=== PATIENT | female | born 1970 | race Caucasian/White ===

== ENCOUNTER 2019-01-23 13:02 | Emergency (ER) | payer SELFPAY ==
[2019-01-23] MEDS ORDERED: ONDANSETRON 4 MG/2 ML VIAL ONE (13:34)
[2019-01-23] MEDS ORDERED: MORPHINE 4 MG/ML SYR ONE (13:34)
[2019-01-23] MEDS ORDERED: NA CHLORIDE 0.9% 500 ML ONE (13:35)
--- NOTE | 2019-01-23 13:59 | RAD REPORT ---
EXAM DESCRIPTION: CT - Stone Protocol - 01/23/2019 1:35 pm CLINICAL HISTORY: Abdominal pain. Lower abdominal pain. Urinary frequency COMPARISON: None. TECHNIQUE: Computed axial tomography of the abdomen pelvis was obtained without oral or IV contrast. Lack of IV and oral contrast limits evaluation of solid organs, bowel, and vessels. Coronal reformat morena images were obtained and reviewed. All CT scans are performed using dose optimization technique as appropriate and may include automated exposure control or mA/KV adjustment according to patient size. FINDINGS: 1 millimeter right renal calculus. No hydronephrosis. An ureteral calculus is not noted. A bladder calculus is not present. The left lobe of the liver is prominent. Spleen, pancreas and adrenals appear grossly normal There is no evidence of diverticulitis. Small umbilical hernia contains fat IMPRESSION: 1 millimeter nonobstructing right renal calculus
[2019-01-23 14:03] LABS: Absolute Lymphocytes (CBC) 3.7 K/uL (0.7-4.9); Lymphocytes % 30.8 % (15.3-44.8); MPV 8.8 fL (7.6-11.3); RBC Red Blood Cell Count 4.48 M/uL (3.86-4.86)
[2019-01-23 14:23] LABS: Albumin 3.6 g/dL (3.4-5.0); Bilirubin Direct 0.1 mg/dL (0-0.2); Bilirubin Total 0.4 mg/dL (0.2-1.0); Potassium 3.9 mmol/L (3.5-5.1); Protein, Total 8.6 g/dL (6.4-8.2)
[2019-01-23 15:25] LABS: Urine Bacteria 20-50 /HPF (<20); Urine Culture Reflex Order REFLEXED; Urine RBC <5 /HPF (NONE SEEN)
[2019-01-23] MEDS ORDERED: CIPROFLOXACIN HCL 500 MG TAB ONE (15:37)
--- NOTE | 2019-01-23 15:41 | ER ---
Nurse's Notes [facility] Name: Pao Gonzales Age: 48 yrs Sex: Female : 1970 Arrival Date: 01/23/2019 Time: 13:05 Bed 24 Private MD: Diagnosis: Urinary tract infection, site not specified Presentation: 01/23 13:08 Presenting complaint: Right flank pain, fever, headache, and nausea x 2 days. TMAX 101. hb Transition of care: patient was not received from another setting of care. Onset of symptoms was January 22, 2019. Risk Assessment: Do you want to hurt yourself or someone else? Patient reports no desire to harm self or others. Initial Sepsis Screen: Does the patient meet any 2 criteria? No. Patient's initial sepsis screen is negative. Does the patient have a suspected source of infection? No. Patient's initial sepsis screen is negative. Care prior to arrival: None. 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 - Social history:: Smoking status: Patient uses tobacco products, smokes one-half pack cigarettes per day. - Ebola Screening: : No symptoms or risks identified at this time. Screenin:49 Abuse screen: Denies threats or abuse. Nutritional screening: No deficits noted. tw2 Tuberculosis screening: No symptoms or risk factors identified. Fall Risk None identified. Assessment: 13:49 General: Appears in no apparent distress. Behavior is calm, cooperative, appropriate tw2 for age. Pain: Complains of pain in abdomen. Neuro: Level of Consciousness is awake, alert, obeys commands, Oriented to person, place. Cardiovascular: Heart tones S1 S2 Patient's skin is warm and dry. Respiratory: Airway is patent Respiratory effort is even, unlabored, Respiratory pattern is regular, symmetrical, Breath sounds are clear bilaterally. GI: Abdomen is flat, non-distended, Bowel sounds present X 4 quads. Reports lower abdominal pain, upper abdominal pain, nausea. : No signs and/or symptoms were reported regarding the genitourinary system. EENT: No signs and/or symptoms were reported regarding the EENT system. Derm: No signs and/or symptoms reported regarding the dermatologic system. Musculoskeletal: Range of motion: intact in all extremities. 15:04 Reassessment: Patient appears in no apparent distress at this time. No changes from tw2 previously documented assessment. Patient and/or family updated on plan of care and expected duration. Pain level reassessed. Patient is alert, oriented x 3, equal unlabored respirations, skin warm/dry/pink. 15:51 Reassessment: Patient appears in no apparent distress at this time. No changes from tw2 previously documented assessment. Patient and/or family updated on plan of care and expected duration. Pain level reassessed. Patient is alert, oriented x 3, equal unlabored respirations, skin warm/dry/pink. Vital Signs: 13:09 BP 105 / 74; Pulse 100; Resp 16; Temp 98.7; Pulse Ox 100% on R/A; Weight 81.65 kg; hb Height 5 ft. 7 in. (170.18 cm); Pain 10/10; 15:04 BP 99 / 67; Pulse 74; Resp 17; Temp 97.9(TE); Pulse Ox 99% on R/A; tw2 13:09 Body Mass Index 28.19 (81.65 kg, 170.18 cm) hb ED Course: 13:05 Patient arrived in ED. mr 13:09 Triage completed. hb 13:09 Arm band placed on. hb 13:12 Bed in low position. Call light in reach. Pulse ox on. NIBP on. tw2 13:19 Tacos Barnes NP is PHCP. pm1 13:19 Cesar Harris MD is Attending Physician. pm1 13:31 Marizol Yi RN is Primary Nurse. tw2 13:40 Inserted saline lock: 22 gauge in right antecubital area, using aseptic technique. tw2 Blood collected. 15:05 Urine Microscopic Only Sent. tw2 15:52 No provider procedures requiring assistance completed. IV discontinued, intact, tw2 bleeding controlled, No redness/swelling at site. Pressure dressing applied. Administered Medications: 13:42 Drug: Zofran 4 mg Route: IVP; Site: right antecubital; tw2 14:33 Follow up: Response: No adverse reaction; Nausea is decreased tw2 13:44 Drug: morphine 4 mg {Note: RASS 0.} Route: IVP; Site: right antecubital; tw2 14:33 Follow up: Response: No adverse reaction; Pain is decreased; RASS: Alert and Calm (0) tw2 13:47 Drug: NS 0.9% 500 ml Route: IV; Rate: bolus; Site: right antecubital; tw2 15:20 Follow up: Response: No adverse reaction; IV Status: Completed infusion; IV Intake: tw2 500ml 15:38 Drug: Cipro 500 mg Route: PO; tw2 15:50 Follow up: Response: No adverse reaction tw2 Intake: 15:20 IV: 500ml; Total: 500ml. tw2 Outcome: 15:39 Discharge ordered by MD. pm1 15:52 Patient left the ED. tw2 15:52 Discharged to home ambulatory, with significant other. tw2 15:52 Condition: stable 15:52 Discharge instructions given to patient, significant other, Instructed on discharge instructions, follow up and referral plans. no drinking with medication, no driving heavy equipment, medication usage, Demonstrated understanding of instructions, follow-up care, medications, Prescriptions given X 4. Signatures: Maria L Hidalgo Patrick, JOSHUA SOFTWARE APPLICATION TESTER pm1 Elly Jaramillo, GREG GARZA Marizol Yi RN RN tw2
--- NOTE | 2019-01-23 15:42 | EDPHYS ---
Physician Documentation [facility] Name: Pao Gonzales Age: 48 yrs Sex: Female : 1970 Arrival Date: 01/23/2019 Time: 13:05 Bed 24 Private MD: ED Physician Cesar Harris HPI: 01/23 15:33 This 48 yrs old Female presents to ER via Ambulatory with complaints of Back pm1 Pain. 15:36 The patient presents with pain that is acute, with no known mechanism of injury. The pm1 symptoms are located in the right low back. Onset: The symptoms/episode began/occurred 3 day(s) ago. The pain does not radiate. Associated signs and symptoms: Pertinent positives: dysuria, fever, nausea, Pertinent negatives: abdominal pain, chest pain, numbness, tingling, vomiting. Modifying factors: The patient symptoms are alleviated by nothing, the patient symptoms are aggravated by nothing. Severity of symptoms: in the emergency department the symptoms are actually worse. The patient has not recently seen a physician, and does not have an established primary care provider. 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 - Social history:: Smoking status: Patient uses tobacco products, smokes one-half pack cigarettes per day. - Ebola Screening: : No symptoms or risks identified at this time. ROS: 15:33 Eyes: Negative for injury, pain, redness, and discharge, ENT: Negative for injury, pm1 pain, and discharge, Neck: Negative for injury, pain, and swelling, Cardiovascular: Negative for chest pain, palpitations, and edema, Respiratory: Negative for shortness of breath, cough, wheezing, and pleuritic chest pain. 15:33 : Negative for injury, bleeding, discharge, and swelling, MS/Extremity: Negative for injury and deformity, Skin: Negative for injury, rash, and discoloration. 15:33 Neuro: Negative for headache, weakness, numbness, tingling, and seizure. 15:33 Constitutional: Positive for subjective fever. 15:33 Abdomen/GI: Positive for nausea, Negative for abdominal pain, vomiting, diarrhea, constipation. 15:33 Back: Positive for flank pain, on the right. 15:43 : Positive for burning with urination. pm1 Exam: 15:33 Constitutional: This is a well developed, well nourished patient who is awake, alert, pm1 and in no acute distress. Head/Face: Normocephalic, atraumatic. Eyes: Pupils equal round and reactive to light, extra-ocular motions intact. Lids and lashes normal. Conjunctiva and sclera are non-icteric and not injected. Cornea within normal limits. Periorbital areas with no swelling, redness, or edema. ENT: Nares patent. No nasal discharge, no septal abnormalities noted. Tympanic membranes are normal and external auditory canals are clear. Oropharynx with no redness, swelling, or masses, exudates, or evidence of obstruction, uvula midline. Mucous membranes moist. Neck: Trachea midline, no thyromegaly or masses palpated, and no cervical lymphadenopathy. Supple, full range of motion without nuchal rigidity, or vertebral point tenderness. No Meningismus. Chest/axilla: Normal chest wall appearance and motion. Nontender with no deformity. No lesions are appreciated. Cardiovascular: Regular rate and rhythm with a normal S1 and S2. No gallops, murmurs, or rubs. Normal PMI, no JVD. No pulse deficits. Respiratory: Lungs have equal breath sounds bilaterally, clear to auscultation and percussion. No rales, rhonchi or wheezes noted. No increased work of breathing, no retractions or nasal flaring. Abdomen/GI: Soft, non-tender, with normal bowel sounds. No distension or tympany. No guarding or rebound. No evidence of tenderness throughout. 15:33 Skin: Warm, dry with normal turgor. Normal color with no rashes, no lesions, and no evidence of cellulitis. MS/ Extremity: Pulses equal, no cyanosis. Neurovascular intact. Full, normal range of motion. 15:33 Back: normal spinal alignment noted, vertebral tenderness, is not appreciated. 15:33 Neuro: Orientation: is normal, Motor: is normal, moves all fours, Sensation: is normal, no obvious gross deficits. Vital Signs: 13:09 BP 105 / 74; Pulse 100; Resp 16; Temp 98.7; Pulse Ox 100% on R/A; Weight 81.65 kg; hb Height 5 ft. 7 in. (170.18 cm); Pain 10/10; 15:04 BP 99 / 67; Pulse 74; Resp 17; Temp 97.9(TE); Pulse Ox 99% on R/A; tw2 13:09 Body Mass Index 28.19 (81.65 kg, 170.18 cm) hb MDM: 13:19 Patient medically screened. pm1 15:38 Data reviewed: vital signs. Data interpreted: Pulse oximetry: on room air is 99 %. pm1 Interpretation: normal. Counseling: I had a detailed discussion with the patient and/or guardian regarding: the historical points, exam findings, and any diagnostic results supporting the discharge/admit diagnosis, lab results, radiology results, the need for outpatient follow up, to return to the emergency department if symptoms worsen or persist or if there are any questions or concerns that arise at home. 01/23 13:23 Order name: Basic Metabolic Panel pm1 01/23 13:23 Order name: CBC with Diff pm01/23 13:23 Order name: Creatinine for Radiology pm01/23 13:23 Order name: Hepatic Function pm1 01/23 13:23 Order name: Lipase pm1 01/23 14:10 Order name: CBC with Automated Diff; Complete Time: 14:14 EDNV 01/23 13:23 Order name: CT Stone Protocol pm1 01/23 14:14 Order name: Urine Microscopic Only; Complete Time: 15:28 pm1 01/23 14:23 Order name: Creatinine (Radiology Only); Complete Time: 14:27 EDNV 01/23 14:26 Order name: Basic Metabolic Panel; Complete Time: 14:27 EDNV 01/23 14:26 Order name: Liver (Hepatic) Function; Complete Time: 14:27 EDNV 01/23 14:26 Order name: Lipase; Complete Time: 14:27 EDNV 01/23 15:08 Order name: Urine Dipstick--Ancillary (enter results) em01/23 15:09 Order name: Urine --Ancillary (enter results) em01/23 13:23 Order name: IV Saline Lock; Complete Time: 13:48 pm1 09/03 13:23 Order name: Labs collected and sent; Complete Time: 13:48 pm1 01/23 14:14 Order name: Urine Dipstick-Ancillary (obtain specimen); Complete Time: 15:05 pm1 01/23 14:14 Order name: Urine Test (obtain specimen); Complete Time: 15:05 pm1 Administered Medications: 13:42 Drug: Zofran 4 mg Route: IVP; Site: right antecubital; tw2 14:33 Follow up: Response: No adverse reaction; Nausea is decreased tw2 13:44 Drug: morphine 4 mg {Note: RASS 0.} Route: IVP; Site: right antecubital; tw2 14:33 Follow up: Response: No adverse reaction; Pain is decreased; RASS: Alert and Calm (0) tw2 13:47 Drug: NS 0.9% 500 ml Route: IV; Rate: bolus; Site: right antecubital; tw2 15:20 Follow up: Response: No adverse reaction; IV Status: Completed infusion; IV Intake: tw2 500ml 15:38 Drug: Cipro 500 mg Route: PO; tw2 15:50 Follow up: Response: No adverse reaction tw2 Disposition: 21:49 Co-signature as Attending Physician, Cesar Harris MD Available for consultation at ps1 all times . Disposition: 01/23/19 15:39 Discharged to Home. Impression: Urinary tract infection, site not specified. - Condition is Stable. - Discharge Instructions: Urinary Tract Infection, Adult. - Prescriptions for Tylenol- Codeine #3 300-30 mg Oral Tablet - take 2 tablets by ORAL route every 6 hours As needed; 20 tablet. Zofran 4 mg Oral Tablet - take 1 tablet by ORAL route every 8 hours As needed; 20 tablet. Cipro 500 mg Oral Tablet - take 1 tablet by ORAL route every 12 hours for 10 days; 20 tablet. Pyridium 200 mg Oral Tablet - take 1 tablet by ORAL route every 8 hours for 3 days; 9 tablet. - Medication Reconciliation Form, Thank You Letter, Antibiotic Education, Prescription Opioid Use form. - Follow up: Emergency Department; When: As needed; Reason: Worsening of condition. Follow up: Private Physician; When: 2 - 3 days; Reason: Recheck today's complaints, Continuance of care, Re-evaluation by your physician. - Problem is new. - Symptoms have improved. Signatures: Dispatcher [employer] EDMS Tacos Barnes, COIL WINDER HAND COIL WINDER HAND pm1 Elly Jaramillo, RN RN hb Marizol Yi RN RN tw2 eCsar Harris MD MD ps1 Corrections: (The following items were deleted from the chart) 15:37 15:33 Abdomen/GI: Positive for nausea and vomiting, Negative for abdominal pain, pm1 diarrhea, constipation, pm1 15:37 15:33 Back: Positive for flank pain, on the left, pm1 pm1 15:43 15:36 Associated signs and symptoms: Pertinent positives: fever, nausea, Pertinent pm1 negatives: abdominal pain, chest pain, dysuria, numbness, tingling, vomiting, pm1 15:52 15:39 01/23/2019 15:39 Discharged to Home. Impression: Urinary tract infection, site tw2 not specified. Condition is Stable. Forms are Medication Reconciliation Form, Thank You Letter, Antibiotic Education, Prescription Opioid Use. Follow up: Emergency Department; When: As needed; Reason: Worsening of condition. Follow up: Private Physician; When: 2 - 3 days; Reason: Recheck today's complaints, Continuance of care, Re-evaluation by your physician. Problem is new. Symptoms have improved. pm1
[2019-01-23 16:29] LABS: Urine Blood 1+ (NEG); Urine Glucose NEGATIVE (NEG); Urine Protein NEGATIVE (NEG); Urine pH 6.5 (5.0-7.0)
== END 2019-01-23 15:52 | disposition home or self-care (01) ==
LOC: ER 13:02
DX: N39.0 Urinary tract infection, site not specified (principal); F17.210 Nicotine dependence, cigarettes, uncomplicated; Z88.0 Allergy status to penicillin; Z88.6 Allergy status to analgesic agent
CPT/HCPCS: 36415; 74176; 76377; 80048; 80076; 81003; 81015; 81025; 83690; 85025; 87077; 87086; 87088; 87186; 96361; 96374; 96375; 99284; J2405

== ENCOUNTER 2019-05-18 11:05 | Inpatient (IN) | payer SELFPAY ==
--- OUTSIDE RECORDS SUMMARY | 2019-05-18 11:12 | XMS REPORT ---
:1970 [facility] [address] [place] [address] Care Team Providers Name Role Phone ALEAH ELPIDIO DAMICO Unavailable Unavailable Problems This patient has no known problems. Allergies, Adverse Reactions, Alerts This patient has no known allergies or adverse reactions. Medications This patient has no known medications. Results Test Description Test Time Test Comments Text Results Atomic Results Result Comments SCREEN, URINE 2018-12-21 07:40:00 Test Item Value Reference Range Comments TEST URINE (BEAKER) (test kgrk=487) Negative BASIC METABOLIC [id number] 07:30:00 Test Item Value Reference Range Comments SODIUM (BEAKER) (test 138 meq/L 136-145 heul=540) POTASSIUM (BEAKER) (test 3.8 meq/L 3.5-5.1 qbcv=145) CHLORIDE (BEAKER) (test 109 meq/L 98-107 xkvk=379) CO2 (BEAKER) (test 22 meq/L 22-29 hrzc=056) BLOOD UREA NITROGEN 12 mg/dL 7-21 (BEAKER) (test qzgx=772) CREATININE (BEAKER) (test 0.75 mg/dL 0.57-1.25 azyv=078) GLUCOSE RANDOM (BEAKER) 95 mg/dL 70-105 (test acqw=527) CALCIUM (BEAKER) (test 9.8 mg/dL 8.4-10.2 hecm=410) EGFR (BEAKER) (test mL/min/1.73 sq m INSUFFICIENT CLINICAL DATA lins=8521) TO CALCULATE ESTIMATED GFR. CBC W/PLT COUNT & AUTO [id number] 07:20:00 Test Item Value Reference Range Comments WHITE BLOOD CELL COUNT (BEAKER) (test jnch=690) 16.6 K/ L 3.5-10.5 RED BLOOD CELL COUNT (BEAKER) (test hgiv=420) 4.86 M/ L 3.93-5.22 HEMOGLOBIN (BEAKER) (test zsaj=540) 15.7 GM/DL 11.2-15.7 HEMATOCRIT (BEAKER) (test ekhb=216) 47.1 % 34.1-44.9 MEAN CORPUSCULAR VOLUME (BEAKER) (test wknt=575) 96.9 fL 79.4-94.8 MEAN CORPUSCULAR HEMOGLOBIN (BEAKER) (test 32.3 pg 25.6-32.2 cjye=920) MEAN CORPUSCULAR HEMOGLOBIN CONC (BEAKER) (test 33.3 GM/DL 32.2-35.5 mhhb=715) RED CELL DISTRIBUTION WIDTH (BEAKER) (test 12.7 % 11.7-14.4 xlkd=717) PLATELET COUNT (BEAKER) (test nswl=921) 285 K/CU MM 150-450 MEAN PLATELET VOLUME (BEAKER) (test jpay=827) 10.2 fL 9.4-12.3 NUCLEATED RED BLOOD CELLS (BEAKER) (test 0 /100 WBC 0-0 qycs=900) NEUTROPHILS RELATIVE PERCENT (BEAKER) (test 82 % qfbr=985) LYMPHOCYTES RELATIVE PERCENT (BEAKER) (test 10 % ssyp=780) MONOCYTES RELATIVE PERCENT (BEAKER) (test 7 % wkms=901) EOSINOPHILS RELATIVE PERCENT (BEAKER) (test 0 % pgap=075) BASOPHILS RELATIVE PERCENT (BEAKER) (test 0 % gxbs=483) NEUTROPHILS ABSOLUTE COUNT (BEAKER) (test 13.56 K/ L 1.56-6.13 ooae=694) LYMPHOCYTES ABSOLUTE COUNT (BEAKER) (test 1.67 K/ L 1.18-3.74 gibt=007) MONOCYTES ABSOLUTE COUNT (BEAKER) (test 1.16 K/ L 0.24-0.36 mexw=065) EOSINOPHILS ABSOLUTE COUNT (BEAKER) (test 0.06 K/ L 0.04-0.36 pzad=119) BASOPHILS ABSOLUTE COUNT (BEAKER) (test 0.05 K/ L 0.01-0.08 spta=308) IMMATURE GRANULOCYTES-RELATIVE PERCENT (BEAKER) 0 % 0-1 (test ynpl=2960) URINALYSIS W/ REFLEX URINE [id number] 07:17:00 Test Item Value Reference Range Comments COLOR (BEAKER) (test wlsr=342) Yellow CLARITY (BEAKER) (test ivqw=334) Cloudy SPECIFIC GRAVITY UA (BEAKER) (test atpl=996) 1.013 1.001-1.035 PH UA (BEAKER) (test mxwj=637) 7.0 5.0-8.0 PROTEIN UA (BEAKER) (test qwqf=533) 200 mg/dL Negative GLUCOSE UA (BEAKER) (test jaih=236) Negative Negative KETONES UA (BEAKER) (test jsam=157) Negative Negative BILIRUBIN UA (BEAKER) (test unbo=744) Negative Negative BLOOD UA (BEAKER) (test dvro=693) Moderate Negative NITRITE UA (BEAKER) (test wmfx=891) Positive Negative LEUKOCYTE ESTERASE UA (BEAKER) (test htvi=737) Large Negative UROBILINOGEN UA (BEAKER) (test eqsi=670) 0.2 mg/dL 0.2-1.0 RBC UA (BEAKER) (test dxun=788) 149 /HPF WBC UA (BEAKER) (test oyvk=260) 1380 /HPF BACTERIA (BEAKER) (test bsin=349) Many MUCUS (BEAKER) (test vlqh=4025) Few SQUAMOUS EPITHELIAL (BEAKER) (test jrvk=313) 3 /HPF SOURCE(BEAKER) (test hudj=4758)
--- OUTSIDE RECORDS SUMMARY | 2019-05-18 11:12 | XMS REPORT | Continuity of Care Document ---
:1970 Author Organization [facility] Address [address] [place] [address] Phone Unavailable Care Team Providers Name Role Phone PHYSICIAN, NO Primary Care Physician Unavailable Insurance Providers Guarantor Pao Mi Address [address] [place] [address] Email NONE Payer Self Pay Insurance Subscriber's Name Pao Russo Relationship Self / Same As Patient Group Number NA Group Name NA Advance Directives Directive Response Recorded Date/Time Advance Directives No 12/25/15 6:09pm Advance Directive on File No 07/29/18 5:36am Directive to Physicians/Living Will No 12/25/15 6:09pm Health Care Proxy No 12/25/15 6:09pm Name of Surrogate/Decision Maker NA 07/29/18 6:17am Organ Donor No 12/25/15 6:09pm Medical Power of Hoe Runner No 12/25/15 6:09pm Patient/Family Given Education Material R/T Y - KR...07/29/18 07/29/18 6: 17am Directives? Chief Complaint and Reason for Visit Chief Complaint Chest Pain Reason for Visit Chest pain Problems Medical Problem Onset Date Status Lice infested hair Unknown Acute Past Problems Medical Problem Onset Date Status Chest pain Unknown Acute Right ankle injury Unknown Acute Sprain of right knee/leg Unknown Acute Medications No medication information available. Social History Social History Problem Response Recorded Date/Time Onset Date Status Hx Physical Abuse No 07/29/2018 5:36am Not Applicable Not Applicable Smoking Status Start Date Stop Date Current every day smoker Hospital Discharge Instructions No hospital discharge instruction information available. Plan of Care Discharge Date 07/29/18 10:40am Instructions/Education Provided Chest Wall Pain, [id number] Forms Provided Portal Welcome Letter Prescriptions See Medication Section Referrals NO PHYSICIAN Functional Status No functional status information available. Allergies, Adverse Reactions, Alerts Allergen Type Severity Reaction Status Last Updated Aspirin ([id number]) Allergy Unknown Active 12/25/15 Penicillins ([id number]) Allergy Unknown Active 12/25/15 Immunizations No immunization information available. Vital Signs Acute Vital Signs Vital Response Date/Time Blood Pressure 120/78 mm Hg 07/29/2018 10:39am Pulse Pulse Rate (adult) 70 beats per minute (60 - 100) 07/29/2018 10:39am Respiratory Rate 13 breaths per minute (10 - 24) 07/29/2018 10:39am Temperature Source Oral 07/29/2018 10:39am Height 5 ft 7 in 07/29/2018 5:36am Weight 180.44 lb 07/29/2018 5:36am Body Mass Index 28.3 kg/m^2 07/29/2018 5:36am Results Laboratory Results Test Name Result Units Flags Reference Collection Result Comments Date/Time Date/Time White Blood 8.7 K/ul 4.0-11.5 07/29/2018 07/29/2018 Count 5:43am 5:59am Red Blood Count 4.41 M/ul 3.80-5.20 07/29/2018 07/29/2018 5:43am 5:59am Hemoglobin 14.6 g/dl 10.5-15.7 07/29/2018 07/29/2018 5:43am 5:59am Hematocrit 43.5 % 34.0-50.0 07/29/2018 07/29/2018 5:43am 5:59am Mean 98.5 fl H 78-98 07/29/2018 07/29/2018 Corpuscular 5:43am 5:59am Volume Mean 33.0 pg 26.2-33.4 07/29/2018 07/29/2018 Corpuscular 5:43am 5:59am Hemoglobin Mean 33.5 g/dl 31.5-36.2 07/29/2018 07/29/2018 Corpuscular 5:43am 5:59am Hemoglobin Concent Red Cell 12.2 % 11.5-15.5 07/29/2018 07/29/2018 Distribution 5:43am 5:59am Width Platelet Count 265 K/ul 137-338 07/29/2018 07/29/2018 5:43am 5:59am Mean Platelet 7.2 fl L 8.4-11.8 07/29/2018 07/29/2018 Volume 5:43am 5:59am Neutrophils (%) 46.2 % 44.4-80.1 07/29/2018 07/29/2018 (Auto) 5:43am 5:59am Lymphocytes (%) 40.3 % 10.0-50.0 07/29/2018 07/29/2018 (Auto) 5:43am 5:59am Monocytes (%) 9.5 % 3.6-12.04 07/29/2018 07/29/2018 (Auto) 5:43am 5:59am Eosinophils (%) 1.7 % 0.0-5.41 07/29/2018 07/29/2018 (Auto) 5:43am 5:59am Basophils (%) 2.4 % H 0.0-0.79 07/29/2018 07/29/2018 (Auto) 5:43am 5:59am Prothrombin 10.7 SECONDS 10.3-12.3 07/29/2018 07/29/2018 Time 5:43am 6:15am THERAPEUTIC LEVEL: 1.5 to 1.9 times normal range of PT Prothromb Time 0.97 07/29/2018 07/29/2018 International 5:43am 6:15am Recommended therapeutic range for patients receiving Ratio warfarin (coumadin) therapy: INR is 2.0 to 3.0 Recommended range for patients with mechanical prosthetic heart valves: INR is 2.5 to 3.5 Activated 25.4 SECONDS 22.5-37.0 07/29/2018 07/29/2018 Partial 5:43am 6:15am Thromboplast Time Random Glucose 76 mg/dL 74-106 07/29/2018 07/29/2018 5:43am 6:08am Blood Urea 11 mg/dL 6-20 07/29/2018 07/29/2018 Nitrogen 5:43am 6:08am Serum 270 L 280-300 07/29/2018 07/29/2018 Osmolality 5:43am 6:08am Creatinine 0.7 mg/dL 0.50-0.90 07/29/2018 07/29/2018 5:43am 6:08am Glomerular > 60.00 07/29/2018 07/29/2018 GFR RESULTS ARE REPORTED IN mL/min/1.73m2. Filtration Rate 5:43am 6:08am Calc Normal GFR: >60mL/min Moderately decreased GFR: 30-59 mL/min Severely decreased GFR: 15-29 mL/min Kidney Failure (or Dialysis): <15 mL/min The calculated eGFR is not valid for patients younger than 18 years or older than 75 years. BUN/Creatinine 15.7 12-20 07/29/2018 07/29/2018 Ratio 5:43am 6:08am Sodium Level 136 mmol/L 135-145 07/29/2018 07/29/2018 5:43am 6:08am Potassium Level 3.8 mmol/L 3.5-5.2 07/29/2018 07/29/2018 5:43am 6:08am Chloride Level 100 mmol/L 98-108 07/29/2018 07/29/2018 5:43am 6:08am Carbon Dioxide 21 mmol/L 21-32 07/29/2018 07/29/2018 Level 5:43am 6:08am Anion Gap 18.8 mEq/L 12-20 07/29/2018 07/29/2018 5:43am 6:08am Calcium Level 9.3 mg/dL 8.6-10.0 07/29/2018 07/29/2018 5:43am 6:08am Magnesium Level 1.9 mg/dL 1.6-2.6 07/29/2018 07/29/2018 5:43am 6:08am Total Protein 8.2 g/dL 6.6-8.7 07/29/2018 07/29/2018 5:43am 6:08am Albumin 4.0 g/dL 3.5-5.2 07/29/2018 07/29/2018 5:43am 6:08am Globulin 4.2 gm/dL 07/29/2018 07/29/2018 5:43am 6:08am Albumin/Globuli 1.0 >1.0 07/29/2018 07/29/2018 n Ratio 5:43am 6:08am Total Bilirubin 0.3 mg/dL 0.0-1.2 07/29/2018 07/29/2018 5:43am 6:08am Aspartate Amino 239 U/L H 15-32 07/29/2018 07/29/2018 Transf 5:43am 6:08am (AST/SGOT) Alanine 166 U/L H 0-33 07/29/2018 07/29/2018 Aminotransferas 5:43am 6:08am e (ALT/SGPT) KW-Obz-F-Type 30 pg/mL 0-125 07/29/2018 07/29/2018 Natriuretic 5:43am 6:11am Peptide Total Alkaline 97 U/L 35-105 07/29/2018 07/29/2018 Phosphatase 5:43am 6:08am Urine NEGATIVE NG/ML NEGATIVE 07/29/2018 07/29/2018 Amphetamines 7:25am 7:42am Screen Urine NEGATIVE NG/ML NEGATIVE 07/29/2018 07/29/2018 Barbiturates, 7:25am 7:42am Quantitative Urine NEGATIVE NG/ML NEGATIVE 07/29/2018 07/29/2018 Benzodiazepines 7:25am 7:42am Screen Urine NEGATIVE NG/ML NEGATIVE 07/29/2018 07/29/2018 Cannabinoids 7:25am 7:42am Urine Cocaine NEGATIVE NG/ML NEGATIVE 07/29/2018 07/29/2018 Metabolite 7:25am 7:42am Urine Opiates NEGATIVE NG/ML NEGATIVE 07/29/2018 07/29/2018 Screen 7:25am 7:42am Urine NEGATIVE NG/ML NEGATIVE 07/29/2018 07/29/2018 Phencyclidine 7:25am 7:42am (PCP) Level Methadone Level NEGATIVE NG/ML NEGATIVE 07/29/2018 07/29/2018 7:25am 7:42am Propoxyphene NEGATIVE NG/ML NEGATIVE 07/29/2018 07/29/2018 Level 7:25am 7:42am Oxycodone Level NEGATIVE NG/ML NEGATIVE 07/29/2018 07/29/2018 7:25am 7:42am Urine Drug . 07/29/2018 07/29/2018 DRUGS OF ABUSE CUT-OFF VALUES Screen Note 7:25am 7:30am AMPHETAMINES (AMPH) NEGATIVE (CUT OFF CONC: 1000 NG/ML) BARBITUATES (LAWRENCE) NEGATIVE (CUT OFF CONC: 200 NG/ML) BENZODIAZEPINES (NIGHAT) NEGATIVE (CUT OFF CONC: 300 NG/ML) CANNABINOIDS (THC) NEGATIVE (CUT OFF CONC: 50 NG/ML) COCAINE (CROW) NEGATIVE (CUT OFF CONC: 300 NG/ML) OPIATES (OPI) NEGATIVE (CUT OFF CONC: 300 NG/ML) PHENCYCLIDINE (PCP) NEGATIVE (CUT OFF CONC: 25 NG/ML)METHADONE (MTD) NEGATIVE (CUT OFF CONC: 300 NG/ML) PROPOXYPHENE (PPX) NEGATIVE (CUT OFF CONC: 300 NG/ML) OXYCODONE (OXY) NEGATIVE (CUT OFF CONC: 100 NG/ML) ANY POSITIVE RESULT IS UNCONFIRMED. CONFIRMATION AND QUANTITATION AVAILABLE UPON MD REQUEST. Ethyl Alcohol 30.9 mg/dL H 0.00-10.1 07/29/2018 07/29/2018 Level 5:43am 7:10am Creatine Kinase 60 U/L 20-180 07/29/2018 07/29/2018 5:43am 6:08am Troponin I < 0.30 ng/mL 0.0-0.5 07/29/2018 07/29/2018 Published clinical studies have shown elevations of cTnI in 9:04am 9:38am patients with myocardial injury, as seen in unstable angina pectoris, cardiac contusions, and heart transplants. Elevations have also been seen in patients with rhabdomyolysis and polymyositis. Elevated troponin levels point to myocardial injury, but are not necessarily indicative of an ischemic mechanism. The term AZ should be used when there is evidence of cardiac damage, as detected by marker proteins in a clinical setting consistent with myocardial ischemia. If the clinical circumstance suggests that an ischemic mechanism is unlikely, other causes of cardiac injury should be considered. For diagnostic purposes, the results should always be assessed in conjunction with the patient's medical history, clinical examination and other findings. Creatine Kinase < 1.0 ng/ml 0.0-3.6 07/29/2018 07/29/2018 MB 5:43am 6:11am DIAGNOSTIC CITERIA: CKMB CKMB RELATIVE INDEX SUGGESTIVE OF NON-AMI < or=5 N/A MILLAN ZONE (INCONCLUSIVE) > 5 < or=4 SUGGESTIVE OF AMI >5 > 4 Myoglobin < 25 ng/mL L 25-58 07/29/2018 07/29/2018 5:43am 6:10am Procedures Procedure Status Date Provider(s) X-ray of chest, single view Completed 07/29/18 NI VENEGAS MD Encounters Encounter Location Arrival/Admit Date Discharge/Depart Date Attending Provider Departed [place] 07/29/18 5:35am 07/29/18 10:40am KIRSTEN THOMSON [facility] Recent Diagnosis
[2019-05-18] MEDS ORDERED: ONDANSETRON 4 MG/2 ML VIAL ONE (11:33)
[2019-05-18] MEDS ORDERED: MORPHINE 4 MG/ML SYR ONE (11:33)
[2019-05-18] MEDS ORDERED: NA CHLORIDE 0.9% 1,000 ML ONE (11:33)
[2019-05-18 11:47] LABS: Absolute Lymphocytes (CBC) 2.3 K/uL (0.7-4.9); Basophils % 0.4 % (0-1.3); Lymphocytes % 10.2 % (15.3-44.8); MPV 8.2 fL (7.6-11.3); RBC Red Blood Cell Count 4.65 M/uL (3.86-4.86)
[2019-05-18] MEDS ORDERED: FENTANYL CITR 100 MCG/2 ML ONE (12:10)
[2019-05-18 12:28] LABS: Albumin 3.1 g/dL (3.4-5.0); Bilirubin Direct 0.2 mg/dL (0-0.2); Bilirubin Total 0.4 mg/dL (0.2-1.0); Protein, Total 8.4 g/dL (6.4-8.2)
[2019-05-18 12:30] LABS: Urine Blood 2+ (NEG); Urine Glucose NEGATIVE (NEG); Urine Protein 2+ (NEG); Urine pH 5.5 (5.0-7.0)
[2019-05-18 12:38] LABS: Potassium 2.9 mmol/L (3.5-5.1)
--- NOTE | 2019-05-18 13:01 | RAD REPORT ---
EXAM DESCRIPTION: CT - Abdomen Pelvis W Contrast - 05/18/2019 12:39 pm CLINICAL HISTORY: right lower abdominal pain COMPARISON: None. TECHNIQUE: Biphasic, helical CT imaging of the abdomen and pelvis was performed following 100 ml non -ionic IV contrast. No oral contrast administered. All CT scans are performed using dose optimization technique as appropriate and may include automated exposure control or mA/KV adjustment according to patient size. FINDINGS: No suspicious findings in the lung bases. The liver, spleen, and pancreas show no suspicious findings. Gallbladder is distended but not dilated . No wall thickening or edema. Gallstones can be occult. No biliary tree dilatation. No hydronephrosis or obstructing calculus. There is moderate severity heterogeneity of the right basil l parenchymal enhancement pattern. Left kidney shows normal cortical enhancement pattern. No abscess. Mild stranding seen in the right-side perinephric fatty tissues. No solid mass lesions seen. Urinary bladder is only partially filled. Uterus and ovaries show no suspicious findings. No adrenal abnorma lities. No dilated bowel loops. Fluid filled large and small bowel loops are present. This could be a nonspec ific enteritis or may be reactive change secondary to the finding. No free air, abnormal free flu id or pneumatosis. No hernia, mass or bulky lymphadenopathy. No suspicious bony findings. IMPRESSION: Moderate severity right-sided pyelonephritis. No abscess or other emergent complication. Fluid filled large and small bowel loops may indicate a concurrent enteritis or this may be a seconda ry response to the pyelonephritis.
[2019-05-18] MEDS ORDERED: NS KCL 20MEQ 1,000 ML IV ONE (13:07)
[2019-05-18 13:12] LABS: Blood Morphology Comment NOT SEEN (NOT SEEN); Platelet Estimate ADEQ
[2019-05-18] MEDS ORDERED: Levofloxacin 750mg IV 750 MG/150 ML BAG IV ONE (13:27)
--- NOTE | 2019-05-18 13:28 | ER ---
Nurse's Notes [facility] Name: Pao Gonzales Age: 48 yrs Sex: Female : 1970 Arrival Date: 05/18/2019 Time: 11:07 Bed 15 Private MD: Diagnosis: Dehydration;Hypokalemia;Pyelonephritis Presentation: 05/18 11:17 Presenting complaint: Presenting complaint: Right flank pain, N/V/D, and burning with hb urination x 4-5 days. 11:17 Transition of care: patient was not received from another setting of care. Onset of hb symptoms was May 15, 2019. Risk Assessment: Do you want to hurt yourself or someone else? Patient reports no desire to harm self or others. Initial Sepsis Screen: Does the patient meet any 2 criteria? No. Patient's initial sepsis screen is negative. Does the patient have a suspected source of infection? No. Patient's initial sepsis screen is negative. Care prior to arrival: None. 11:17 Method Of Arrival: Ambulatory hb 11:17 Acuity: YOSHI 3 hb Historical: - Allergies: 11:18 Aspirin; ch 11:18 PENICILLINS; ch 11:18 Aspirin; hb 11:18 PENICILLINS; hb - PMHx: 11:18 breast cancer; kidney problems; kidney problems; ch 11:18 kidney problems; breast cancer; hb - PSHx: 11:18 Breast biopsy; ch 11:18 ; hb - Immunization history:: Adult Immunizations up to date, Adult Immunizations up to date. - Social history:: Smoking status: Smoking status: Patient uses tobacco products, smokes one pack cigarettes per day. - Ebola Screening: : Patient negative for fever greater than or equal to 101.5 degrees Fahrenheit, and additional compatible Ebola Virus Disease symptoms Patient denies exposure to infectious person Patient denies travel to an Ebola-affected area in the 21 days before illness onset No symptoms or risks identified at this time No symptoms or risks identified at this time. Screenin:30 Abuse screen: Denies threats or abuse. Denies injuries from another. Nutritional ch screening: No deficits noted. Tuberculosis screening: No symptoms or risk factors identified. Fall Risk None identified. Assessment: 11:35 General: Appears in no apparent distress. comfortable, Behavior is calm, cooperative, ch appropriate for age. Pain: Complains of pain in right lower quadrant, left lower quadrant and abdomen diffusely Pain currently is 8 out of 10 on a pain scale. Pain began gradually, 5 days ago. Neuro: No deficits noted. Respiratory: No deficits noted. GI: Abdomen is round non-distended, Bowel sounds present X 4 quads. Abd is soft X 4 quads Abdomen is tender to palpation in right lower quadrant and left lower quadrant Reports bloating, diarrhea, nausea, vomiting. : No signs and/or symptoms were reported regarding the genitourinary system. Derm: Skin is pink, warm \T\ dry. Musculoskeletal: No signs and/or symptoms reported regarding the musculoskeletal system. 12:30 Reassessment: Patient appears in no apparent distress at this time. ch 13:12 Reassessment: Patient appears in no apparent distress at this time. Patient and/or family updated on plan of care and expected duration. Pain level reassessed. Patient is alert, oriented x 3, equal unlabored respirations, skin warm/dry/pink. Patient states feeling better. 14:30 Reassessment: Patient appears in no apparent distress at this time. Patient and/or tr5 family updated on plan of care and expected duration. Pain level reassessed. Patient is alert, oriented x 3, equal unlabored respirations, skin warm/dry/pink. Pt in bed resting. Vital Signs: 11:18 BP 121 / 87; Pulse 89; Resp 16; Temp 98.4; Pulse Ox 100% ; Weight 81.65 kg; Height 5 hb ft. 7 in. (170.18 cm); Pain 9/10; 11:35 BP 108 / 78; Pulse 80; Resp 12; Temp 98.2; Pulse Ox 99% on R/A; Pain 5/10; ch 12:30 BP 114 / 72; Pulse 84; Resp 12; Temp 98.5; Pulse Ox 99% on R/A; Pain 6/10; ch 13:30 BP 96 / 65; Pulse 82; Resp 16; Pulse Ox 100% on R/A; tr5 15:02 BP 95 / 72; Pulse 74; Resp 17; Pulse Ox 98% on R/A; tr5 11:18 Body Mass Index 28.19 (81.65 kg, 170.18 cm) hb ED Course: 11:07 Patient arrived in ED. as 11:13 Ernesto Carrera PA is PHCP. [facility] 11:13 Andrey Amor MD is Attending Physician. jm 11:16 Mehreen Sood, RN is Primary Nurse. ch 11:18 Triage completed. hb 11:18 Arm band placed on. hb 11:40 No apparent distress. Resting quietly. ch 11:40 Patient has correct armband on for positive identification. Placed in gown. Bed in low ch position. Call light in reach. Side rails up X 1. Adult w/ patient. Pulse ox on. NIBP on. Warm blanket given. 11:40 No provider procedures requiring assistance completed. Inserted saline lock: 20 gauge ch in right antecubital area, using aseptic technique. Blood collected. 11:56 Radiology exam delayed due to lab results not completed at this time. (BUN/Creatinine). nj 12:37 Notified Nurse Practitioner and/or Physician Conditioning Machine Operator of a critical lab result(s), K sg 2.9. 12:41 CT Abd/Pelvis - IV Contrast Only In Process Unspecified. EDRI 13:27 Bebe Stovall MD is Hospitalizing Provider. [facility] 15:00 Mitchell Xie, GREG is Primary Nurse. tr5 15:03 Awaiting bed assignment. tr5 16:22 Patient admitted, IV remains in place. tr5 Administered Medications: 11:26 Drug: Zofran 4 mg Route: IVP; Site: right antecubital; ch 12:00 Follow up: Response: No adverse reaction ch 12:04 Follow up: Response: No adverse reaction ch 11:26 Drug: morphine 4 mg Route: IVP; Site: right antecubital; ch 12:03 Follow up: Response: No adverse reaction ch 12:15 Follow up: Response: No adverse reaction; No change in condition ch 11:27 Drug: NS 0.9% 1000 ml Route: IV; Rate: 1 bolus; Site: right antecubital; ch 12:04 Follow up: IV Status: Completed infusion; IV Intake: 1000ml ch 12:57 Follow up: IV Status: Completed infusion; IV Intake: 1000ml ch 12:15 Drug: fentaNYL (PF) 50 mcg Route: IVP; Site: right antecubital; ch 13:11 Drug: Potassium Chloride 20 mEq Route: IV; Rate: 500 ml/hr; Site: right antecubital; ch 13:25 Drug: LevaQUIN 750 mg Volume: 150 ml; Route: IVPB; Infused Over: 90 mins; Site: right ch antecubital; Intake: 12:04 IV: 1000ml; Total: 1000ml. ch 12:57 IV: 1000ml; Total: 2000ml. ch Outcome: 13:27 Decision to Hospitalize by Provider. thelma 16:20 Admitted to Med/surg accompanied by tech, Report called to Polina Sanchez RN tr5 16:20 Condition: stable 16:20 Instructed on the need for admit. 16:48 Patient left the ED. tr5 Signatures: Dispatcher [employer] Mehreen Burgos RN RN ch Gay, Steven, RN RN sg Mickail, Joel, PA PA jmm Martinez, Amelia as Baxter, Heather, RN RN hb Jordan, Nathan nj Rodriguez, Tommie, RN RN tr5 Corrections: (The following items were deleted from the chart) 11:18 11:17 Presenting complaint: ch hb
--- NOTE | 2019-05-18 13:29 | EDPHYS ---
Physician Documentation [facility] Name: Pao Gonzales Age: 48 yrs Sex: Female : 1970 Arrival Date: 05/18/2019 Time: 11:07 Bed 15 Private MD: ED Physician Andrey Amor HPI: 05/18 11:21 This 48 yrs old Female presents to ER via Ambulatory with complaints of jmm Urinary Problem, Vomiting/Diarrhea. 11:21 The patient presents with abdominal pain. Onset: The symptoms/episode began/occurred jmm gradually, 5 day(s) ago. The symptoms do not radiate. Associated signs and symptoms: Pertinent positives: nausea and vomiting, diarrhea. The symptoms are described as achy. Modifying factors: The symptoms are alleviated by nothing, the symptoms are aggravated by nothing. This is a 48 year old female with a history of renal disease, breast cancer that presents to the ED with complaint of vomiting, diarrhea, lower abdominal pain beginning 5 days ago. Denies infectious exposure, denies recent abx use. . Historical: - Allergies: 11:18 Aspirin; ch 11:18 PENICILLINS; ch 11:18 Aspirin; hb 11:18 PENICILLINS; hb - PMHx: 11:18 breast cancer; kidney problems; kidney problems; ch 11:18 kidney problems; breast cancer; hb - PSHx: 11:18 Breast biopsy; ch 11:18 ; hb - Immunization history:: Adult Immunizations up to date, Adult Immunizations up to date. - Social history:: Smoking status: Smoking status: Patient uses tobacco products, smokes one pack cigarettes per day. - Ebola Screening: : Patient negative for fever greater than or equal to 101.5 degrees Fahrenheit, and additional compatible Ebola Virus Disease symptoms Patient denies exposure to infectious person Patient denies travel to an Ebola-affected area in the 21 days before illness onset No symptoms or risks identified at this time No symptoms or risks identified at this time. ROS: 11:21 Constitutional: Negative for fever, chills, and weight loss, Cardiovascular: Negative jmm for chest pain, palpitations, and edema, Respiratory: Negative for shortness of breath, cough, wheezing, and pleuritic chest pain. 11:21 Abdomen/GI: Positive for abdominal pain. 11:21 Neuro: Positive for headache. 11:21 All other systems are negative. Exam: 11:21 Head/Face: atraumatic. Eyes: EOMI, no conjunctival erythema appreciated ENT: Moist jmm Mucus Membranes Neck: Trachea midline, Supple Chest/axilla: Normal chest wall appearance and motion. Cardiovascular: Regular rate and rhythm. No edema appreciated Respiratory: Normal respirations, no respiratory distress appreciated 11:21 Back: Normal ROM Skin: General appearance color normal MS/ Extremity: Moves all extremities, no obvious deformities appreciated, no edema noted to the lower extremities Neuro: Awake and alert, normal gait Psych: Behavior is normal, Mood is normal, Patient is cooperative and pleasant 11:21 Constitutional: The patient appears alert, awake, uncomfortable. 11:21 Abdomen/GI: Inspection: abdomen appears normal, Bowel sounds: normal, Palpation: soft, moderate abdominal tenderness, in the right lower quadrant. Vital Signs: 11:18 BP 121 / 87; Pulse 89; Resp 16; Temp 98.4; Pulse Ox 100% ; Weight 81.65 kg; Height 5 hb ft. 7 in. (170.18 cm); Pain 9/10; 11:35 BP 108 / 78; Pulse 80; Resp 12; Temp 98.2; Pulse Ox 99% on R/A; Pain 5/10; ch 12:30 BP 114 / 72; Pulse 84; Resp 12; Temp 98.5; Pulse Ox 99% on R/A; Pain 6/10; ch 13:30 BP 96 / 65; Pulse 82; Resp 16; Pulse Ox 100% on R/A; tr5 15:02 BP 95 / 72; Pulse 74; Resp 17; Pulse Ox 98% on R/A; tr5 11:18 Body Mass Index 28.19 (81.65 kg, 170.18 cm) hb MDM: 11:[address] [facility] 13:21 Data reviewed: vital signs, nurses notes. Counseling: I had a detailed discussion with [facility] the patient and/or guardian regarding: the historical points, exam findings, and any diagnostic results supporting the discharge/admit diagnosis. 13:25 Data reviewed: lab test result(s), radiologic studies, CT scan. Counseling: I had a [facility] detailed discussion with the patient and/or guardian regarding: lab results, radiology results, the need for further work-up and treatment in the hospital. ED course: I discussed the patient with Dr. Stovall whom accepted admission. . 05/18 11:23 Order name: Basic Metabolic Panel; Complete Time: 13:00 [facility] 05/18 11:23 Order name: CBC with Diff; Complete Time: 13:19 [facility] 05/18 11:23 Order name: Creatinine for Radiology; Complete Time: 12:07 [facility] 05/18 11:23 Order name: Hepatic Function; Complete Time: 13:00 [facility] 05/18 11:23 Order name: Lipase; Complete Time: 13:00 [facility] 05/18 11:53 Order name: Manual Differential; Complete Time: 13:19 [facility] 05/18 12:26 Order name: Urine Dipstick--Ancillary (enter results); Complete Time: 13:00 05/18 12:26 Order name: Urine --Ancillary (enter results); Complete Time: 13:00 05/18 12:43 Order name: Urine Microscopic Only; Complete Time: 13:37 05/18 12:43 Order name: Urine Culture 05/18 13:46 Order name: CBC with Automated Diff [facility] 05/18 13:46 Order name: CBC with Automated Diff [facility] 05/18 13:46 Order name: CBC with Automated Diff [facility] 05/18 13:46 Order name: CBC with Automated Diff [facility] 05/18 11:23 Order name: IV Saline Lock; Complete Time: 11:31 [facility] 05/18 11:23 Order name: Labs collected and sent; Complete Time: 11:31 [facility] 05/18 11:24 Order name: CT Abd/Pelvis - IV Contrast Only; Complete Time: 13:05 [facility] 05/18 13:45 Order name: CONS Pharmacy Consult [facility] 05/18 13:45 Order name: Clear Liquid [facility] 05/18 13:46 Order name: Comprehensive Metabolic Panel [facility] 05/18 13:46 Order name: Comprehensive Metabolic Panel [facility] 05/18 13:46 Order name: Blood Culture [facility] 05/18 13:49 Order name: Magnesium; Complete Time: 14:14 [facility] 05/18 13:49 Order name: Phosphorus; Complete Time: 14:14 [facility] Administered Medications: 11:26 Drug: Zofran 4 mg Route: IVP; Site: right antecubital; ch 12:00 Follow up: Response: No adverse reaction ch 12:04 Follow up: Response: No adverse reaction ch 11:26 Drug: morphine 4 mg Route: IVP; Site: right antecubital; ch 12:03 Follow up: Response: No adverse reaction ch 12:15 Follow up: Response: No adverse reaction; No change in condition ch 11:27 Drug: NS 0.9% 1000 ml Route: IV; Rate: 1 bolus; Site: right antecubital; ch 12:04 Follow up: IV Status: Completed infusion; IV Intake: 1000ml ch 12:57 Follow up: IV Status: Completed infusion; IV Intake: 1000ml ch 12:15 Drug: fentaNYL (PF) 50 mcg Route: IVP; Site: right antecubital; ch 13:11 Drug: Potassium Chloride 20 mEq Route: IV; Rate: 500 ml/hr; Site: right antecubital; ch 13:25 Drug: LevaQUIN 750 mg Volume: 150 ml; Route: IVPB; Infused Over: 90 mins; Site: right ch antecubital; Disposition: 17:50 Co-signature as Attending Physician, Andrey Amor MD I agree with the assessment and kdr plan of care. Disposition: 05/18/19 13:27 Hospitalization ordered by Bebe Stovall for Observation. Preliminary diagnosis are Dehydration, Hypokalemia, Pyelonephritis. - Bed requested for Telemetry/MedSurg (observation). - Status is Observation. tr5 - Condition is Stable. - Problem is new. - Symptoms have improved. UTI on Admission? Yes Signatures: Dispatcher [employer] EDMS Xochitl Mcdowell Christina, RN RN Andrey Amor MD MD [facility] Ernesto Carrera PA PA [facility] Elly Jaramillo RN RN hb Rodriguez, Tommie, RN RN tr5 Corrections: (The following items were deleted from the chart) 15:41 13:27 Hospitalization Ordered by Bebe Stovall MD for Observation. Preliminary bd diagnosis is Dehydration; Hypokalemia; Pyelonephritis. Bed requested for Telemetry/MedSurg (observation). Status is Observation. Condition is Stable. Problem is new. Symptoms have improved. UTI on Admission? Yes. [facility] 16:48 15:41 05/18/2019 13:27 Hospitalization Ordered by Bebe Stovall MD for Observation. tr5 Preliminary diagnosis is Dehydration; Hypokalemia; Pyelonephritis. Bed requested for Telemetry/MedSurg (observation). Status is Observation. Condition is Stable. Problem is new. Symptoms have improved. UTI on Admission? Yes. bd
[2019-05-18 13:35] LABS: Urine Bacteria LOADED /HPF (<20); Urine Culture Reflex Order NOT NEEDED; Urine Mucus 2+ /HPF (NONE SEEN)
[2019-05-18] MEDS ORDERED: ONDANSETRON 4 MG/2 ML VIAL IV PRN (13:37)
[2019-05-18] MEDS ORDERED: ACETAMINOPHEN 500 MG TAB PO PRN (13:37)
[2019-05-18] MEDS ORDERED: HYDRALAZINE HCL 20 MG/ML VIAL IV PRN (13:40)
[2019-05-18] MEDS ORDERED: MORPHINE 2 MG/ML SYR IV PRN (13:40)
[2019-05-18] MEDS ORDERED: MAGNESIUM SULFATE 1 gm IVPB 1 GM/100 ML BAG IV ONE (13:40)
[2019-05-18] MEDS ORDERED: POTASSIUM PHOS 30 MM in NA CHLORIDE 0.9% 500 ML IV ONE ×2 (13:40→17:00)
[2019-05-18] MEDS ORDERED: POTASSIUM 25 MEQ EFFERV TAB PO ONE (13:40)
[2019-05-18 13:59] LABS: Magnesium 2.2 mg/dL (1.8-2.4); Phosphorus 2.6 mg/dL (2.5-4.9)
[2019-05-18] MEDS ORDERED: Levofloxacin500mg IV 500 MG/100 ML BAG IV SCH ×2 (14:00→18:00)
[2019-05-18] MEDS ORDERED: LOPERAMIDE HCL 2 MG CAPSULE PO PRN (14:33)
[2019-05-18 17:31] VITALS: BMI 28.1
[2019-05-18] MEDS: HEPARIN 5000 UNIT/ML 1 ML VIAL SQ SCH (18:00)
[2019-05-18] MEDS: D5.45NS W/KCL 20MEQ 1,000 ML IV SCH (18:00)
[2019-05-18] MEDS: MORPHINE 2 MG/ML SYR IV PRN (18:30)
[2019-05-18] MEDS ORDERED: INFLUENZA VACCINE (for 3y+) 0.5 ML DOSE IMVAC ONE (19:00)
[2019-05-18] MEDS: FAMOTIDINE 20 MG TAB PO SCH (21:57)
--- NOTE | 2019-05-19 00:05 | HP ---
Date of Admission: 05/18/2019 Presenting Complaint: Fever and flank pain. History Of Present Illness: Christian Cedeno is a 48-year-old female with history of chroni c tobacco use, previous history of breast cancer treated with chemo in 1988, with no recurrence, not on any medications, history of recurrent UTIs, last episode was 6 months ago, presented because of dy suria since the last 5 days associated with new onset right flank pain, nausea with vomiting, loss of appetite as well as intermittent fever and chills. The patient also admits to generalized body ache s with myalgia. On presentation, she denies any sick contacts. On presentation, she was noted with urinalysis showing evidence of UTI as well as a CT showing evidence of right pyelonephritis. She has been admitted for further management. She states she has had multiple episodes, some of which has b een treated with Keflex successfully in the past. Past Medical History: Significant for breast cancer status post lumpectomy as well as chemo. Social History: Patient lives in the community. History of tobacco use. Smokes about a pack per da y. No history of alcohol or illicit drug use. Family History: Significant for parents dying from multiple cancers. Patient not sure of all the ca ncers. Past Surgical History: Significant for breast lumpectomy as well as section x2. Allergies: ASPIRIN WELL PENICILLIN, BUT ABLE TO TOLERATE KEFLEX. Review of Systems: All systems reviewed x10 were negative except as mentioned above. Patient complaining of headaches a lso. Physical Examination: Current Vital Signs: Blood pressure of 97/80, pulse of 81, respiratory rate of 18, O2 saturation is 99% on room air. General: Overweight middle-aged female, toxic looking, calm, not in any distress. Head: Atraumatic, normocephalic. Pupils equal and reactive to light. Anicteric. Dry oral mucosa. Neck: No JVD. No carotid bruit. Respiratory: Good air entry. No crepitation. Cardiovascular: S1, S2. Rate and rhythm regular. GI: Abdomen distended, but soft. Bowel sounds positive. No organomegaly. Rectal: Deferred. Mild tenderness over the suprapubic area. Significant right CVA tenderness elici morena. Extremities: No pedal edema. No calf tenderness. Neuro: Patient is alert and oriented. Cranial nerves 2 through 12 grossly intact. Laboratory Data: WBC of 22,000 with left shift. Potassium of 2.9, creatinine of 1.1. Urinalysis sh ows 20-50 wbc's as well as 10-[address] of the abdomen shows evidence of colon, enteritis as well as right pyelonephritis Impression: 1.Right pyelonephritis as well as enteritis. 2.Chronic tobacco use. Plan: 1.We will admit patient to inpatient status. We will manage patient for the following, right pyelo. We will obtain urine culture. Start empirical antibiotics with Levaquin and Rocephin given the sev erity of the right pyelo. We will start pain medication as needed. Monitor fever. 2.Enteritis, we will do clear liquids for now. We will do p.r.n. loperamide if persistent diarrhea. 3.Chronic tobacco use, tobacco cessation advised, we will do nicotine patch. 4.DVT prophylaxis, subcutaneous heparin. 5.Disposition. Possible hospital stay for more than 2 nights. 6.Advance directives. Patient is a full code. Total time spent in review of record, discussion with patient, greater than 60 minutes. EO/MODL Voice ID: [id number]
[2019-05-19] MEDS: HEPARIN 5000 UNIT/ML 1 ML VIAL SQ SCH ×2 (00:56→09:27)
[2019-05-19] MEDS: D5.45NS W/KCL 20MEQ 1,000 ML IV SCH ×2 (03:52)
[2019-05-19] MEDS: MORPHINE 2 MG/ML SYR IV PRN ×2 (03:53→09:27)
[2019-05-19 05:00] LABS: Magnesium 2.3 mg/dL (1.8-2.4); Potassium 4.3 mmol/L (3.5-5.1)
[2019-05-19 05:05] LABS: Albumin 2.2 g/dL (3.4-5.0); Bilirubin Total 0.2 mg/dL (0.2-1.0); Potassium 4.2 mmol/L (3.5-5.1); Protein, Total 6.4 g/dL (6.4-8.2)
[2019-05-19 05:07] LABS: Absolute Lymphocytes (CBC) 2.9 K/uL (0.7-4.9); Basophils % 0.3 % (0-1.3); Hematocrit 36.3 % (36.0-45.0); Lymphocytes % 17.2 % (15.3-44.8); MPV 7.8 fL (7.6-11.3); RBC Red Blood Cell Count 3.94 M/uL (3.86-4.86)
[2019-05-19] MEDS ORDERED: NICOTINE 21 MG/PAT TD SCH (09:00)
[2019-05-19] MEDS ORDERED: CEFTRIAXONE/SWI 1gm 1 GM/10 ML SYR IVP SCH (09:00)
[2019-05-19] MEDS: FAMOTIDINE 20 MG TAB PO SCH (09:26)
[2019-05-19 11:17] VITALS: O2SAT 97
--- NOTE | 2019-05-19 11:29 | P.DS ---
Admission Date: 05/18/19 Discharge Date: 05/19/19 Disposition: [place] HOME/HOME HEALTH CARE Discharge Condition: GOOD Brief History of Present Illness: Patient with previous history of breast cancer status post chemo 20 years ago admitted well right flank pain with dysuria. Hospital Course: Patient on admission was noted on right pyelonephritis on CT imaging. urine culture shows <10,000 cfu with mixed Ellyn. She was started on levaquin antibiotics. Her fever and loin pain symptoms has been improving. She will be discharged on oral antibitocis . SHE REPEATEDLY REQUESTED ORAL PAIN MEDS and given Tylenol #3 tabs Vital Signs/Physical Exam: Temp Pulse Resp BP Pulse Ox 99.1 F 89 17 111/58 L 97 05/19/19 08:00 05/19/19 08:00 05/19/19 09:27 05/19/19 08:00 05/19/19 09:27 General: Alert, In no apparent distress, Oriented x3 HEENT: Atraumatic, Normocephalic Neck: Supple, 2+ carotid pulse no bruit Respiratory: Clear to auscultation bilaterally, Normal air movement Cardiovascular: Normal pulses, Regular rate/rhythm, Normal S1 S2 Gastrointestinal: Normal bowel sounds, Soft and benign Musculoskeletal: Tenderness (mild right CVA ) Neurological: Normal gait, Normal speech, Normal strength at 5/5 x4 extr External genitalia: No edema, No lesions Laboratory Data at Discharge: WBC 16.9 K/uL (4.3-10.9) H D 05/19/19 04:31 Hgb 12.4 g/dL (12.0-15.0) 05/19/19 04:31 Hct 36.3 % (36.0-45.0) 05/19/19 04:31 Plt Count 322 K/uL (152-406) 05/19/19 04:31 Sodium 138 mmol/L (136-145) 05/19/19 04:31 Potassium 4.2 mmol/L (3.5-5.1) 05/19/19 04:31 BUN 8 mg/dL (7-18) 05/19/19 04:31 Creatinine 0.73 mg/dL (0.55-1.3) 05/19/19 04:31 Glucose 107 mg/dL (74-106) H 05/19/19 04:31 Phosphorus 2.6 mg/dL (2.5-4.9) 05/18/19 11:20 Magnesium 2.3 mg/dL (1.8-2.4) 05/19/19 04:31 Total Bilirubin 0.2 mg/dL (0.2-1.0) 05/19/19 04:31 AST 38 U/L (15-37) H 05/19/19 04:31 ALT 45 U/L (12-78) 05/19/19 04:31 Alkaline Phosphatase 64 U/L (45-117) 05/19/19 04:31 Lipase 73 U/L (73-393) 05/18/19 11:20 Home Medications: Famotidine [Pepcid*] 20 mg PO BID #10 tab 05/19/19 Levofloxacin [Levaquin] 500 mg PO DAILY #13 tablet 05/19/19 Nicotine [Nicoderm*] 21 mg TD DAILY #14 patch.[id number] 05/19/19 New Medications: Famotidine [Pepcid*] 20 mg PO BID #10 tab Levofloxacin [Levaquin] 500 mg PO DAILY #13 tablet Nicotine [Nicoderm*] 21 mg TD DAILY #14 patch.td24 Patient Discharge Instructions: follow up with your PCP in 3-5 days Diet: Regular Activity: Ad kiersten Time spent managing pt's care (in minutes): 35
[2019-05-19 12:03] VITALS: BP 92/56; TEMP 97.9
[2019-05-19] MEDS ORDERED: Levofloxacin500mg IV 500 MG/100 ML BAG IV SCH (12:30)
== END 2019-05-19 13:20 | disposition home health service (06) | DRG 690 ==
LOC: ER 11:05 → ERHOLD 13:38 → 2ND 16:22
PROVIDERS: ADMIT Internal Medicine; ATTEND Internal Medicine
DX: N12 Tubulo-interstitial nephritis, not specified as acute or chronic (principal); E86.0 Dehydration; E87.6 Hypokalemia; F17.210 Nicotine dependence, cigarettes, uncomplicated; Z85.3 Personal history of malignant neoplasm of breast
CPT/HCPCS: 36415; 74177; 80048; 80053; 80076; 81003; 81015; 81025; 83605; 83690; 83735; 84100; 84132; 85025; 87040; 87077; 87086; 87088; 87186; 96361; 96374; 96375; 99285; J0696; J1644; J2270; J2405; J3010; J3475; J7030; J7040; Q9967

== ENCOUNTER 2020-03-12 20:16 | Emergency (ER) | payer SELFPAY ==
--- OUTSIDE RECORDS SUMMARY | 2020-03-12 20:19 | XMS REPORT | Clinical Summary ---
:1970 Author Organization [facility] Address [address] [place] [address] Care Team Providers Name Role Phone Asked, No Pcp Primary Care Provider Unavailable Allergies Active Allergy Reactions Severity Noted Date Comments Aspirin Itching 02/17/2019 Penicillins Itching 02/17/2019 Medications Medication Sig Dispensed Refills Start Date End Date Status ondansetron (ZOFRAN) Take 1 tablet (4 30 tablet 0 02/18/2019 1 4 MG tablet mg total) by mouth every 6 (six) hours as needed for nausea or vomiting for up to 30 days. Active Problems Not on file Surgical History Surgery Date Site/Laterality Comments SECTION Medical History Medical History Date Comments Hypertension UTI (urinary tract infection) Social History Tobacco Use Types Packs/Day Years Used Date Current Every Day Smoker Cigarettes 1 Smokeless Tobacco: Never Used Alcohol Use Drinks/Week oz/Week Comments Not Currently Sex Assigned at Date Recorded Not on file Last Filed Vital Signs Not on file Plan of Treatment Health Maintenance Due Date Last Done Comments CERVICAL CANCER SCREENING 1990 BREAST CANCER SCREENING 11/06/2019 COLONOSCOPY SCREENING 11/06/2019 SHINGLES VACCINES (#1) 11/06/2019 INFLUENZA VACCINE 12/22/2019 Results Not on fileafter 03/12/2019 Additional Health Concerns Infection Onset Date Last Indicated Resolved Time ESBL (C ) 02/20/2019 02/20/2019 Advance Directives For more information, please contact: [phone] Type Date Recorded Patient Utility Teller Explanati on Advance Directives, Living Will and Medical Power of Route Delivery Clerk Advance Directives, Living Will 02/18/2019 1:41 AM and Medical Power of Route Delivery Clerk
--- OUTSIDE RECORDS SUMMARY | 2020-03-12 20:20 | XMS REPORT | Clinical Summary ---
:1970 Author Organization [facility] Address [address] [place] [address] Care Team Providers Name Role Phone Unavailable Primary Care Provider Unavailable Allergies Active Allergy Reactions Severity Noted Date Comments Aspirin 12/21/2018 Stomach upset Medications No known medications Active Problems Not on file Social History Tobacco Use Types Packs/Day Years Used Date Never Assessed Sex Assigned at Date Recorded Not on file Last Filed Vital Signs Not on file Plan of Treatment Not on file Results Not on fileafter 03/12/2019
--- OUTSIDE RECORDS SUMMARY | 2020-03-12 20:20 | XMS REPORT | Continuity of Care Document ---
:[address] [facility] t Address [address] [place] [address] Care Team Providers Name Role Phone Asked, Pcp Primary Care Physician Unavailable MOOKIE BULLARD Attending Clinician Unavailable Problems This patient has no known problems. Allergies, Adverse Reactions, Alerts Allergy Allergy Status Severity Reaction(s) Onset Inactive Treating Comm ents Source Name Type Date Date Clinician Aspirin [facility] Active Itching [place] [facility] ty to 02-17 [facility] adverse 00:00: st reaction 00 s to drug Penicill [facility] Active Itching 2018-0 [place] ty to 02-17 [facility] adverse 00:00: st reaction 00 s to drug Aspirin [facility] Active 2018-[address] [facility] [address] [facility] to 12-21 [facility] Social History Social Habit Start Date Stop Date Quantity Comments Source History of tobacco Cigarette Smoker [facility] Cigarettes smoked 2019-02-18 2019-02-18 [facility] current (pack per 00:00:00 00:00:[address] day) - Reported Tobacco use and 2019-02-18 2019-02-18 Never used [facility] exposure 00:00:00 00:00:00 [facility] Alcohol intake 2019-02-18 2019-02-18 Ex-drinker [facility] 00:00:00 00:00:00 (finding) [facility] Smoking Status Start Date Stop Date Source Current every day smoker 2019-02-18 00:00:00 Emmanuelle [facility] Medications Ordered Filled Start Stop Current Ordering Indication Dosage Frequency Signature Comments Components Source Medication Medication Date Date Medication? Clinician (SIG) Name Name ondansetron 4mg Q6H Take 1 Emmanuelle ston (ZOFRAN) 4 02-18 tablet (4 [facility] MG tablet 00:00: 23:59 mg total) st 00 :00 by mouth every 6 (six) hours as needed for nausea or vomiting for up to 30 days. Procedures This patient has no known procedures. Plan of Care Planned Activity Planned Date Details Comments Source Future Scheduled 2019-12-22 INFLUENZA VACCINE [facility] 00:00:00 [code = INFLUENZA VACCINE] Future Scheduled 2019-11-06 BREAST CANCER [facility] Test 00:00:00 SCREENING [code = BREAST CANCER SCREENING] Future Scheduled 2019-11-06 COLONOSCOPY SCREENING [facility] Test 00:00:00 [code = COLONOSCOPY SCREENING] Future Scheduled 2019-11-06 SHINGLES VACCINES [facility] Test 00:00:00 (#1) [code = SHINGLES VACCINES (#1)] Future Scheduled 1990 Screening for [facility] Test 00:00:00 malignant neoplasm of cervix (procedure) [code = 869961479] Results Test Description Test Time Test Comments Results Result Comments Source SCREEN, URINE 2018-12-21 07:40:00 Test Item Value Reference Range Interpretation Comme nts TEST URINE (BEAKER) (test code = 583) Negative BASIC METABOLIC [id number] 07:30:00 Test Item Value Reference Range Interpretation Comments SODIUM (BEAKER) 138 meq/L 136-145 (test code = 381) POTASSIUM (BEAKER) 3.8 meq/L 3.5-5.1 (test code = 379) CHLORIDE (BEAKER) 109 meq/L 98-107 H (test code = 382) CO2 (BEAKER) (test 22 meq/L 22-29 code = 355) BLOOD UREA NITROGEN 12 mg/dL 7-21 (BEAKER) (test code = 354) CREATININE (BEAKER) 0.75 mg/dL 0.57-1.25 (test code = 358) GLUCOSE RANDOM 95 mg/dL 70-105 (BEAKER) (test code = 652) CALCIUM (BEAKER) 9.8 mg/dL 8.4-10.2 (test code = 697) EGFR (BEAKER) (test mL/min/1.73 INSUFFIC IENT CLINICAL code = 1092) sq m DATA TO CALCULA TE ESTIMATED GFR. CBC W/PLT COUNT & AUTO [id number] 07:20:00 Test Item Value Reference Range Interpretation Comments WHITE BLOOD CELL COUNT (BEAKER) 16.6 K/ L 3.5-10.5 H (test code = 775) RED BLOOD CELL COUNT (BEAKER) 4.86 M/ L 3.93-5.22 (test code = 761) HEMOGLOBIN (BEAKER) (test code = 15.7 GM/DL 11.2-15.7 410) HEMATOCRIT (BEAKER) (test code = 47.1 % 34.1-44.9 H 411) MEAN CORPUSCULAR VOLUME (BEAKER) 96.9 fL 79.4-94.8 H (test code = 753) MEAN CORPUSCULAR HEMOGLOBIN 32.3 pg 25.6-32.2 H (BEAKER) (test code = 751) MEAN CORPUSCULAR HEMOGLOBIN CONC 33.3 GM/DL 32.2-35.5 (BEAKER) (test code = 752) RED CELL DISTRIBUTION WIDTH 12.7 % 11.7-14.4 (BEAKER) (test code = 412) PLATELET COUNT (BEAKER) (test 285 K/CU MM 150-450 code = 756) MEAN PLATELET VOLUME (BEAKER) 10.2 fL 9.4-12.3 (test code = 754) NUCLEATED RED BLOOD CELLS 0 /100 WBC 0-0 (BEAKER) (test code = 413) NEUTROPHILS RELATIVE PERCENT 82 % (BEAKER) (test code = 429) LYMPHOCYTES RELATIVE PERCENT 10 % (BEAKER) (test code = 430) MONOCYTES RELATIVE PERCENT 7 % (BEAKER) (test code = 431) EOSINOPHILS RELATIVE PERCENT 0 % (BEAKER) (test code = 432) BASOPHILS RELATIVE PERCENT 0 % (BEAKER) (test code = 437) NEUTROPHILS ABSOLUTE COUNT 13.56 K/ L 1.56-6.13 H (BEAKER) (test code = 670) LYMPHOCYTES ABSOLUTE COUNT 1.67 K/ L 1.18-3.74 (BEAKER) (test code = 414) MONOCYTES ABSOLUTE COUNT (BEAKER) 1.16 K/ L 0.24-0.36 H (test code = 415) EOSINOPHILS ABSOLUTE COUNT 0.06 K/ L 0.04-0.36 (BEAKER) (test code = 416) BASOPHILS ABSOLUTE COUNT (BEAKER) 0.05 K/ L 0.01-0.08 (test code = 417) IMMATURE GRANULOCYTES-RELATIVE 0 % 0-1 PERCENT (BEAKER) (test code = 2801) URINALYSIS W/ REFLEX URINE [id number] 07:17:00 Test Item Value Reference Range Interpretation Comments COLOR (BEAKER) (test code = 470) Yellow CLARITY (BEAKER) (test code = 469) Cloudy SPECIFIC GRAVITY UA (BEAKER) (test 1.013 1.001-1.035 code = 468) PH UA (BEAKER) (test code = 467) 7.0 5.0-8.0 PROTEIN UA (BEAKER) (test code = 200 mg/dL Negative A 464) GLUCOSE UA (BEAKER) (test code = Negative Negative 365) KETONES UA (BEAKER) (test code = Negative Negative 371) BILIRUBIN UA (BEAKER) (test code = Negative Negative 462) BLOOD UA (BEAKER) (test code = 461) Moderate Negative A NITRITE UA (BEAKER) (test code = Positive Negative A 465) LEUKOCYTE ESTERASE UA (BEAKER) Large Negative A (test code = 466) UROBILINOGEN UA (BEAKER) (test code 0.2 mg/dL 0.2-1.0 = 463) RBC UA (BEAKER) (test code = 519) 149 /HPF WBC UA (BEAKER) (test code = 520) 1380 /HPF BACTERIA (BEAKER) (test code = 517) Many MUCUS (BEAKER) (test code = 1574) Few SQUAMOUS EPITHELIAL (BEAKER) (test 3 /HPF code = 516) SOURCE(BEAKER) (test code = 5246)
--- OUTSIDE RECORDS SUMMARY | 2020-03-12 20:20 | XMS REPORT | Continuity of Care Document ---
:1970 Author Organization [facility] Address [address] [place] [address] Care Team Providers Name Role Phone PHYSICIAN, NO Primary Care Physician Unavailable Allergies, Adverse Reactions, Alerts Allergen Type Severity Reaction Last Verified Status Updated Aspirin Allergy Unknown December 24, No Active ([id number]) 2015 Penicillins Allergy Unknown December 24, No Active ([id number]) 2015 Medications Medication Status Dose Units Route Sig Qty Days Start End Instruct ions Date Date Nitrofurantoin * Active 1 ORAL Twice A May Day for , 2019 3:22pm Omeprazole Active 1 ORAL Daily for February 11:45am Phenazopyridine Active 1 ORAL Three May Hcl Times A , for 2019 Urinary 3:22pm Discomfort Problems Active Problems Medical Problem Onset Date Status Lice infested hair Active Inactive/Resolved Problems Medical Problem Onset Date Status Right ankle injury Resolved Sprain of right knee/leg Resolved Chest pain Resolved Dysuria Resolved UTI (urinary tract infection) Resolved Abdominal pain Resolved Procedures Procedure Date Performed Status Computed tomography of abdomen March 01, 2020 completed and pelvis with contrast Relevant Diagnostic Tests and/or Laboratory Data Laboratory Results Test Date/Time Result Interpretation Reference Result Perfo rming Range Comment Site White Blood Count February 8.4 4.0-11.5 [facility] , 104 [address] [facility] [address] 9:38am Red Blood Count February 4.97 3.80-5.20 [facility] , 104 [address] [facility] [address] 9:38am Hemoglobin February 16.1 10.5-15.7 [facility], 104 [address] [facility] [address] 9:38am Hematocrit February 47.7 34.0-50.0 [facility], [address] [facility] [address] [facility] [address] 9:38am Mean Corpuscular October 96.0 86-100 [facility], [address] [facility] [address] Volume 2019 [facility] 9:38am Mean Corpuscular February 32.4 26.2-33.4 [facility], [address] [facility] [address] Hemoglobin 2019 [facility] 9:38am Mean Corpuscular February 33.8 30-34 [facility], [address] [facility] [address] Hemoglobin Concent 2019 [facility] 9:38am Red Cell February 13.2 12.0-15.5 [facility], 104 [facility] Distribution Width 2019 [facility] 9:38am Platelet Count February 338 165-450 [facility], [address] [facility] [address] 2019 [facility] 9:38am Mean Platelet February 10.0 9.4-12.6 [facility], [address] [facility] [address] Volume 2019 [facility] 9:38am Neutrophils (%) February 45.9 44.4-80.1 [facility] , [address] [facility] [address] (Auto) 2019 [facility] 9:38am Immature February 0.2 0.0-0.4 [facility], 104 Granulocyte % [address] [facility] (Auto) 9:38am Lymphocytes (%) February 40.3 10.0-50.0 [facility] , [address] [facility] [address] (Auto) 2019 [facility] 9:38am Monocytes (%) February 9.9 3.6-12.0 [facility], [facility] [address] (Auto) 2019 [facility] 9:38am Eosinophils (%) February 2.9 0.0-5.4 [facility] , [address] [facility] [address] (Auto) 2019 [facility] 9:38am Basophils (%) February 0.8 0.1-1.2 [facility], [facility] [address] (Auto) 2019 [facility] 9:38am Neutrophils # October 3.85 1.56-6.13 [facility], [address] [facility] [address] (Auto) 2019 [facility] 9:38am Absolute Immature February 0.0 0.0-0.03 [facility], [address] [facility] [address] Granulocyte (auto 2019 [place] [id number] 9:38am Lymphocytes # February 3.4 1.18-3.74 [facility], [facility] (Auto) 2019 [place] [id number] 9:38am Monocytes # (Auto) February 0.83 0.24-0.86 M [facility], 104 [address] [place] [id number] 9:38am Eosinophils # February 0.24 0.04-0.36 [facility], 104 [facility] (Auto) 2019 [place] [address] 9:38am Basophils # (Auto) February 0.07 0.01-0.08 M [facility], 104 [address] [place] [id number] 9:38am Nucleated Red February 0 0-0.2 [facility], [facility] Blood Cells % 2019 [place] [id number] 9:38am Nucleated Red February 0 0 [facility], [facility] Blood Cells # 2019 [place] [id number] 9:38am Urine Color February YELLOW [facility], 10 4 2019 [place] [address] 9:38am Urine Appearance February CLEAR CLEAR [facility], 2019 [place] [address] 9:38am Urine Glucose (UA) October NEGATIVE NEGATIVE M [facility], [address] [place] [address] 9:38am Urine Bilirubin October NEGATIVE NEGATIVE [facility] , 2019 [place] [address] 9:38am Urine Ketones February NEGATIVE NEGATIVE [facility], 2019 [place] [address] 9:38am Urine Specific October 1.016 1.003-1.03 [facility] , [address] [place] [address] [place] [address] 9:38am Urine Blood February NEGATIVE NEGATIVE [facility], 10 4 2019 [place] [id number] 9:38am Urine pH February 6.000 5-9 [facility], 2019 [place] [address] 9:38am Urine Protein February NEGATIVE NEGATIVE [facility], [facility] 2019 [place] [address] 9:38am Urine Urobilinogen February NORMAL 0.2-1.0 M [facility], [address] [place] [address] 9:38am Urine Nitrate October NEGATIVE NEGATIVE [facility], 104 2019 [facility] [address] 9:38am Urine Leukocyte February NEGATIVE NEGATIVE [facility] , ST Esterase 2019 [facility] [address] 9:38am Urine RBC February 1-5 0-5 [facility], 2019 [facility] [address] 9:38am Urine WBC February <1 0-5 [facility], 2019 [facility] [address] 9:38am Urine Epithelial October 1-5 0-5 [facility], Cells 2019 [facility] [address] 9:38am Urine Bacteria February None None [facility], 104 2019 Detected Detect [facility] [address] 9:38am Urine Casts February 2-5 None [facility], 10 4 2019 Detect [facility] 10149 9:38am Urine Culture February NO [facility], Reflexed 2019 [facility] [address] 9:38am Random Glucose February 60 74-106 [facility], 2019 [place] [id number] 9:38am Blood Urea February 9 6-20 [facility], 104 Nitrogen 2019 [facility] [address] 9:38am Serum Osmolality February 274 280-300 [facility], 2019 [facility] [address]79[address] 9:38am Creatinine February 0.7 0.50-0.90 [facility], 2019 [facility] [address] 9:38am Glomerular February > 60.00 GFR RESULTS [facility], Filtration Rate 2019 [place] [id number] Calc 9:38am REPORTED IN mL/min/1.73 m2.Normal GFR: >60mL/minMo derately decreased GFR: 30-59 mL/minSever zak decreased GFR: 15-29 mL/minKidne y Failure (or Dialysis): <15 mL/minThe calculated eGFR is not valid for patients younger than 18 years or older than 75 years. BUN/Creatinine February 12.9 12-20 [facility], 104 Ratio 2019 [place] [id number] 9:38am Sodium Level February 139 135-145 [facility], 1 04 2019 [facility] [address] 9:38am Potassium Level February 3.3 3.5-5.2 [facility] , 2019 [place] [id number] 9:38am Chloride Level February 102 98-108 [facility], [address] [facility] [address] 2019 [place] [id number] 9:38am Carbon Dioxide February 25 21-32 [facility], [address] [facility] [address] Level 2019 [place] [id number] 9:38am Anion Gap February 15.3 12-20 [facility], [address] [facility] [address] [place] [id number] 9:38am Calcium Level February 9.3 8.6-10.0 [facility], [address] [facility] [address] 2019 [place] [id number] 9:38am Total Protein February 8.3 6.6-8.7 [facility], [address] [place] [id number] 9:38am Albumin February 4.4 3.5-5.2 [facility], [address] [place] [address] 2019 [place] [id number] 9:38am Globulin February 3.9 [facility], 104 [facility] 2019 [place] [id number] 9:38am Albumin/Globulin February 1.1 >1.0 [facility], 104 [facility] Ratio 2019 [place] [address] 9:38am Total Bilirubin February 0.4 0.0-1.2 [facility] , [address] [place] [address] 2019 [place] [address] 9:38am Aspartate Amino February 68 15-32 [facility] , 104 [facility] Transf (AST/SGOT) 2019 [place] [id number] 9:38am Alanine February 71 0-33 [facility], [address] [facility] [address] Aminotransferase 2019 [place] [id number] (ALT/SGPT) 9:38am Lipase February 31 13-60 [facility], [address] [place] [address] 2019 [place] [id number] 9:38am Total Alkaline February 85 35-105 [facility], 104 [facility] Phosphatase 2019 [place] [id number] 9:38am Health Concerns Health Concerns may be documented in an alternate section. Advance Directives Advance Directive Response Recorded Date/Time Advance Directives No December 25, 2015 6:0 9pm Advance Directive on File No March 01, 2020 9:21am Directive to Physicians/Living No December 6:09pm Will Health Care Proxy No December 25, 2015 6:0 9pm Organ Donor No December 25, 2015 6:0 9pm Medical Power of Calciner Feeder No [place] [address]th, 20 16 6:09pm Chief Complaint and Reason for Visit Chief Complaint General Complaint Reason for Visit [id number] Encounters Encounter Location(s) Arrival/Admit Date Discharge/Depart Date Provider(s) Departed Carol March 01, 2020 March 01, 2020 [facility] 9:13am 11:51am Ctr Assessments No Assessments Information Available Functional Status No Functional Status information available Goals Goals may be documented in an alternate section. Immunizations No Immunization Information Available Mental Status No Mental Status Information Available Medical Equipment No Medical Equipment Information available Insurance Providers Guarantor Pao Russo Address [address] [address] Contact Info. Home Phone: Payer Policy Id Coverage Id Subscriber's Subscriber Id Effective E xpiration Name Date Date Self Pay Barb Russo Plan of Treatment FOLLOW UP PCP FOR GI REFERRAL FOR COLONOSCOPY ENDOSCOPY. Please return for any worsening pain or other symptoms.1. Thank you for coming to the emergency department today. It is a privilege to serve you and your family. 2. Please call your primary care doctor today to make a follow-up appointment. 3. Emergency room care is not a substitute for primary care. It is impossible to diagnose and treat all medical conditions in the emergency department or in a single visit. It is very important that you follow up as directed. 4. Please return to the Emergency room for any worsening or severe or worrisome symptoms. 5. If you were given a prescription, please fill it immediately and take all medications as directed. Future Tests Future scheduled test information is unavailable Pending Tests Pending diagnostic test information is unavailable Future Visits Future appointment information is unavailable Referrals to Other Providers Reason for Referral Start Provider Provider Contact Provider Address Referral Date Information PHYSICIAN, NO Future Procedures Future procedure information is unavailable Future Medications Future medication information is unavailable Patient Instructions Abdominal Pain, Adult, [id number] Social History Smoking Status Status Date of Observation Smokes tobacco daily (finding) March 01, 2020 9:21 am Observation Status Observation Response Date of Response Hx Physical Abuse No March 01, 2020 9 :21am Assigned Sex Female Vital Signs Vital Reading Result Collection Date/Time Weight 180 [lb_av] March 01, 2020 9 :21am BMI (Body Mass Index) 28.2 kg/m2 March 01, 2020 9:21am
[2020-03-12] MEDS ORDERED: dexAMETHasone 4 MG/ML VIAL ONE (20:47)
[2020-03-12] MEDS ORDERED: MORPHINE 4 MG/ML SYR ONE (20:47)
[2020-03-12] MEDS ORDERED: ONDANSETRON 4 MG/2 ML VIAL ONE (20:47)
--- NOTE | 2020-03-12 20:58 | RAD REPORT ---
EXAM DESCRIPTION: CT - Head C Spine Mpr Wo Con - 03/12/2020 8:41 pm CLINICAL HISTORY: Head and neck injury status post fall. Head and neck pain COMPARISON: None. TECHNIQUE: Computed axial tomography of the head and cervical spine was obtained. Sagittal and coronal reconstruction was performed. All CT scans are performed using dose optimization technique as appropriate and may include automated exposure control or mA/KV adjustment according to patient size. FINDINGS: An intracranial bleed is not seen. The fourth ventricle is normal caliber. The third and l ateral ventricles are moderately dilated. An extra-axial fluid collection is not noted.Fluid within t he visualized sinuses and mastoids is not seen A cervical fracture is not visualized. No dislocation is noted. Loss of the normal lordosis of the ce rvical spine may be secondary to muscle spasm or positioning. Spondylosis involves mid and distal cervical spine IMPRESSION: Moderate dilatation of the ventricles may indicate obstructive hydrocephalus in the bib on of aqueduct of [place]. Normal pressure hydrocephalus is a another consideration. If the patient h as prior imaging this would be helpful for comparison. MRI with contrast may be helpful. A cervical fracture is not visualized.
--- NOTE | 2020-03-12 21:01 | RAD REPORT ---
EXAM DESCRIPTION: RAD - Pelvis - 03/12/2020 8:54 pm CLINICAL HISTORY: Pelvic pain status post injury FINDINGS: No fracture or dislocation is seen.
--- NOTE | 2020-03-12 21:05 | RAD REPORT ---
EXAM DESCRIPTION: RAD - Lumbar Spine 3 Views - 03/12/2020 8:55 pm CLINICAL HISTORY: Back pain FINDINGS: The alignment of the lumbar spine is satisfactory. No fracture or dislocation is seen. Mild spondylosis involves the lumbar spine. Bones are osteoporotic
[2020-03-12 21:35] LABS: Absolute Lymphocytes (CBC) 3.6 K/uL (0.7-4.9); Basophils % 0.6 % (0-1.3); Hematocrit 41.3 % (36.0-45.0); Lymphocytes % 43.4 % (15.3-44.8); MPV 8.2 fL (7.6-11.3); RBC Red Blood Cell Count 4.38 M/uL (3.86-4.86)
[2020-03-12 21:39] LABS: Protime INR 0.97
[2020-03-12 22:03] LABS: ALT/SGPT 65 U/L (12-78); AST/SGOT 86 U/L (15-37); Albumin 3.6 g/dL (3.4-5.0); Alkaline Phosphatase 78 U/L (45-117); BUN Blood Urea Nitrogen 13 mg/dL (7-18); Bicarbonate 24 mmol/L (21-32); Bilirubin Direct < 0.1 mg/dL (0-0.2); Bilirubin Total 0.2 mg/dL (0.2-1.0); Glucose Level 78 mg/dL (74-106); Protein, Total 7.9 g/dL (6.4-8.2); Sodium Level 142 mmol/L (136-145)
[2020-03-12 22:09] LABS: Barbiturates NEGATIVE (NEGATIVE); Benzodiazepines NEGATIVE (NEGATIVE); Cocaine NEGATIVE (NEGATIVE); METHAMPHETAM NEGATIVE (NEGATIVE); Methadone NEGATIVE (NEGATIVE); Opiates NEGATIVE (NEGATIVE); Phencyclidine NEGATIVE (NEGATIVE); THC Cannibis NEGATIVE (NEGATIVE)
[2020-03-12 22:23] LABS: Urine Blood TRACE (NEG); Urine Glucose NEGATIVE (NEG); Urine Protein NEGATIVE (NEG); Urine Specific Gravity <1.005 (1.005-1.030); Urine pH 5.5 (5.0-7.0)
--- NOTE | 2020-03-12 23:27 | ER ---
Nurse's Notes [facility] Name: Pao Gonzales Age: 49 yrs Sex: Female : 1970 Arrival Date: 03/12/2020 Time: 20:18 Bed 8 Private MD: Diagnosis: Unspecified injury of head;Hydrocephalus, unspecified Presentation: 03/12 20:18 Chief complaint: EMS states: She reports that she was attacked by yellow jackets, she ca1 tripped over her cat and fell onto a window. She was stung once on her R upper thigh, abrasion on her R wrist. Denies LOC, denies hitting head. Coronavirus screen: Client denies travel out of the [place] in the last 14 days. At this time, the client does not indicate any symptoms associated with coronavirus-19. Ebola Screen: Patient negative for fever greater than or equal to 101.5 degrees Fahrenheit, and additional compatible Ebola Virus Disease symptoms Patient denies exposure to infectious person. Patient denies travel to an Ebola-affected area in the 21 days before illness onset. No symptoms or risks identified at this time. Initial Sepsis Screen: Does the patient meet any 2 criteria? No. Patient's initial sepsis screen is negative. Does the patient have a suspected source of infection? No. Patient's initial sepsis screen is negative. Risk Assessment: Do you want to hurt yourself or someone else? Patient reports no desire to harm self or others. Onset of symptoms was March 12, 2020. 20:18 Method Of Arrival: EMS: [facility] ca1 20:18 Acuity: YOSHI 3 bb FLOW NURSE: 20:22 LMP N/A - Post-menopause ca1 Historical: - Allergies: 20:22 Aspirin; ca1 20:22 PENICILLINS; ca1 - PMHx: 20:22 breast cancer; kidney problems; Myocardial infarction; CVA; ca1 - PSHx: 20:22 Breast biopsy; ; ca1 - Immunization history:: Adult Immunizations up to date. - Social history:: Smoking status: Patient reports the use of cigarette tobacco products, smokes one-half pack cigarettes per day. Screenin:36 Abuse screen: Denies threats or abuse. Denies injuries from another. Nutritional mg2 screening: No deficits noted. Tuberculosis screening: No symptoms or risk factors identified. Fall Risk IV access (20 points). Assessment: 20:36 General: Appears in no apparent distress. comfortable, Behavior is calm, cooperative. mg2 Neuro: Level of Consciousness is awake, alert, obeys commands, Oriented to person, place, time, situation. Cardiovascular: Capillary refill < 3 seconds Patient's skin is warm and dry. Respiratory: Airway is patent Respiratory effort is even, unlabored, Respiratory pattern is regular, symmetrical. GI: No signs and/or symptoms were reported involving the gastrointestinal system. : No signs and/or symptoms were reported regarding the genitourinary system. EENT: No signs and/or symptoms were reported regarding the EENT system. Musculoskeletal: Circulation, motion, and sensation intact. Capillary refill < 3 seconds. 20:36 Pain: Complains of pain in head. mg2 20:37 Reassessment: sent to CT via stretcher. mg2 22:04 Reassessment: Patient appears in no apparent distress at this time. Patient and/or mg2 family updated on plan of care and expected duration. Pain level reassessed. Patient is alert, oriented x 3, equal unlabored respirations, skin warm/dry/pink. 23:14 Reassessment: Patient appears in no apparent distress at this time. Patient and/or mg2 family updated on plan of care and expected duration. Pain level reassessed. Patient is alert, oriented x 3, equal unlabored respirations, skin warm/dry/pink. patient agreed to be transferred to other hospital. 03/13 00:13 Reassessment: report given to Waqar Wagner of [facility]. mg2 00:24 Reassessment: report given to EMS. patient in good condition. IV intact. mg2 Vital Signs: 03/12 20:18 BP 134 / 100; Pulse 86; Resp 15 S; Temp 98(TE); Pulse Ox 98% on R/A; Weight 77.11 kg ca1 (R); Height 5 ft. 7 in. (170.18 cm) (R); Pain 01/30; 22:03 BP 117 / 83; Pulse 81; Resp 18; Pulse Ox 97% on R/A; mg2 23:15 BP 125 / 76; Pulse 80; Resp 18; Pulse Ox 100% on R/A; mg2 03/13 00:24 BP 122 / 70; Pulse 77; Resp 18; Pulse Ox 97% on R/A; mg2 03/12 20:18 Body Mass Index 26.63 (77.11 kg, 170.18 cm) ca1 ED Course: 03/12 20:18 Patient arrived in ED. am2 20:18 Ernesto Carrera PA is PHCP. m 20:18 Wolfgang Jean-Baptiste MD is Attending Physician. m 20:21 Triage completed. ca1 20:22 Arm band placed on right wrist. ca1 20:23 Papo Mathew, RN is Primary Nurse. mg2 20:37 Patient has correct armband on for positive identification. Door closed. Warm blanket mg2 given. 20:37 No provider procedures requiring assistance completed. Inserted saline lock: 20 gauge mg2 in left antecubital area, using aseptic technique. Blood collected. by MEENA Haywood Tech. 20:41 CT Head C Spine In Process Unspecified. EDMS 20:54 Lumbar Spine (3 Views) XRAY In Process Unspecified. EDMS 20:54 Pelvis XRAY In Process Unspecified. EDMS 21:49 Straight cath inserted, using sterile technique, 16 Fr. Returned clear yellow urine. mg2 Patient tolerated well. 300 ml urine output. 22:20 Initiated transfer with Colleen at [facility]. tt3 22:38 Colleen called back with Dr. Barber to speak with RITA Ching regarding the pt case. tt3 23:26 Colleen Rangel called back to give administrative approval. The pt is going to room 2447. tt3 The accepting physician is Dr. Brand. 23:51 Spoke with Katherine at [facility]. They are transferring the pt. tt3 03/13 00:24 Patient transferred, IV remains in place. mg2 00:26 covid swab sent. mg2 Administered Medications: 03/12 21:10 Drug: Decadron - Dexamethasone 10 mg Route: IVP; Site: left antecubital; mg2 22:04 Follow up: Response: No adverse reaction; Marked relief of symptoms mg2 21:10 Drug: morphine 4 mg Route: IVP; Site: left antecubital; mg2 22:04 Follow up: Response: No adverse reaction; Marked relief of symptoms; Pain is decreased; mg2 RASS: Alert and Calm (0) 21:10 Drug: Zofran (Ondansetron) 4 mg Route: IVP; Site: left antecubital; mg2 22:04 Follow up: Response: No adverse reaction; Marked relief of symptoms mg2 Outcome: 23:27 ER care complete, transfer ordered by MD. renee 03/13 00:24 Transferred by ground EMS [place] [facility] completed. mg2 Condition: stable Instructed on the need for transfer, Demonstrated understanding of instructions. 00:26 Patient left the ED. mg2 Addendum: 03/17/2020 19:13 Addendum: COVID-19 Result: Negative result given to RN to notify pt. Notified pt of i w negative COVID 19 swab results. Pt advised that even with a negative test result they should remain in isolation until symptom free for 3 days without medication. Pt also advised to return to the ED for worsening symptoms. Signatures: Dispatcher [employer] EDMS Ernesto Carrera PA PA jmm Ballard, Brenda RN RN bb Claire Fritz RN RN iw Molly Casanova amPapo Morales RN RN mg2 Kala Samuels RN RN ca1 Clau, Ramon tt3 Corrections: (The following items were deleted from the chart) 03/12 21:54 20:18 Acuity: YOSHI 4 ca1 bb
--- NOTE | 2020-03-12 23:27 | EDPHYS ---
Physician Documentation [facility] Name: Pao Gonzales Age: 49 yrs Sex: Female : 1970 Arrival Date: 03/12/2020 Time: 20:18 Bed 8 Private MD: ED Physician Wolfgang Jean-Baptiste HPI: 03/12 20:25 This 49 yrs old Female presents to ER via EMS with complaints of head injury, jmm fall, bee sting. 20:25 Details of fall: The patient fell from an upright position. jmm 20:25 Onset: The symptoms/episode began/occurred acutely. Associated injuries: The patient jmm sustained injury to the head, neck injury. This is a 49 year old female with a history of mi, cva, that presents to the ED with complaints headache, neck pain, low back pain. Patient states she was stung by bees/hornets while in her front yard. Patient states she then fell backwards hitting the back of her bed against a boat. . FUR BLOWER: 20:22 LMP N/A - Post-menopause ca1 Historical: - Allergies: 20:22 Aspirin; ca1 20:22 PENICILLINS; ca1 - PMHx: 20:22 breast cancer; kidney problems; Myocardial infarction; CVA; ca1 - PSHx: 20:22 Breast biopsy; ; ca1 - Immunization history:: Adult Immunizations up to date. - Social history:: Smoking status: Patient reports the use of cigarette tobacco products, smokes one-half pack cigarettes per day. ROS: 20:25 Constitutional: Negative for fever, chills, and weight loss, Cardiovascular: Negative jmm for chest pain, palpitations, and edema, Respiratory: Negative for shortness of breath, cough, wheezing, and pleuritic chest pain. 20:25 MS/extremity: Positive for injury or acute deformity, pain. 20:25 Neuro: Positive for headache. 20:25 All other systems are negative. Exam: 20:25 Constitutional: This is a well developed, well nourished patient who is awake, alert, jmm and in no acute distress. 20:25 Head/Face: atraumatic. Eyes: EOMI, no conjunctival erythema appreciated ENT: Moist Mucus Membranes 20:25 Chest/axilla: Normal chest wall appearance and motion. 20:25 Head/face: Noted is 20:25 Neck: C-spine: appears grossly normal, no vertebral tenderness, no crepitus. 20:25 Cardiovascular: Rate: normal, Rhythm: regular, Pulses: no pulse deficits are appreciated. 20:25 Respiratory: the patient does not display signs of respiratory distress, Respirations: normal, Breath sounds: are clear throughout. 20:25 Abdomen/GI: Inspection: abdomen appears normal, Bowel sounds: normal, Palpation: abdomen is soft and non-tender, in all quadrants. 20:25 Musculoskeletal/extremity: ROM: intact in all extremities. 20:25 Skin: abrasions noted to the right foot. 20:25 Neuro: Orientation: is normal, Mentation: is normal, Memory: is normal, Cranial nerves: Speech is slurred, Cerebellar function: normal finger to nose testing. 20:25 Psych: Behavior/mood is pleasant, cooperative. Vital Signs: 20:18 BP 134 / 100; Pulse 86; Resp 15 S; Temp 98(TE); Pulse Ox 98% on R/A; Weight 77.11 kg ca1 (R); Height 5 ft. 7 in. (170.18 cm) (R); Pain 9/10; 22:03 BP 117 / 83; Pulse 81; Resp 18; Pulse Ox 97% on R/A; mg2 23:15 BP 125 / 76; Pulse 80; Resp 18; Pulse Ox 100% on R/A; mg2 03/13 00:24 BP 122 / 70; Pulse 77; Resp 18; Pulse Ox 97% on R/A; mg2 03/12 20:18 Body Mass Index 26.63 (77.11 kg, 170.18 cm) ca1 MDM: 03/12 20:18 Patient medically screened. [facility] 23:26 Data reviewed: vital signs, nurses notes. Counseling: I had a detailed discussion with [facility] the patient and/or guardian regarding: the historical points, exam findings, and any diagnostic results supporting the discharge/admit diagnosis, radiology results, the need to transfer to another facility. ED course: I discussed the patient with Dr. Barber and Dr. Schroeder whom accepted the patient for transfer. . 03/12 21:15 Order name: Acetaminophen; Complete Time: 22:10 [facility] 03/12 21:15 Order name: Basic Metabolic Panel; Complete Time: 22:10 [facility] 03/12 21:15 Order name: CBC with Diff; Complete Time: 21:53 [facility] 03/12 21:15 Order name: ETOH Level; Complete Time: 22:03 [facility] 03/12 21:15 Order name: Hepatic Function; Complete Time: 22:10 [facility] 03/12 21:15 Order name: PT-INR; Complete Time: 21:53 [facility] 03/12 20:24 Order name: CT Head C Spine; Complete Time: 21:00 [facility] 03/12 20:24 Order name: Lumbar Spine (3 Views) XRAY; Complete Time: 21:12 [facility] 03/12 20:24 Order name: Pelvis XRAY; Complete Time: 21:03 [facility] 03/12 21:15 Order name: Ptt, Activated; Complete Time: 21:53 [facility] 03/12 21:15 Order name: Salicylate; Complete Time: 21:53 [facility] 03/12 21:15 Order name: Urine Drug Screen; Complete Time: 22:10 [facility] 03/12 21:51 Order name: Urine Dipstick--Ancillary (enter results); Complete Time: 22:30 tt3 03/12 22:24 Order name: COVID-19 mg2 03/12 20:24 Order name: Saline Lock; Complete Time: 20:36 [facility] 03/12 21:15 Order name: EKG; Complete Time: 21:16 [facility] 03/12 21:15 Order name: EKG - Nurse/Tech; Complete Time: 21:31 [facility] 03/12 21:15 Order name: Labs collected and sent; Complete Time: 21:27 [facility] 03/12 21:15 Order name: Urine Dipstick-Ancillary (obtain specimen); Complete Time: 21:49 jm Administered Medications: 21:10 Drug: Decadron - Dexamethasone 10 mg Route: IVP; Site: left antecubital; mg2 22:04 Follow up: Response: No adverse reaction; Marked relief of symptoms mg2 21:10 Drug: morphine 4 mg Route: IVP; Site: left antecubital; mg2 22:04 Follow up: Response: No adverse reaction; Marked relief of symptoms; Pain is decreased; mg2 RASS: Alert and Calm (0) 21:10 Drug: Zofran (Ondansetron) 4 mg Route: IVP; Site: left antecubital; mg2 22:04 Follow up: Response: No adverse reaction; Marked relief of symptoms mg2 Disposition: 03/13 03:21 Co-signature as Attending Physician, Wolfgang Jean-Baptiste MD. rn Disposition: 03/12/20 23:27 Transfer ordered to [facility]. Diagnosis are Unspecified injury of head, Hydrocephalus, unspecified. - Reason for transfer: Higher level of care. - Accepting physician is Dr. Schroeder. - Condition is Stable. - Problem is new. - Symptoms are unchanged. Signatures: Dispatcher [employer] EDMS Ernesto Carrera PA PA Wolfgang Swanson MD MD rn Papo Mathew RN RN mg2 Kala Samuels RN RN ca1 Corrections: (The following items were deleted from the chart) 00:26 03/12 23:27 03/12/2020 23:27 Transfer ordered to [facility]. mg2 Diagnosis is Unspecified injury of head; Hydrocephalus, unspecified. Reason for transfer: Higher level of care. Accepting physician is Dr. Schroeder. Condition is Stable. Problem is new. Symptoms are unchanged. [facility]
[2020-03-13 00:51] VITALS: TEMP 98
[2020-03-13 00:56] VITALS: BP 122/70; O2SAT 97
--- NOTE | 2020-03-13 07:25 | EKG ---
Test Date: 2020-03-12 Test Time: 21:36:03 [employer]: MEASUREMENT RESULTS: Intervals: Rate: 80 OK: 148 QRSD: 78 QT: 392 QTc: 452 [place]: P: 53 OK: 148 QRS: 72 T: 73 INTERPRETIVE STATEMENTS: Normal sinus rhythm Normal ECG No previous ECG available for comparison Electronically Signed On 03-13-20 07:24:42 CDT by Sánchez Iverson
== END 2020-03-13 00:26 | disposition short-term general hospital (02) ==
LOC: ER 20:16
DX: G91.9 Hydrocephalus, unspecified (principal); T63.441A Toxic effect of venom of bees, accidental (unintentional), initial encounter; W19.XXXA Unspecified fall, initial encounter; Y93.89 Activity, other specified; Y92.89 Other specified places as the place of occurrence of the external cause; Z20.828 Contact with and (suspected) exposure to other viral communicable diseases; Z88.0 Allergy status to penicillin; Z88.6 Allergy status to analgesic agent; Z85.3 Personal history of malignant neoplasm of breast; Z86.73 Personal history of transient ischemic attack (TIA), and cerebral infarction without residual deficits; F17.210 Nicotine dependence, cigarettes, uncomplicated
CPT/HCPCS: 36415; 51702; 70450; 72100; 72125; 72170; 80048; 80076; 80307; 80320; 80329; 81003; 85025; 85610; 85730; 93005; 96374; 96375; 99285; J1100; J2405; U0002

== ENCOUNTER 2020-04-02 09:09 | Emergency (ER) | payer SELFPAY ==
--- NOTE | 2020-04-02 10:01 | RAD REPORT ---
EXAM DESCRIPTION: CT - Head Brain Wo Cont - 04/02/2020 9:44 am CLINICAL HISTORY: headache, dizziness Headache, drowsiness COMPARISON: Head C Spine Mpr Wo Con dated 03/12/2020 TECHNIQUE: All CT scans are performed using dose optimization technique as appropriate and may inclu de automated exposure control or mA/KV adjustment according to patient size. FINDINGS: Moderate hydrocephalus is again seen, essentially unchanged. There is evidence of a right frontal jacek hole, new since the prior study.No acute hemorrhage or midline shift. The paranasal sinuses and mastoids are clear. The calvarium is intact. IMPRESSION: Stable findings of moderate hydrocephalus since the comparative study.
--- OUTSIDE RECORDS SUMMARY | 2020-04-02 10:17 | XMS REPORT | Clinical Summary ---
:1970 Author Organization [facility] Address [address] [place] [address] Care Team Providers Name Role Phone Asked, No Pcp Primary Care Provider Unavailable Allergies Active Allergy Reactions Severity Noted Date Comments Aspirin Itching 02/17/2019 Penicillins Itching 02/17/2019 Medications No known medications Active Problems Not on file Surgical History [...] INFLUENZA VACCINE 12/22/2019 Results Not on fileafter 04/02/2019 Additional Health Concerns Infection Onset Date Last Indicated Resolved Time ESBL (C ) 02/20/2019 02/20/2019 Advance Directives For more information, please contact: [phone] Type Date Recorded 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
--- OUTSIDE RECORDS SUMMARY | 2020-04-02 10:17 | XMS REPORT | Clinical Summary ---
:1970 Author Organization [facility] Address [address] [place] [address] Care Team Providers Name Role Phone Unavailable Primary Care Provider Unavailable Allergies Active Allergy Reactions Severity Noted Date Comments Aspirin 12/21/2018 Stomach upset Penicillins 03/18/2020 Patient stated, "I am allergic to penicillins". Medications Medication Sig Dispensed Refills Start Date End Date Status HYDROcodone-acetamin Take 1 tablet by 20 tablet 0 03/19/2020 1 05/29/2019 ophen (NORCO 5-325) mouth every 6 5-325 mg per tablet (six) hours as needed for Pain for up to 10 days. Max Daily Amount: 4 tablets Active Problems Problem Noted Date Other hydrocephalus 03/13/2020 Hydrocephalus 03/13/2020 Encounters Date Type Specialty Care Team Description 03/18/2020 Anesthesia Event Socrates Jacobsen MD Osei, Melo Evans MD 03/18/2020 Surgery Tavon Estevez VENTRICULOSTOMY ,BRIGIDA Wilkinson MD VENTRICLE NEUROENDOSCOPIC STEREOTACTIC 03/18/2020 Travel 03/17/2020 Orders Only General Internal Medicine 03/13/2020 - Hospital Encounter General Internal Sunday, Other hydrocephalus (HCC); 03/19/2020 Medicine MD Hua ETOH abuse; Karena Neal Obstructive hydrocephalus (HCC) MD Marcos Shaw Elie G., MD Henderson, Laura Campbell MD after 04/02/2019 Social History Tobacco Use Types Packs/Day Years Used Date Current Every Day Smoker Cigarettes Smokeless Tobacco: Never Used Comments: 1/2 pack a day Alcohol Use Drinks/Week oz/Week Comments Yes Alcohol Habits Answer Date Recorded How often do you have a drink containing 4 or more times a w [place] 03/18/2020 alcohol? How many drinks containing alcohol do you have 3 or 4 03/18/2020 on a typical day when you are drinking? How often do you have six or more drinks on one Not asked occasion? Sex Assigned at Date Recorded Not on file COVID-19 Exposure Response Date Recorded In the last month, have you been in contact with No / Unsure 03/18/2020 10:14 PM CDT someone who was confirmed or suspected to have Coronavirus / COVID-19? Last Filed Vital Signs Vital Sign Reading Time Taken Comments Blood Pressure 123/81 03/19/2020 8:37 AM CDT Pulse 92 03/19/2020 8:37 AM CDT Temperature 36.2 C (97.1 F) 03/19/2020 8:37 AM CDT Respiratory Rate 18 03/19/2020 8:37 AM CDT Oxygen Saturation 99% 03/19/2020 8:37 AM CDT Inhaled Oxygen Concentration - - Weight - - Height - - Body Mass Index - - Plan of Treatment Health Maintenance Due Date Last Done Comments BREAST CANCER SCREENING 1970 COLON CANCER SCREENING COLONOSCOPY 1970 PNEUMOCOCCAL VACCINE 0-64 YRS (1 of 1 - PPSV23) 11/06/1975 CERVICAL CANCER SCREENING PAP ONLY (Age 21-65) 1990 LIPID PANEL 2014 INFLUENZA VACCINE (#1) 2020 Procedures Procedure Name Priority Date/Time Associated Diagnosis Comme nts CT BRAIN WITHOUT IV STAT 03/18/2020 7:57 Resu lts for this CONTRAST PM CDT procedure are i n the results section. VENTRICULOSTOMY,THIRD 03/18/2020 4:15 Hydrocephalus i n VENTRICLE PM CDT adult (HCC) NEUROENDOSCOPIC STEREOTACTIC Case Notes 2HRSCAROLLE APPROVED TO ADD IN RM 14/fr Special Needs (SUPINE POSITION, RIGID ENDO SCOPE, FLORES CLAMP, SHOULDER ROLL) SCREEN, URINE ONESIMO 03/18/2020 2:37 PM CDT Results for this procedure are i n the results section . ABORH, MANUAL Routine 03/17/2020 4:18 PM CDT Res ults for this procedure are i n the results section . TYPE AND SCREEN, AUTOMATED ONESIMO 03/17/2020 2:50 PM CDT Results for this procedure are i n the results section . PT/APTT ONESIMO 03/17/2020 2:50 PM CDT Resu lts for this procedure are i n the results section . ECG 12-LEAD Routine 03/17/2020 3:47 AM CDT Procedure Note - Interface, External Ris In - 03/17/2020 8:40 AM CDT Ventricular Rate 67 BPM Atrial Rate 67 BPM P-R Interval 156 ms QRS Duration 84 ms Q-T Interval 424 ms QTC Calculation(Bazett) 448 ms P [place] 56 degrees R [place] 76 degrees T [place] 82 degrees Normal sinus rhythm Normal ECG No previous ECGs available ECG 12-LEAD Routine 03/17/2020 3:47 AM CDT Resu lts for this procedure are i n the results section . XR CHEST 1 VIEW Routine 03/15/2020 12:58 PM CDT R esults for this PORTABLE/BEDSIDE procedure a re in the results section . MR BRAIN WITH & WITHOUT IV Routine 03/14/2020 9:57 PM CDT Results for this CONTRAST procedure are i n the results section . CBC W/PLT COUNT & AUTO Routine 03/14/2020 5:35 AM CDT Results for this DIFFERENTIAL procedure are i n the results section . HEPATIC FUNCTION PANEL Routine 03/14/2020 5:35 AM CDT Results for this procedure are i n the results section . BASIC METABOLIC PANEL (7) Routine 03/14/2020 5:35 AM CDT Results for this procedure are i n the results section . CBC W/PLT COUNT & AUTO Routine 03/14/2020 5:35 AM CDT Results for this DIFFERENTIAL procedure are i n the results section . MR BRAIN WITHOUT IV CONTRAST Routine 03/13/2020 4:32 PM CDT Results for this procedure are i n the results section . 2D ECHO W/ DOPPLER Routine 03/13/2020 11:57 AM CDT Results for this (CW/PW/COLOR) procedure are in the results section . SCREEN, URINE STAT 03/13/2020 6:26 AM CDT Results for this procedure are i n the results section . URINALYSIS W/ MICROSCOPIC Routine 03/13/2020 6:26 AM CDT Results for this procedure are i n the results section . CBC W/PLT COUNT & AUTO Routine 03/13/2020 5:32 AM CDT Results for this DIFFERENTIAL procedure are i n the results section . TSH/FREE T4 IF INDICATED Routine 03/13/2020 5:32 AM CDT Results for this procedure are i n the results section . MAGNESIUM Routine 03/13/2020 5:32 AM CDT Resu lts for this procedure are i n the results section . CBC W/PLT COUNT & AUTO Routine 03/13/2020 5:32 AM CDT Results for this DIFFERENTIAL procedure are i n the results section . COMPREHENSIVE METABOLIC Routine 03/13/2020 5:32 AM CDT Results for this PANEL procedure are i n the results section . SARS-COV2/RT-PCR (SLHS & REF Routine 03/13/2020 5:27 AM CDT Results for this LABS) procedure are i n the results section . after 04/02/[address] brain without IV contrast (03/18/2020 7:57 PM CDT) Specimen Narrative Performed At FINAL REPORT [facility] RIS CT, BRAIN, WITHOUT CONTRAST INDICATION: Hydrocephalus TECHNIQUE: Noncontrast axial imaging was obtained from the vertex to the skull base. Axial images were recons tructed using a bone algorithm. DOSE REDUCTION: Dose modulation, iterati ve reconstruction, and/or weight-based adjustment of the mA/kV was utilized to reduce the radiation dose to as low as reasonably a chievable. COMPARISON: MRI 03/14/2020 FINDINGS: Intracranial: There is trace pneumocepha rebekah underlying a right frontal jacek hole, with tract of a remov ed right frontal approach ventriculostomy catheter. Allowing for d ifferences in modality, ventricular caliber is unchanged. No intracranial hemorrhage or abnormal e xtra-axial collection. No evidence of acute territorial infarct. N o mass effect. Osseous structures: Right frontal jacek h ole with overlying soft tissue air and swelling. No fracture. No suspicious lesion. Paranasal sinuses and mastoid air cells: No evidence of sinusitis. Mastoids are clear. Orbital contents: Globes are intact. IMPRESSION: Interval placement and subsequent remova l of a right frontal approach ventriculostomy catheter. Ventricular ca liber is unchanged. There is trace pneumocephalus. Signed: Mindy Bowling MD Report Verified Date/Time: 03/18/2020 20:08:27 Procedure Note Interface, External Ris In - 03/18/2020 8:[address] FINAL REPORT CT, BRAIN, WITHOUT CONTRAST INDICATION: Hydrocephalus TECHNIQUE: Noncontrast axial imaging was obtained from the vertex to the skull base. Axial images were recons tructed using a bone algorithm. DOSE REDUCTION: Dose modulation, iterati ve reconstruction, and/or weight-based adjustment of the mA/kV was utilized to reduce the radiation dose to as low as reasonably a chievable. COMPARISON: MRI 03/14/2020 FINDINGS: Intracranial: There is trace pneumocepha rebekah underlying a right frontal jacek hole, with tract of a remov ed right frontal approach ventriculostomy catheter. Allowing for d ifferences in modality, ventricular caliber is unchanged. No intracranial hemorrhage or abnormal e xtra-axial collection. No evidence of acute territorial infarct. N o mass effect. Osseous structures: Right frontal jacek h ole with overlying soft tissue air and swelling. No fracture. No suspicious lesion. Paranasal sinuses and mastoid air cells: No evidence of sinusitis. Mastoids are clear. Orbital contents: Globes are intact. IMPRESSION: Interval placement and subsequent remova l of a right frontal approach ventriculostomy catheter. Ventricular ca liber is unchanged. There is trace pneumocephalus. Signed: Mindy Bowling MD Report Verified Date/Time: 03/18/2020 2 0:08:27 Performing Organization Address [facility] Phone Number RIS Screen, urine (03/18/2020 2:37 PM CDT)Only the most recent of2 resultswithin the time period is included. Pathologist Sig nature Preg Test, Ur Negative [facility] Specimen Urine Performing Organization Address [facility] Phone Number [facility] [address] [place] [phone] CENTER ABORH, manual (03/17/2020 4:18 PM CDT) Pathologist Sig nature ABO Grouping O [facility] Rh Factor NEG [facility] Specimen Blood Performing Organization Address [facility] Phone Number [address] [address] Type and screen, automated (03/17/2020 2:50 PM CDT) Pathologist Sig nature ABO/RH AUTOMATED O NEGATIVE [facility] Ab Scrn NEGATIVE [facility] Specimen Blood Performing Organization Address [facility] Phone Number [facility] [address] [place] [phone] PT/aPTT (03/17/2020 2:50 PM CDT) Pathologist Sig nature Protime 13.4 11.9 - 14.2 seconds [facility] INR 1.05 <=5.90 [facility] PTT 25.9 22.5 - 36.0 seconds [facility] Specimen Blood Narrative Performed At Effective 10/18/2018: PT Reference Range [facility] Change New: 11.9-14.2 Previous: 11.7-14.7 RECOMMENDED COUMADIN/WARFARIN INR THERAPY RANGES STANDARD DOSE: 2.0-3.0 Includes: PROPHYLAXIS for venous thrombosis, systemic embolization; TREATMENT for venous thrombosis and/or pulmonary embolus. HIGH RISK: Target INR is 2.5-3.5 for patients wiht mechanical heart valves. Performing Organization Address City/[facility] Phone Number [address] [address] [place] ECG 12 lead (03/17/2020 3:47 AM CDT) Specimen Narrative Performed At This result has an attachment that is no t available. Ventricular Rate 67 BPM GE MUSE Atrial Rate 67 BPM P-R Interval 156 ms QRS Duration 84 ms Q-T Interval 424 ms QTC Calculation(Bazett) 448 ms P [place] 56 degrees R [place] 76 degrees T [place] 82 degrees Normal sinus rhythm Normal ECG No previous ECGs available Confirmed by MD LISSETH, COBY ([id number]) on 03/17/2020 2:16:45 PM Procedure Note Interface, External Ris In - 03/17/2020 2:16 PM CDT Ventricular Rate 67 BPM Atrial Rate 67 BPM P-R Interval 156 ms QRS Duration 84 ms Q-T Interval 424 ms QTC Calculation(Bazett) 448 ms P [place] 56 degrees R [place] 76 degrees T [place] 82 degrees Normal sinus rhythm Normal ECG No previous ECGs available Confirmed by MD LISSETH, COBY ([id number]) on 03/17/2020 2:16:45 PM Performing Organization Address City/State/Zipcode Phone Number GE MUSE XR chest 1 view portable / bedside (03/15/2020 12:58 PM CDT) Specimen Narrative Performed At FINAL REPORT [facility] RIS TECHNIQUE: Frontal view of the chest. INDICATION: 49-year-old woman for preope rative evaluation. COMPARISON: None. FINDINGS: LINES/TUBES: None. LUNGS: Lungs are well inflated. Mild cur vilinear opacities in both lung bases. PLEURA: No pneumothorax or significant p leural effusion. HEART AND MEDIASTINUM: Cardiomediastinal silhouette is within normal limits. Atherosclerotic calcifications i n the thoracic aorta. BONES AND SOFT TISSUES: Unremarkable. IMPRESSION: No acute cardiopulmonary abnormalities. Mild curvilinear opacities in both lung bases, likely atelectasis. Signed: Antonella Yañez MD Report Verified Date/Time: 03/15/2020 13:48:00 Reading Location: [facility] C013 CT Body R eading Room Procedure Note Interface, External Ris In - 03/15/2020 1:50 PM CDT FINAL REPORT TECHNIQUE: Frontal view of the chest. INDICATION: 49-year-old woman for preope rative evaluation. COMPARISON: None. FINDINGS: LINES/TUBES: None. LUNGS: Lungs are well inflated. Mild cur vilinear opacities in both lung bases. PLEURA: No pneumothorax or significant p leural effusion. HEART AND MEDIASTINUM: Cardiomediastinal silhouette is within normal limits. Atherosclerotic calcifications i n the thoracic aorta. BONES AND SOFT TISSUES: Unremarkable. IMPRESSION: No acute cardiopulmonary abnormalities. Mild curvilinear opacities in both lung bases, likely atelectasis. Signed: Antonella Yañez MD Report Verified Date/Time: 03/15/2020 1 3:48:00 Reading Location: [facility] C013Y CT Body R eading Room Performing Organization Address City/State/Zipcode Phone Number [facility] MR brain without & with IV contrast (03/14/2020 9:57 PM CDT) Specimen Narrative Performed At FINAL REPORT [facility] MR, BRAIN, WITH \\T\\ WITHOUT CONTRAST INDICATION: Hydrocephalus Needs to include cine study to assess CS F flow through the aqueduct Technique: MRI of the brain utilizing ax ial T1, T2, FLAIR, GRE, DWI, sagittal T1; and postgadolinium axial, s agittal, and coronal T1-weighted images. COMPARISON: March 13, 2020 FINDINGS: Ventricular size is unchanged with the t hird ventricle measuring up to 1.7 cm in transverse dimension. Minim al T2/FLAIR hyperintense signal surrounding the lateral ventricle s concerning for mild transependymal flow. There is disproport ionate dilatation of the lateral and third ventricles with thinni ng of the corpus callosum and flattening of the fornices. Fourth ventr icle appears relatively decompressed. Overall, findings are conc erning for aqueduct stenosis. Brain parenchyma is otherwise normal in morphology. Midline structures are normally developed. No re stricted diffusion to suggest recent ischemic insult. No abnormal susc eptibility. No hydrocephalus. Orbits are within normal limits. No obstructive paranasal sinus disease. Additional findings: None. IMPRESSION: Ventricular size is unchanged with the t hird ventricle measuring up to 1.7 cm in transverse dimension. Minim al T2/FLAIR hyperintense signal surrounding the lateral ventricle s concerning for mild transependymal flow. There is disproport ionate dilatation of the lateral and third ventricles with thinni ng of the corpus callosum and flattening of the fornices. Fourth ventr icle appears relatively decompressed. Overall, findings are conc erning for aqueduct stenosis. Unfortunately, due to technical difficul ties (scanner software error), ventricular flow study was not p erformed. This will be attempted again Tuesday03/17/2020 follow ing consultation with vendor group sales representative. If phase contrast images are added to this accession, this report may be addended. Signed: Mee Montemayor MD Report Verified Date/Time: 03/16/2020 09:18:26 Reading Location: [address] Procedure Note Interface, External Ris In - 03/16/2020 9:20 AM CDT FINAL REPORT MR, BRAIN, WITH \\T\\ WITHOUT CONTRAST INDICATION: Hydrocephalus Needs to include cine study to assess CS F flow through the aqueduct Technique: MRI of the brain utilizing ax ial T1, T2, FLAIR, GRE, DWI, sagittal T1; and postgadolinium axial, s agittal, and coronal T1-weighted images. COMPARISON: March 13, 2020 FINDINGS: Ventricular size is unchanged with the t hird ventricle measuring up to 1.7 cm in transverse dimension. Minim al T2/FLAIR hyperintense signal surrounding the lateral ventricle s concerning for mild transependymal flow. There is disproport ionate dilatation of the lateral and third ventricles with thinni ng of the corpus callosum and flattening of the fornices. Fourth ventr icle appears relatively decompressed. Overall, findings are conc erning for aqueduct stenosis. Brain parenchyma is otherwise normal in morphology. Midline structures are normally developed. No re stricted diffusion to suggest recent ischemic insult. No abnormal susc eptibility. No hydrocephalus. Orbits are within normal limits. No obstructive paranasal sinus disease. Additional findings: None. IMPRESSION: Ventricular size is unchanged with the t hird ventricle measuring up to 1.7 cm in transverse dimension. Minim al T2/FLAIR hyperintense signal surrounding the lateral ventricle s concerning for mild transependymal flow. There is disproport ionate dilatation of the lateral and third ventricles with thinni ng of the corpus callosum and flattening of the fornices. Fourth ventr icle appears relatively decompressed. Overall, findings are conc erning for aqueduct stenosis. Unfortunately, due to technical difficul ties (scanner software error), ventricular flow study was not p erformed. This will be attempted again Tuesday03/17/2020 follow ing consultation with vendor group sales representative. If phase contrast images are added to this accession, this report may be addended. Signed: Mee Montemayor MD Report Verified Date/Time: 03/16/2020 0 9:18:26 Reading Location: [facility] C013V [facility] Performing Organization Address City/State/Zipcode Phone Number [facility] CBC with platelet count + automated diff (03/14/2020 5:35 AM CDT)Only the most recent of2 resultswithin the time period is included. Pathologist Sig nature WBC 9.5 3.5 - 10.5 [facility] RBC 4.36 3.93 - 5.22 [facility] M/L [facility] Hemoglobin 14.0 11.2 - 15.7 [facility] GM/DL [facility] Hematocrit 42.0 34.1 - 44.9 % [facility] MCV 96.3 (H) 79.4 - 94.8 fL [facility] MCH 32.1 25.6 - 32.2 pg [facility] MCHC 33.3 32.2 - 35.5 [facility] RDW 13.6 11.7 - 14.4 % [facility] Platelets 311 150 - 450 K/CU [facility] MPV 10.0 9.4 - 12.3 fL [facility] nRBC 0 0 - 0 /100 WBC [facility] % Neutros 45 % [facility] % Lymphs 46 % [facility] % Monos 8 % [facility] % Eos 1 % [facility] % Baso 1 % [facility] # Neutros 4.24 1.56 - 6.13 [facility] # Lymphs 4.39 (H) 1.18 - 3.74 [facility] # Monos 0.73 (H) 0.24 - 0.36 [facility] # Eos 0.08 0.04 - 0.36 [facility] # Baso 0.05 0.01 - 0.08 [facility] Immature 0 0 - 1 % [facility] Granulocytes-Relative [facility] Specimen Blood Performing Organization Address City/State/Zipcode Phone Number [facility] [address] [place] [phone] [place] Hepatic function panel (03/14/2020 5:35 AM CDT) Pathologist Sig nature Protein, Total 7.3 6.0 - 8.3 gm/dL [facility] Albumin 3.8 3.5 - 5.0 g/dL [facility] Total Bilirubin 0.4 0.2 - 1.2 mg/dL [facility] Bilirubin, Direct 0.2 0.1 - 0.5 mg/dL [facility] Alkaline Phosphatase 65 40 - 150 U/L [facility] AST 49 (H) 5 - 34 U/L [facility] ALT 43 6 - 55 U/L [facility] Specimen Blood Narrative Performed At Tie Presser ID - [facility] Performing Organization Address City/State/Zipcode Phone Number [address] [address] [place] Basic Metabolic Panel (03/14/2020 5:35 AM CDT) Sodium 140 136 - 145 meq/L [facility] Potassium 3.6 3.5 - 5.1 meq/L [facility] Chloride 107 98 - 107 meq/L [facility] CO2 24 22 - 29 meq/L [facility] BUN 19 7 - 21 mg/dL [facility] Creatinine 0.83 0.57 - 1.25 [facility] mg/dL [facility] Glucose 89 70 - 105 mg/dL [facility] Calcium 8.9 8.4 - 10.2 [facility] [address] ENGLISH mg/dL [facility] EGFR 73Comment: ESTIMATED mL/min/1.73 sq [facility] RAYOS GFR IS NOT m [facility] CREATININE CLEARANCE IN PREDICTING GLOMERULAR FILTRATION RATE. ESTIMATED GFR IS NOT APPLICABLE FOR DIALYSIS PATIENTS. Specimen Blood Narrative Performed At Tie Presser ID - TEN [facility] Performing Organization Address City/State/Zipcode Phone Number [facility] [address] [place] [address] CENTER MR brain without IV contrast (03/13/2020 4:32 PM CDT) Specimen Narrative Performed At FINAL REPORT R[facility] MR, BRAIN, WITHOUT CONTRAST INDICATION: Hydrocephalus Needs to include cine study to assess CS F flow through the aqueduct TECHNIQUE: Multiplanar, multisequence MR imaging of the brain without intravenous contrast. COMPARISON: None FINDINGS: Intracranial: Exam is degraded by motion . There is marked ventriculomegaly disproportionate to sul ci, with suggestion of sulcal crowding at the apex. The third ventricl e measures 1.7 cm in maximum transverse diameter. There is mild confl uent periventricular T2 hyperintensity suggestive of transependy mal flow. No acute intracranial hemorrhage. No res tricted diffusion to suggest acute infarct. No mass effect. Visualize d intracranial flow voids are of normal course and caliber. Scattered foci of T2 prolongation within the periventricular and subcortical white matter are a nonspecif ic finding commonly attributed to chronic small vessel ische serenity disease. Sinuses: No evidence of sinusitis. Masto ids are clear. Orbits: Globes are intact. Calvarium \\T\\ scalp: Unremarkable. IMPRESSION: 1.CSF flow studies were not possible due to patient motion. 2.Marked ventriculomegaly disproportiona te to sulci, and mild transependymal edema. Signed: Mindy Bowling MD Report Verified Date/Time: 03/13/2020 18:03:00 Procedure Note Interface, External Ris In - 03/13/2020 6:05 PM CDT FINAL REPORT MR, BRAIN, WITHOUT CONTRAST INDICATION: Hydrocephalus Needs to include cine study to assess CS F flow through the aqueduct TECHNIQUE: Multiplanar, multisequence MR imaging of the brain without intravenous contrast. COMPARISON: None FINDINGS: Intracranial: Exam is degraded by motion . There is marked ventriculomegaly disproportionate to sul ci, with suggestion of sulcal crowding at the apex. The third ventricl e measures 1.7 cm in maximum transverse diameter. There is mild confl uent periventricular T2 hyperintensity suggestive of transependy mal flow. No acute intracranial hemorrhage. No res tricted diffusion to suggest acute infarct. No mass effect. Visualize d intracranial flow voids are of normal course and caliber. Scattered foci of T2 prolongation within the periventricular and subcortical white matter are a nonspecif ic finding commonly attributed to chronic small vessel ische serenity disease. Sinuses: No evidence of sinusitis. Masto ids are clear. Orbits: Globes are intact. Calvarium \\T\\ scalp: Unremarkable. IMPRESSION: 1.CSF flow studies were not possible due to patient motion. 2.Marked ventriculomegaly disproportiona te to sulci, and mild transependymal edema. Signed: Mindy Bowling MD Report Verified Date/Time: 03/13/2020 1 8:03:00 Performing Organization Address City/State/Zipcode Phone Number [employer] 2D Echo W/Doppler(CW/PW/Color) (03/13/2020 11:57 AM CDT) Pathologist Sig nature Ejection Fraction [facility] Specimen Narrative Performed At Transthoracic Echocardiography Report (T TE) [facility] Demographics Patient Name PAO RUSSO Date of Study 03/13/2020 FELIPE Gender Female Visit Number [id number] Race Unknown Room Number 2447 Number Date of 1970 Referring Physician LAURA HERRERA Age 49 year(s) [employer] Juany Parker DCS Interpreting Cyrus charlton Physician Fellow Cyrus Barrett MD Procedure Type of Study TTE procedure:2DECHO W DOPPLER(CW/PW/COLOR) (Routine) Indications:Unexplained Pre-syncope/Sync ope. Clinical History HTN;RENAL DISEASE. Height: 67 inches Weight: 72.57 kg (160 lbs) BSA: 1.84 m^2 BMI: 25.06 kg/m^2 HR: 75 bpm BP: 126/75 mmHg Summary Normal left ventricular chamber size. Normal overall left ventricular systolic function (55-60% qualitatively). No apparent segmental wall motion abnormalities. Normal diastolic function. Estimated peak systolic PA pressure is 20-25 mmHg + RAP. Signature Findings Left Ventricle Normal left ventricular chamber size. Normal wall thickness. Normal overall left ventricular systolic function (55-60% qualitatively). No apparent segmental wall motion abnormalities. Normal diastolic function. Left Atrium LA size is normal (16-34 ml/m2) . Right Ventricle The right ventricular chamber size and systolic function are within normal limits. Right Atrium RA size is mildly dilated. Aortic Valve Normal AoV structure and function. Trileaflet valv e. Mitral Valve Normal MV structure and function. Tricuspid Valve A trace of tricuspid regurgitation. Estimated peak systolic PA pressure is 20-25 mmHg + RAP. Pulmonic Valve Normal PV structure appears normal by available view s. Pericardium No pericardial effusion is visualized. IVC/SVC/PA/PV/Pleural The estimated RA pressure by IVC dynamics 5-10mmHg . Chambers/Structures Left Atrium LA Volume: 33.04 ml LA Area: 13.36 cm^2 LA Vol. Index: 18 ml/m^2 Left Ventricle LVIDd: 4.67 cm LVEDV:100.6 m l LV Septum Diastolic: 1.09 cm LV PW Diastolic: 0.9 cm LVOT Diameter: 2.23 cm Right Ventricle RVOT VTI: 13.6 cm Doppler/Quantitative Measurements Mitral Valve MV Peak E-Wave: 0.76 m/s MV Peak A-Wave: 0.65 m/s E/A Ratio: 1.17 Peak Gradient: 2.29 mmHg Deceleration Time: 250.9 msec MV Yvon. Peak: Tissue Doppler E' Septal Velocity: 0.1 m/s E' Lateral Velocity: 0.14 m/s Aortic Valve Peak Velocity: 1.1 m/s Mean Velocity: 0.78 m/s Peak Gradient: 4.86 mmHg Mean Gradient: 2.74 mmHg AV Area (continuity): 2.46 cm^2 AV VTI: 29.32 cm AV DVI: 0.63 LVOT Peak Velocity: 0.76 m/s Peak Gradient: 2.34 mmHg Mean Velocity: 0.52 m/s Mean Gradient: 1.26 mmHg LVOT Diameter: 2.23 cm LVOT VTI: 18.51 cm LVOT Area: 3.91 cm^2 LVOT SV:72.26 ml LVOT CO: 5.42 l/min LVOT CI: 2.95 l/min/m^2 Procedure Note Interface, External Ris In - 03/13/2020 5:29 PM CDT Transthoracic Echocardiography Report (TTE) Demographics Patient Name PAO RUSSO Date of Study 03/13/2020 [place] Female Visit Number [id number] Race Unknown Room Number 2447 Number Date of 1970 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 Clinical History HTN;RENAL DISEASE. Height: 67 inches Weight: 72.57 kg (160 lbs) BSA: 1.84 m^2 BMI: 25.06 kg/m^2 HR: 75 bpm BP: 126/75 mmHg Summary Normal left ventricular chamber size. N ormal overall left ventricular systolic function (55-60% qualitatively ). No apparent segmental wall motion abnormalities. Normal diastolic function. Estimated peak systolic PA pressure is 20-25 mmHg + RAP. Signature Findings Left Ventricle Normal left vent ricular chamber size. Normal wall thickness. Rebeca l overall left ventricular systolic function (55-60% qualitatively). No apparent segmental wall m otion abnormalities. Normal diastolic functi on. Left Atrium LA size is rebeca l (16-34 ml/m2) . Right Ventricle The right ventri cular chamber size and systolic function are wit hin normal limits. Right Atrium RA size is mildl y dilated. Aortic Valve Normal AoV struc ture and function. Trileaflet valve. Mitral Valve Normal MV struct ure and function. Tricuspid Valve A trace of tricu spid regurgitation. Estimated peak s ystolic PA pressure is 20-25 mmHg + RAP. Pulmonic Valve Normal PV struct ure appears normal by available views. Pericardium No pericardial e ffusion is visualized. IVC/SVC/PA/PV/Pleural The estimated RA pressure by IVC dynamics 5-10mmHg . Chambers/Structures Left Atrium LA Volume: 33.04 ml LA Area: 13.36 cm^2 LA Vol. Index: 18 ml/m^2 Left Ventricle LVIDd: 4.67 cm LVEDV:100.6 ml LV Septum Diastolic: 1.09 cm LV PW Diastolic: 0.9 cm LVOT Diameter: 2.23 cm Right Ventricle RVOT VTI: 13.6 cm Doppler/Quantitative Measurements Mitral Valve MV Peak E-Wave: 0.76 m/s M V Peak A-Wave: 0.65 m/s E /A Ratio: 1.17 P eak Gradient: 2.29 mmHg D eceleration Time: 250.9 msec MV Yvon. Peak: Tissue Doppler E' Septal Velocity: 0.1 m/s E' Lateral Velocity: 0.14 m/s Aortic Valve Peak Velocity: 1.1 m/s Mean Velocity: 0.78 m/s Peak Gradient: 4.86 mmHg Mean Gradient: 2.74 mmHg AV Area (continuity): 2.46 cm^2 AV VTI: 29.32 cm AV DVI: 0.63 LVOT Peak Velocity: 0.76 m/s Pea k Gradient: 2.34 mmHg Mean Velocity: 0.52 m/s Kizzy n Gradient: 1.26 mmHg LVOT Diameter: 2.23 cm LVO T VTI: 18.51 cm LVOT Area: 3.91 cm^2 LVO T SV:72.26 ml LVOT CO: 5.42 l/min LVO T CI: 2.95 l/min/m^2 Performing Organization Address City/State/Zipcode Phone Number [facility] Urinalysis w/Microscopic (03/13/2020 6:26 AM CDT) Color, UA Yellow [facility] Clarity, UA Hazy [facility] Specific [place], 1.021 1.001 - 1.035 [facility] pH, UA 7.0 5.0 - 8.0 [facility] Protein, UA 20 mg/dL (A) Negative [facility] Glucose, UA Negative Negative [facility] Ketones, UA 40 mg/dL (A) Negative [facility] Bilirubin, UA Negative Negative [facility] Blood, UA Negative Negative [facility] Nitrite, UA Positive (A) Negative [facility] Leukocytes, UA Moderate (A) Negative [facility] Urobilinogen, UA 0.2 0.2 - 1.0 mg/dL [facility] RBC, UA 2 /HPF [facility] WBC, UA 46 /HPF [facility] Bacteria, UA Few [facility] Squam Epithel, UA 1 /HPF [facility] Specimen Source [facility] Specimen Urine Narrative Performed At Tie Presser ID - [auto] [facility] Tie Presser ID - tech Performing Organization Address [facility] Phone Number [address] [address] CENTER TSH/Free T4 If Indicated (03/13/2020 5:32 AM CDT) Pathologist Sig nature TSH 0.363 0.350 - 4.940 uIU/mL [facility] Specimen Blood Narrative Performed At Tie Presser ID - AAGRETCHENID [facility] Performing Organization Address [facility] Phone Number [address] [address] CENTER Magnesium (03/13/2020 5:32 AM CDT) Pathologist Sig nature Magnesium 2.0 1.6 - 2.6 mg/dL [facility] Specimen Blood Narrative Performed At Tie Presser ID - AAHAMID [facility] Performing Organization Address [facility] Phone Number [address] [address] [place] Comprehensive metabolic panel (03/13/2020 5:32 AM CDT) Protein, Total 7.7 6.0 - 8.3 [facility] gm/dL [facility] Albumin 4.0 3.5 - 5.0 [facility] g/dL [facility] Alkaline 73 40 - 150 U/L [facility] Phosphatase [facility] Total Bilirubin 0.4 0.2 - 1.2 [facility] mg/dL [facility] Sodium 136 136 - 145 [facility] meq/L [facility] Potassium 3.9 3.5 - 5.1 [facility] meq/L [facility] Chloride 107 98 - 107 [facility] meq/L [facility] CO2 21 (L) 22 - 29 meq/L [facility] BUN 14 7 - 21 mg/dL [facility] Creatinine 0.78 0.57 - 1.25 [facility] mg/dL [facility] Glucose 115 (H) 70 - 105 [facility] mg/dL [facility] Calcium 8.8 8.4 - 10.2 [facility] mg/dL [facility] AST 71 (H) 5 - 34 U/L [facility] ALT 49 6 - 55 U/L [facility] EGFR 78Comment: mL/min/1.73 [facility] ESTIMATED GFR IS sq [facility] NOT ACCURATE MEDICAL CENTER CREATININE CLEARANCE IN PREDICTING GLOMERULAR FILTRATION RATE. ESTIMATED GFR IS NOT APPLICABLE FOR DIALYSIS PATIENTS. Specimen Blood Narrative Performed At Tie Presser ID - AAHAMID [facility] Performing Organization Address City/State/Zipcode Phone Number [facility] [address] [place] [address] CENTER SARS-CoV2/RT-PCR (Asymptomatic ONLY) (03/13/2020 5:27 AM CDT) SARS-COV2/RT-PCR Negative Not Detected, [facility] Negative, See [facility] external report CENTER for linked test SARS-COV-2 [facility] PERFORMING LAB [facility] Specimen Other - Nasopharyngeal wall structure (b millie structure) Narrative Performed At Negative result for this test determines that [facility] SARS-CoV-2 RNA was not present in the specimen above the Limit of Detection (LOD). However, Negative results do not preclude SARS-CoV-2 infection and should not be used as the sole basis for treatment or patient management decisions. Negative results must be combined with clinical observations, patient history, and epidemiological information. A false negative result may occur if a specimen is improperly collected, transported or handled. A false negative result should be considered if patient's recent exposures or clinical presentation indicate that COVID-19 (SARS-CoV-2) is likely and diagnostic tests for other causes of illness are negative. Re-testing should be considered in cases of suspected false negatives. The limit of detection for this assay is 800 copies/mL. This SARS CoV-2 test is a real-time RT-PCR test intended for the qualitative detection of nucleic acid from SARS-CoV-2 in a nasopharyngeal swab specimen collected from individuals suspected of COVID-19 by their healthcare provider. This test has not been Food and Drug Administration (FDA) cleared or approved. This is a modified version of an approved Emergency Use Authorization (EUA) and is in the process of review by the FDA. Once authorized by the FDA, the issued EUA will be effective until the declaration that circumstances exist justifying the authorization of the emergency use of in vitro diagnostic tests for detection and/or diagnosis of COVID-19 is terminated under Section 564(b)(2) of the Act or the EUA is revoked under Section 564(g) of the Act. Fact Sheet for Healthcare Providers: https://www.[employer]/sites/default/files/pro duct/documents/Fact_Sheet_HC_Providers_Lyra_SA RS-CoV-2.pdf Fact Sheet for Healthcare Patients: https://www.[employer]/sites/default/files/pro duct/documents/Fact_Sheet_Patients_Lyra_SARS-C oV-2.pdf Performing Laboratory: [place] [address] Performing Organization Address City/State/Zipcode Phone Number [facility] [address] [place], [place] [id number] CENTER after 04/02/2019 Insurance Payer Benefit Plan / Subscriber ID Effective Dates Phone Addre ss Type Group CDC REVIEW CDC REVIEW [id number] 2020-[place] [address] [place] [address] Advance Directives For more information, please contact: [phone] Code Status Date Activated Date Inactivated Comments Full Code 03/13/2020 2:29 AM 03/19/2020 2:25 PM This code status was determined by: Patient
--- OUTSIDE RECORDS SUMMARY | 2020-04-02 10:18 | XMS REPORT | Continuity of Care Document ---
:1970 Author Organization [facility] t Address [address] [place] [address] Care Team Providers Name Role Phone Asked, Pcp Primary Care Physician Unavailable Sunday GAMBOA Attending Clinician Ángel GAMBOA, P. Attending Clinician Essence Rodríguez MD Attending Clinician Nora Nichole MD Attending Clinician Jaja Estevez MD Attending Clinician Abbi Jacobsen MD Attending Clinician Farnaz GAMBOA, Nathan Attending Clinician Unavailable SUNDAY Attending Clinician Unavailable MOOKIE BULLARD Attending Clinician Unavailable NORA NICHOLE Admitting Clinician Unavailable Payers Payer Name Policy Type Policy Number Effective Date Expiration Date S sonu [facility] REVIEWCDC [id number] 2020 [facility] [id number] 00:00:00 [place] [address] Problems Condition Condition Condition Status Onset Resolution Last Treating Co mments Source Name Details Category Date Date Treatment Clinician Date Hydrocepha Hydrocepha Disease Active 2019-[address] [facility] rebekah [facility] Allergies, Adverse Reactions, Alerts Allergy Allergy Status Severity Reaction(s) Onset Inactive Treating Comm ents Source Name Type Date Date Clinician Penicill Drug Active 2019-[address] [facility] Allergy stated, [facility] - [facility]: "I am Medical 00 allergic Center to penicilli ns". Aspirin Propensi Active Itching [place] to 02-17 [facility] adverse 00:00: st reaction 00 s to drug Penicill Propensi Active Itching [place] ins ty to 02-17 Methodi adverse 00:00: st reaction 00 s to drug Aspirin Propensi Active Stomach [facility] to 12-21 upset [facility] - adverse 00:00: Medical reaction 00 Center s Social History Social Habit Start Date Stop Date Quantity Comments Source History of tobacco Cigarette Smoker [facility] - use [facility] Center History [facility] - Alcohol Binge [facility] [place] [facility] Exposure to Not sure [facility] - SARS-CoV-2 (event) [facility] Tobacco use and 2020-03-19 2020-03-[address] [facility] St Kimi kes - exposure 00:00:00 00:00:00 [facility] Alcohol intake 2020-03-19 2020-03-19 [facility]er [facility] - [facility] 00:00:00 of alcohol [facility] Center (finding) History [facility] 2020-03-18 2020-03-[address] [facility] - Alcohol Frequency 00:00:00 00:00:00 Medical Center History [facility] 2020-03-18 2020-03-[address] [facility] - Alcohol Std Drinks 00:00:00 00:00:00 [facility] Tobacco Comment 2020-03-18 2020-03-18 1/2 pack a day [facility] Medical Center Cigarettes smoked 2019-02-18 2019-02-18 [place] current (pack per 00:00:00 00:00:[address] day) - Reported Smoking Status Start Date Stop Date Source Current every day smoker 2020-03-19 00:00:00 [facility] Medications Ordered Filled Start Stop Current Ordering Indication Dosage Frequency Signature Comments Components Source Medication Medication Date Date Medication? Clinician (SIG) Name Name HYDROcodone 2019-05 2020- No 1{tbl} Take [address] -acetaminop 0-28 11-07 tablet by Kimi castro (NORCO 00:00: 23:59 mouth Medic al 5-325) 00 :00 every 6 Center 5-325 mg (six) per tablet hours as needed for Pain for up to 10 days. Max Daily Amount: 4 tablets Vital Signs Vital Name Observation Time Observation Value Comments Source Systolic blood 2020-03-19 08:37:00 123 mm[Hg] [facility] Diastolic blood 2020-03-19 08:37:00 81 mm[Hg] [facility] Heart rate 2020-03-19 08:37:00 92 /min [facility] Body temperature 2020-03-19 08:37:00 36.17 Marika [facility] Respiratory rate 2020-03-19 08:37:00 18 /min [facility] Oxygen saturation in 2020-03-19 08:37:00 99 /min [facility] Arterial blood by Medical Ce nter Pulse oximetry Procedures Procedure Date / Time Performing Clinician Source Performed CT BRAIN WITHOUT IV 2020-03-18 19:57:00 Tacos Nguyen [facility] CONTRAST [facility] VENTRICULOSTOMY,THIRD 2020-03-18 16:15:00 Tavon Estevez [facility] VENTRICLE NEUROENDOSCOPIC [facility] STEREOTACTIC SCREEN, URINE 2020-03-18 14:37:00 Socrates Jacobsen [facility] ABORH, MANUAL 2020-03-17 16:18:00 Dinah Mancia [facility] PT/APTT 2020-03-17 14:50:00 Krzysztof Velasquez [facility] TYPE AND SCREEN, AUTOMATED 2020-03-17 14:50:00 Malorie Velasquez [facility] ECG 12-LEAD 2020-03-17 03:47:24 Unknown, Hl7 Doctor [facility] XR CHEST 1 VIEW 2020-03-15 12:58:00 Karena Neal [facility] MR BRAIN WITH & WITHOUT IV 2020-03-14 21:57:00 Karena Neal [facility] BASIC METABOLIC PANEL (7) 2020-03-14 05:35:00 Karena Neal [facility] HEPATIC FUNCTION PANEL 2020-03-14 05:35:00 Karena Neal [facility] CBC W/PLT COUNT & AUTO 2020-03-14 05:35:00 Karena Neal [facility] MR BRAIN WITHOUT IV 2020-03-13 16:32:00 Hua Brand [facility] 2D ECHO W/ DOPPLER 2020-03-13 11:57:44 Laura Nichole [facility] (CW/PW/COLOR) [facility] URINALYSIS W/ MICROSCOPIC 2020-03-13 06:26:00 Laura Nichole [facility] SCREEN, URINE 2020-03-13 06:26:00 Laura Nichole [facility] COMPREHENSIVE METABOLIC 2020-03-13 05:32:00 Laura Nichole [facility] PANEL [facility] MAGNESIUM 2020-03-13 05:32:00 Laura Nichole [facility] TSH/FREE T4 IF INDICATED 2020-03-13 05:32:[address] [facility] CBC W/PLT COUNT & AUTO 2020-03-13 05:32:00 Laura Nichole [facility] DIFFERENTIAL [facility] SARS-COV2/RT-PCR ([facility] & 2020-03-13 05:27:00 Laura Nichole [facility] - REF LABS) [facility] Plan of Care Planned Activity Planned Date Details Comments Source Future Scheduled 2020-01-22 INFLUENZA VACCINE (#[facility]) [facility] [code = INFLUENZA Medical Ce nter VACCINE (#1)] Future Scheduled 2019-12-22 INFLUENZA VACCINE [place] [facility] Test 00:00:00 [code = INFLUENZA VACCINE] Future Scheduled 2019-11-06 BREAST CANCER [facility] Test 00:00:00 SCREENING [code = BREAST CANCER SCREENING] Future Scheduled 2019-11-06 COLONOSCOPY SCREENING Ho yajaira [facility] Test 00:00:00 [code = COLONOSCOPY SCREENING] Future Scheduled 2019-11-06 SHINGLES VACCINES (#1) H kristine [facility] Test 00:00:00 [code = SHINGLES VACCINES (#1)] Future Scheduled [address] - Test 00:00:00 (procedure) [code = [facility] 28874261] Future Scheduled 1990 Screening for [facility] thodist Test 00:00:00 malignant neoplasm of cervix (procedure) [code = 065575439] Future Scheduled [address] [facility] - Test 00:00:00 [facility] cervix (procedure) [code = 967346965] Future Scheduled 1975-11-[address] [facility] - Test 00:00:00 0-64 YRS (1 of 1 - Medical C enter PPSV23) [code = PNEUMOCOCCAL VACCINE 0-64 YRS (1 of 1 - PPSV23)] Future Scheduled [address] [facility] - Test 00:00:00 malignant neoplasm of [facility] breast (procedure) [code = 236924017] Future Scheduled [address] [facility] - Test 00:00:00 malignant neoplasm of [facility] colon (procedure) [code = 708015013] Results Test Description Test Time Test Comments Results Result [facility] e Comments CT, BRAIN, 2020-03-18 Status post WITHOUT CONTRAST 20:08:[address] [facility] : 1970 Sex: F *FINAL REPORT CT, BRAIN, WITHOUT CONTRAST INDICATION: Hydrocephalus TECHNIQUE: Noncontrast axial imaging was obtained from the vertex to the skull base. Axial images were reconstructed using a bone algorithm. DOSE REDUCTION: Dose modulation, iterative reconstruction, and/or weight-based adjustment of the mA/kV was utilized to reduce the radiation dose to as low as reasonably achievable. COMPARISON: MRI 03/14/2020 FINDINGS: Intracranial: There is trace pneumocephalus underlying a right frontal jacek hole, with tract of a removed right frontal approach ventriculostomy catheter. Allowing for differences in modality, ventricular caliber is unchanged. No intracranial hemorrhage or abnormal extra-axial collection. No evidence of acute territorial infarct. No mass effect. Osseous structures: Right frontal jacek hole with overlying soft tissue air and swelling. No fracture. No suspicious lesion. Paranasal sinuses and mastoid air cells: No evidence of sinusitis. Mastoids are clear. Orbital contents: Globes are intact. IMPRESSION: Interval placement and subsequent removal of a right frontal approach ventriculostomy catheter. Ventricular caliber is unchanged. There is trace pneumocephalus. Signed: Mindy Bowling Verified Date/Time: 03/18/2020 20:08:27 brain without 2020-03-18 Interface, [facility] 20:08:00 Ris In - 03/18/2020 - Or dical 8:10 PM CDINAL Center REPORT CT, BRAIN, WITHOUT CONTRAST INDICATION: Hydrocephalus TECHNIQUE: Noncontrast axial imaging was obtained from the vertex to the skull base. Axial images were reconstructed using a bone algorithm. DOSE REDUCTION: Dose modulation, iterative reconstruction, and/or weight-based adjustment of the mA/kV was utilized to reduce the radiation dose to as low as reasonably achievable. COMPARISON: MRI 03/14/2020 FINDINGS: Intracranial: There is trace pneumocephalus underlying a right frontal jacek hole, with tract of a removed right frontal approach ventriculostomy catheter. Allowing for differences in modality, ventricular caliber is unchanged. No intracranial hemorrhage or abnormal extra-axial collection. No evidence of acute territorial infarct. No mass effect. Osseous structures: Right frontal jacek hole with overlying soft tissue air and swelling. No fracture. No suspicious lesion. Paranasal sinuses and mastoid air cells: No evidence of sinusitis. Mastoids are clear. Orbital contents: Globes are intact. IMPRESSION: Interval placement and subsequent removal of a right frontal approach ventriculostomy catheter. Ventricular caliber is unchanged. There is trace pneumocephalus. Signed: Mindy Bowlingeport Verified Date/Time: 03/18/2020 20:08:27 Screen, urine 2020-03-18 14:52:00 Test Item Value Reference Range Interpretation Comme nts Preg Test, Ur (test code = 2112-1) Negative [facility] SCREEN, [id number] 14:52:00 Test Item Value Reference Range Interpretation Comments TEST URINE (BEAKER) (test Negative code = 583) ABORH, [id number] 17:05:00 Test Item Value Reference Range Interpretation Comments ABO Grouping (test code = 2588) O Rh Factor (test code = 2589) NEG [facility]Type and screen, [id number] 16:01:00 Test Item Value Reference Range Interpretation Comments ABO/RH AUTOMATED (BEAKER) (test O NEGATIVE code = 2260) Ab Scrn (test code = 890-4) NEGATIVE [facility] HospitalPT/[id number] 15:24:00 Test Item Value Reference Range Interpretation Comments Protime (test code = 13.4 11.9- 14.2 5902-2) seconds INR (test code = 1.05 <=5.90 6301-6) PTT (test code = 25.9 22.5- 36.0 52912-5) seconds ALYSSA (test code = ALYSSA) Effective 10/18/2018: PT Reference Range ChangeNew: 11.9-14.2 Previous: 11.7-14.7 RECOMMENDED COUMADIN/WARFARIN INR THERAPY RANGESSTANDARD DOSE: 2.0-3.0 Includes: PROPHYLAXIS for venous thrombosis, systemic embolization; TREATMENT for venous thrombosis and/or pulmonary embolus.HIGH RISK: Target INR is 2.5-3.5 for patients wiht mechanical heart valves. Lab Interpretation Normal (test code = 57613-2) [facility]PT/[id number] 15:24:00 Test Item Value Reference Range Interpretation Comments PROTIME (BEAKER) (test code = 13.4 seconds 11.9-14.2 759) INR (BEAKER) (test code = 370) 1.05 <=5.90 PARTIAL THROMBOPLASTIN TIME 25.9 seconds 22.5-36.0 (BEAKER) (test code = 760) Effective 10/18/2018: PT Reference Range ChangeNew: 11.9-14.2 Previous: 11.7- 14.7RECOMMENDED COUMADIN/WARFARIN INR THERAPY RANGESSTANDARD DOSE: 2.0-3.0 Includes: PROPHYLAXIS for venous thrombosis, systemic embolization; TREATMENT for venous thrombosis and/or pulmonary embolus.HIGH RISK: Target INR is2.5-3.5 for patients wiht mechanical heart valves.ECG 12 [id number] 14:16:48 Interface, External Ris In - 03/17/2020 2:16 PM CDTVentricular Rate 67 BPMAtrial Rate 67 BPMP-R Interval 156 msQRS Duration 84 msQ-T Interval 424 msQTC Calculation(Bazett) 448 msP [place] 56 degreesR [place] 76 degreesT [place] 82 degreesNormal sinus rhythmNormal ECGNo previous ECGs availableConfirmed by JORGE KUHN MD, COBY ([id number]) on 03/17/2020 2:16:45 [facility] [place], [id number] 09:18:00Needs to include cine study to assess CSF flow through the aqueductUnlisted Reason for Exam - Click Yes and Enter Reason Below- >YesUnlisted Reason for Exam->Needs to include cine study to assess CSF flow through the aqueduct [facility] 1970 Sex: FFINAL REPORT MR, BRAIN, WITH \\T\\ WITHOUT CONTRAST INDICATION: [place] cephalusNeeds to include cine study to assess CSF flow through the aqueduct Technique: MRI of the brain utilizing axial T1, T2, FLAIR, GRE, DWI, sagittal T1; and postgadolinium axial, sagittal, and coronal T1-weighted images. COMPARISON: March 13, 2020 FINDINGS: Ventricular size is unchanged with the third ventricle measuring up to 1.7 cm in transverse dimension. Minimal T2/FLAIR hyperintense signal surrounding the lateral ventricles concerning for mild transependymal flow. There is disproportionate dilatation of the lateral and third ventricles with thinning of the corpus callosum and flatteningof the fornices. Fourth ventricle appears relatively decompressed. 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 Brain parenchyma is otherwise normal in morphology. Midline structures are normally developed. No restricted diffusion to suggest recent ischemic insult. No abnormal susceptibility. No hydrocephalus. Orbits are within normal limits. No obstructive paranasal sinus disease. Additional findings: None. IMPRESSION: Ventricular size is unchanged with the third ventricle measuring up to 1.7 cm in transverse dimension. Minimal T2/FLAIR hyperintense signal surrounding the lateral ventricles concerning for mild transependymal flow. There is disproportionate dilatation of the lateral and third ventricles with thinning of the corpus callosum and flattening of the fornices. Fourth ventricle appears relatively decompressed. 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 Unfortunately, due to technical difficulties (scanner software error), ventricular flow study was not performed. This will be attempted again Tuesday03/17/2020 following consultation with vendor retail representative.If phase contrast images are added to this accession, this report may be addended. Signed: Mee Montemayor MDReport Verified Date/Time: 03/16/2020 09:18:26 Reading Location: [facility] C0[facility] Neuro ReadingRoom MR brain without & with IV [id number] 09:18:00Interface, External Ris In - 03/16/2020 9:20 AM CDTFINAL REPORT MR, BRAIN, WITH \\T\\ WITHOUT CONTRAST INDICATION: HydrocephalusNeeds to include cine study to assess CSF flow through the aqueduct Technique: MRI of the brain utilizing axial T1, T2, FLAIR, GRE, DWI, sagittal T1; and postgadolinium axial, sagittal, and coronal T1-weighted images. COMPARISON: March 13, 2020 FINDINGS: Ventricular size is unchanged with the third ventricle measuring up to 1.7 cm in transverse dimension. Minimal T2/FLAIR hyperintense signal surrounding the lateral ventricles concerning for mild transependymal flow. There is disproportionate dilatation of the lateral and third ventricles with thinning of the corpus callosum and flattening of the fornices. Fourth ventricle appears relatively decompressed. 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 Brain parenchyma is otherwise normal in morphology. Midline structures are normally developed. No restricted diffusion to suggest recent ischemic insult. No abnormal susceptibility. No hydrocephalus. Orbits are within normal limits. No obstructive paranasal sinus disease. Additional findings: None. IMPRESSION: Ventricular size is unchanged with the third ventricle measuring up to 1.7 cm in transverse dimension. Minimal T2/FLAIR hyperintense signal surrounding the lateral ventricles concerning for mild transependymal flow. There is dispr oportionate dilatation of the lateral and third ventricles with thinning of the corpus callosum and flattening of the fornices. Fourth ventricle appears relatively decompressed. 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 Unfortunately, due to technical difficulties (scanner software error), ventricular flow study was not performed. This will be attempted again Tuesday03/17/2020 followingconsultation with vendor retail representative. If phase contrast images are added to this accession, this report may be addended. Signed: Mee Montemayor Verified Date/Time: 03/16/2020 09:18:26 Reading Location: [facility] C013V Neuro Reading Room [facility] 1 [facility], NON [id number] 13:48:00Reason for exam:->pre opShould this be performed at the bedside?->Yes [facility] 1970 Sex: FFINAL REPORT TECHNIQUE: Frontal view of the chest. INDICATION: 49-y ear-old woman for preoperative evaluation. COMPARISON: None. FINDINGS: LINES/TUBES: None. LUNGS: Lungs are well inflated. Mild curvilinear opacities in both lung bases. PLEURA: No pneumothorax or significant pleural effusion. HEART AND MEDIASTINUM: Cardiomediastinal silhouette is within normal limits. Atherosclerotic calcifications in the thoracic aorta. BONES AND SOFT TISSUES: Unremarkable. IMPRESSION:No acute cardiopulmonary abnormalities. Mild curvilinear opacities in both lung bases, likely atelectasis. Signed: Antonella Yañez MDReport Verified Date/Time: 03/15/2020 13:48:00 Reading Location: [address] Body Reading Room XR chest 1 view portable / [id number] 13:48:00 Interface, External Ris In - 03/15/2020 1:50 PM CDTFINAL REPORT TECHNIQUE: Frontal view of the chest. INDICATION: 49-year-old woman for preoperative evaluation. COMPARISON: None. FINDINGS: LINES/TUBES: None. LUNGS: Lungs are well inflated. Mild curvilinear opacities in both lung bases. PLEURA: No pneumothorax or significant pleural effusion. HEART AND MEDIASTINUM: Cardiomediastinal silhouette is within normal limits. Atherosclerotic calcifications in the thoracic aorta. BONES AND SOFT TISSUES: Unremarkable. IMPRESSION:No acute cardiopulmonary abnormalities. Mild curvilinear opacities in both lung bases, likely atelectasis. Signed: Antonella Yañezeport Verified Date/Time: 03/15/2020 13:48:00 Reading Location: [facility] B1 C013Y CT Body Reading Room Electronically signedby: ANTONELLA YAÑEZ MD on 03/15/2020 01:48 PM [facility] with platelet count + automated [id number] 06:54:00 Test Item Value Reference Range Interpretation Comments WBC (test code = 6690-2) 9.5 3.5- 10.5 K/L RBC (test code = 789-8) 4.36 3.93- 5.22 M/L MCHC (test code = 786-4) 33.3 32.2- 35.5 GM/DL Hematocrit (test code = 4544-3) 42.0 % 34.1-44.9 MCV (test code = 787-2) 96.3 fL 79.4-94.8 H MCH (test code = 785-6) 32.1 pg 25.6-32.2 RDW (test code = 788-0) 13.6 % 11.7-14.4 Platelets (test code = 777-3) 311 150- 450 K/CU MM MPV (test code = 37783-5) 10.0 fL 9.4-12.3 nRBC (test code = 413) 0 0- 0 /100 WBC % Neutros (test code = 429) 45 % % Lymphs (test code = 430) 46 % % Monos (test code = 431) 8 % % Eos (test code = 432) 1 % % Baso (test code = 437) 1 % # Neutros (test code = 670) 4.24 1.56- 6.13 K/L # Lymphs (test code = 414) 4.39 1.18- 3.74 K/L H # Monos (test code = 415) 0.73 0.24- 0.36 K/L H # Eos (test code = 416) 0.08 0.04- 0.36 K/L # Baso (test code = 417) 0.05 0.01- 0.08 K/L Immature Granulocytes-Relative 0 % 0-1 (test code = 2801) Lab Interpretation (test code = Abnormal 80088-7) [facility] W/PLT COUNT & AUTO [id number] 06:54:00 Test Item Value Reference Range Interpretation Comments WHITE BLOOD CELL COUNT (BEAKER) 9.5 K/ L 3.5-10.5 (test code = 775) RED BLOOD CELL COUNT (BEAKER) 4.36 M/ L 3.93-5.22 (test code = 761) HEMOGLOBIN (BEAKER) (test code = 14.0 GM/DL 11.2-15.7 410) HEMATOCRIT (BEAKER) (test code = 42.0 % 34.1-44.9 411) MEAN CORPUSCULAR VOLUME (BEAKER) 96.3 fL 79.4-94.8 H (test code = 753) MEAN CORPUSCULAR HEMOGLOBIN 32.1 pg 25.6-32.2 (BEAKER) (test code = 751) MEAN CORPUSCULAR HEMOGLOBIN CONC 33.3 GM/DL 32.2-35.5 (BEAKER) (test code = 752) RED CELL DISTRIBUTION WIDTH 13.6 % 11.7-14.4 (BEAKER) (test code = 412) PLATELET COUNT (BEAKER) (test 311 K/CU MM 150-450 code = 756) MEAN PLATELET VOLUME (BEAKER) 10.0 fL 9.4-12.3 (test code = 754) NUCLEATED RED BLOOD CELLS 0 /100 WBC 0-0 (BEAKER) (test code = 413) NEUTROPHILS RELATIVE PERCENT 45 % (BEAKER) (test code = 429) LYMPHOCYTES RELATIVE PERCENT 46 % (BEAKER) (test code = 430) MONOCYTES RELATIVE PERCENT 8 % (BEAKER) (test code = 431) EOSINOPHILS RELATIVE PERCENT 1 % (BEAKER) (test code = 432) BASOPHILS RELATIVE PERCENT 1 % (BEAKER) (test code = 437) NEUTROPHILS ABSOLUTE COUNT 4.24 K/ L 1.56-6.13 (BEAKER) (test code = 670) LYMPHOCYTES ABSOLUTE COUNT 4.39 K/ L 1.18-3.74 H (BEAKER) (test code = 414) MONOCYTES ABSOLUTE COUNT (BEAKER) 0.73 K/ L 0.24-0.36 H (test code = 415) EOSINOPHILS ABSOLUTE COUNT 0.08 K/ L 0.04-0.36 (BEAKER) (test code = 416) BASOPHILS ABSOLUTE COUNT (BEAKER) 0.05 K/ L 0.01-0.08 (test code = 417) IMMATURE GRANULOCYTES-RELATIVE 0 % 0-1 PERCENT (BEAKER) (test code = 2801) Basic Metabolic [id number] 06:46:00 Test Item Value Reference Range Interpretation Comments Sodium (test code = 140 meq/L 891-714 6912-2) Potassium (test 3.6 meq/L 3.5-5.1 code = 2823-3) Chloride (test code 107 meq/L 98-107 = 2075-0) CO2 (test code = 24 meq/L 22-29 8-9) BUN (test code = 19 mg/dL 7-21 3094-0) Creatinine (test 0.83 mg/dL 0.57-1.25 code = 2160-0) Glucose (test code 89 mg/dL 70-105 = 2345-7) Calcium (test code 8.9 mg/dL 8.4-10.2 = 96198-4) EGFR (test code = 73 mL/min/1.73 [place] [address]-3) NOT ACCURATE CREATININE CLEARANCE IN PREDICTING GLOMERULAR FILTRATION RATE . ESTIMATED GFR I S NOT APPLICABLE FOR DIALYSIS PATIEN TSDavid ALYSSA (test code = Tile Molder Hand ID - ALYSSA) [facility]NAAnt[facility] Hospital Medical CenterHepatic function [id number] 06:46:00 Test Item Value Reference Range Interpretation Comments Protein, Total (test code 7.3 6.0- 8.3 gm/dL = 2885-2) Albumin (test code = 3.8 g/dL 3.5-5 42564-4) Total Bilirubin (test code 0.4 mg/dL 0.2-1.2 = 1975-2) Bilirubin, Direct (test 0.2 mg/dL 0.1-0.5 code = 1967-7) Alkaline Phosphatase (test 65 U/L 40-150 code = 6768-6) AST (test code = 1920-8) 49 U/L 5-34 H ALT (test code = 1742-6) 43 U/L 6-55 ALYSSA (test code = ALYSSA) [facility] [employer] Hand ID - [facility] Lab Interpretation (test Abnormal code = 24195-2) [facility]I METABOLIC [id number] 06:46:00 Test Item Value Reference Range Interpretation Comments SODIUM (BEAKER) 140 meq/L 136-145 (test code = 381) POTASSIUM (BEAKER) 3.6 meq/L 3.5-5.1 (test code = 379) CHLORIDE (BEAKER) 107 meq/L 98-107 (test code = 382) CO2 (BEAKER) (test 24 meq/L 22-29 code = 355) BLOOD UREA NITROGEN 19 mg/dL 7-21 (BEAKER) (test code = 354) CREATININE (BEAKER) 0.83 mg/dL 0.57-1.25 (test code = 358) GLUCOSE RANDOM 89 mg/dL 70-105 (BEAKER) (test code = 652) CALCIUM (BEAKER) 8.9 mg/dL 8.4-10.2 (test code = 697) EGFR (BEAKER) (test 73 mL/min/1.73 ESTIMA EKNNY GFR IS code = 1092) sq m NOT ACCURATE CREATININE CLEARANCE IN PREDICTING GLOMERULAR FILTRATION RATE . ESTIMATED GFR I S NOT APPLICABLE FOR DIALYSIS PATIEN TS. Tile Molder Hand ID - EDASIHEPATIC FUNCTION [id number] 06:46:00 Test Item Value Reference Range Interpretation Comments TOTAL PROTEIN (BEAKER) (test code = 7.3 gm/dL 6.0-8.3 770) ALBUMIN (BEAKER) (test code = 1145) 3.8 g/dL 3.5-5.0 BILIRUBIN TOTAL (BEAKER) (test code 0.4 mg/dL 0.2-1.2 = 377) BILIRUBIN DIRECT (BEAKER) (test 0.2 mg/dL 0.1-0.5 code = 706) ALKALINE PHOSPHATASE (BEAKER) (test 65 U/L 40-150 code = 346) AST (SGOT) (BEAKER) (test code = 49 U/L 5-34 H 353) ALT (SGPT) (BEAKER) (test code = 43 U/L 6-55 347) Tile Molder Hand ID - EDASIMR, BRAIN, WITHOUT [id number] 18:03:00Needs to include cine study to assess CSF flow through the aqueduct Unlisted Reason for Exam - ClickYes and Enter Reason Below->Yes Unlisted Reason for Exam- >Needs to include cine study to assess CSF flow through the aqueduct Deos the patient have an implanted electronic device?->No [facility] : 1970 Sex: FFINAL REPORT MR, BRAIN, WITHOUT CONTRAST INDICATION: HydrocephalusN eeds to include cine study to assess CSF flow through the aqueduct TECHNIQUE: Multiplanar, multisequence MR imaging of the brain without intravenous contrast. COMPARISON: None FINDINGS: Intracranial: Exam is degraded by motion. There is marked ventriculomegaly disproportionate to sulci, with suggestion of sulcal crowding at the apex. The third ventricle measures 1.7 cm in maximum transverse diameter. There is mild confluent periventricular T2 hyperintensity suggestive of transependymal flow. No acute intracranial hemorrhage. No restricted diffusion to suggest acute infarct. No mass effect. Visualized intracranial flow voids are of normal course and caliber. Scattered foci of T2 prolongation within the periventricular and subcortical white matter are a nonspecific finding commonly attributed to chronic small vessel ischemic disease. Sinuses: No evidence of sinusitis. Mastoids are clear. Orbits:Globes are intact. Calvarium \\T\\ scalp: Unremarkable. IMPRESSION:1.CSF flow studies were not possible due to patient motion.2.Marked ventriculomegaly disproportionate to sulci, and mild transependymal edema. Signed: Mindy Bowling Verified Date/Time: 03/13/2020 18:03:00 MR brain without IV [id number] 18:03:00Interface, External Ris In - 03/13/2020 6:05 PM CDTFINAL REPORT MR, BRAIN, WITHOUT CONTRAST INDICATION: HydrocephalusNeeds to include cine study to assess CSF flow through the aqueduct TECHNIQUE: Multiplanar, multisequence MR imaging of the brain without intravenous contrast. COMPARISON: None FINDINGS: Intracranial: Exam is degraded by motion. There is marked ventriculomegaly disproportionate to sulci, with suggestion of sulcal crowding at the apex. The third ventricle measures 1.7 cm in maximum transverse diameter. There is mild confluent periventricular T2 hyperintensity suggestive of transependymal flow. No acute intracranial hemorrhage. No restricted diffusion to suggest acute infarct. No mass effect. Visualized intracranial flow voids are of normal course and caliber. Scattered foci of T2 prolongation within the periventricular and subcortical white matter are a nonspecific finding commonly attributed to chronic small vessel ischemic disease. Sinuses: No evidence of sinusitis. Mastoids are clear. Orbits: Globes are intact. Calvarium \\T\\ scalp: Unremarkable. IMPRESSION:1.CSF flow studies were not possible due to patient motion.2.Marked ventriculomegaly disproportionate to sulci, and mild transependymal edema. Signed: Mindy Bowling MDReport Verified Date/Time: 1 18:03:00 [facility] [place] Echo W/Doppler(CW/PW/Color) 2020-03-13 17:29:26Ejection FractionSLEH ECHO HEARTLAB MKCKESSON CPACSInterface, External Ris In - 03/13/2020 5:29 PM CDTTransthoracic Echocardiography Report (TTE) Demographics Patient Name GLADYS RUSSO Date of Study 03/13/2020 FELIPE GenderFemale Visit Number [id number] Race Unknown Room Number 2447 Number Date of 1970 Referring Physician LAURA NICHOLE Age 49 year(s) Housing Director Juany Cortes [facility] Interpreting Cyrus Velasquez Physician Fellow Cyrus Barrett MD Procedure Type of Study TTEprocedure:2DECHO W DOPPLER(CW/PW/COLOR) (Routine) Indications:Unexplained Pre-syncope/Syncope.Clinical HistoryHTN;RENAL DISEASE.Height: 67 inches Weight: 72.57 kg (160 lbs) BSA: 1.84 m^2 BMI: 25.06 kg/m^2HR: 75 bpm BP: 126/75 mmHg Summary Normal left ventricular chamber size. Normal overall left ventricular systolic function (55-60% qualitatively). No apparent segmental wall motion abnormalities. Normal diastolic function. Estimated peak systolic PA pressure is 20-25 mmHg + RAP. Signature ------- Findings Left Ventricle Normal left ventricular chamber size. Normal wall thickness. Normal overall left ventricular systolic function (55-60% qualitatively). No apparent segmental wall motion abnormalities.Normal diastolic function. Left Atrium LA size is normal (16-34 ml/m2) . Right Ventricle The right ventricular chamber size and systolic function are within normal limits. Right Atrium RA size is mildly dilated. Aortic Valve Normal AoV structure and function. Trileaflet valve. Mitral Valve Normal MV structure and function. Tricuspid Valve A trace of tricuspid regurgitation. Estimated peak systolic PA pressure is 20-25 mmHg + RAP. Pulmonic Valve Normal PV structure appears normal by available views. Pericardium No pericardial effusion is visualized. IVC/SVC/PA/PV/Pleural The estimated RA pressure by IVC dynamics 5-10mmHg . Chambers/Structures Left Atrium LA Volume: 33.04 ml LA Area: 13.36 cm^2 LA Vol. Index: 18 ml/m^2 Left VentricleLVIDd: 4.67 cm LVEDV:100.6 ml LV Septum Diastolic: [...] LVOT CO: 5.42 l/min LVOT CI: 2.95 l/min/m^2[facility]-PCR (Asymptomatic ONLY)2020-03-13 11:02:00 Test Item Value Reference Range Interpretation Comments SARS-COV2/RT-PCR Negative Not Detected, (test code = Negative, See 98514-3) external report for linked test SARS-COV-2 [facility] PERFORMING LAB (test code = 93134-7) ALYSSA (test code = Negative result for this ALYSSA) test determines that SARS-CoV-2 RNA was not present in the [...] of the Act. Fact Sheet for Healthcare Providers:https://www.[employer]atyou/sites/default/f melvin/product/documents/F act_Sheet_HC_Providers_L pdq_BQVR-EcF-7.pdf Fact Sheet for Healthcare Patients:https://www.[employer]/sites/default/fi les/product/documents/Fa ct_Sheet_Patients_Lyra_S ARS-CoV-2.pdf Performing Laboratory:[address] [address] [facility]2020-03-13 11:02:00 Test Item Value Reference Range Interpretation Comments SARS-COV2/RT-PCR (test Negative Not Detected, Negative, code = 5093379) See external report for linked test SARS-COV-[address] [facility] (test code = 7645133) Negative result for this test determines that SARS-CoV-2 RNA was not present in the specimen above the Limit of Detection (LOD). However, Negative results do not preclude SARS-CoV-2 infection and should not be used as the sole basis for treatment or patient management decisions. Negative results mustbe combined with clinical observations, patient history, and epidemiological information. A false negative result may occur if a specimen is improperly collected, transported or handled. A false negative result should be considered if patient's recent exposures or clinical presentation indicate that COVID-19 (SARS-CoV-2) is likely and diagnostic tests for other causes of illness are negative. Re-testing should be considered in cases of suspected false negatives.The limit of detection for this assay is 800 copies/mL.This SARS CoV-2 test is a real-time RT-PCR test intended for the qualitative detection of nucleic acid from SARS-CoV-2 in a nasopharyngeal swab specimen collected from individuals susp ected of COVID-19 by their healthcare provider.This test has not been Food and Drug [...] is revoked under Section 564(g) of the Act.Fact Sheet for Healthcare Providers:https://www.[employer]/sites/default/files/product/documents/Fact_Shee n_GV_Pfqyawfij_Puzn_XADB-DgX-7.pdfFact Sheet for Healthcare Patients:https://www.[employer]/sites/default/files/product/ documents/Ircz_Jeqed_Glxuavfo_Ceoy_ACWZ-MwB-2.pdfPerforming Laboratory:[facility] [facility].[place], [place] [address]Ymabqarpsj w/[id number] 07:57:00 Test Item Value Reference Range Interpretation Comments Color, UA (test code = Yellow 5778-6) Clarity, UA (test code = Hazy 5767-9) Specific [place], UA (test 1.021 1.001-1.035 code = 5811-5) pH, UA (test code = 7.0 5.0-8.0 5803-2) Protein, UA (test code = 20 mg/dL Negative A 96515-6) Glucose, UA (test code = Negative Negative 365) Ketones, UA (test code = 40 mg/dL Negative A 2514-8) Bilirubin, UA (test code = Negative Negative 70725-0) Blood, UA (test code = Negative Negative 66587-6) Nitrite, UA (test code = Positive Negative A 5802-4) Leukocytes, UA (test code Moderate Negative A = 5799-2) Urobilinogen, UA (test 0.2 mg/dL 0.2-1 code = 84926-8) RBC, UA (test code = 2 /HPF 82352-5) WBC, UA (test code = 46 /HPF 5821-4) Bacteria, UA (test code = Few 79633-4) Squam Epithel, UA (test 1 /HPF code = 94090-0) Specimen Source (test code = 2795) ALYSSA (test code = ALYSSA) Tile Molder Hand ID - [auto]Tile Molder Hand ID - tech Lab Interpretation (test Abnormal code = 89499-5) [facility]/ [id number] 07:57:00 Test Item Value Reference Range Interpretation Comments COLOR (BEAKER) (test code = 470) Yellow CLARITY (BEAKER) (test code = 469) Hazy SPECIFIC GRAVITY UA (BEAKER) (test 1.021 1.001-1.035 code = 468) PH UA (BEAKER) (test code = 467) 7.0 5.0-8.0 PROTEIN UA (BEAKER) (test code = 20 mg/dL Negative A 464) GLUCOSE UA (BEAKER) (test code = Negative Negative 365) KETONES UA (BEAKER) (test code = 40 mg/dL Negative A 371) BILIRUBIN UA (BEAKER) (test code = Negative Negative 462) BLOOD UA (BEAKER) (test code = 461) Negative Negative NITRITE UA (BEAKER) (test code = Positive Negative A 465) LEUKOCYTE ESTERASE UA (BEAKER) Moderate Negative A (test code = 466) UROBILINOGEN UA (BEAKER) (test code 0.2 mg/dL 0.2-1.0 = 463) RBC UA (BEAKER) (test code = 519) 2 /HPF WBC UA (BEAKER) (test code = 520) 46 /HPF BACTERIA (BEAKER) (test code = 517) Few SQUAMOUS EPITHELIAL (BEAKER) (test 1 /HPF code = 516) SOURCE(BEAKER) (test code = 2795) Tile Molder Hand ID - [auto]Tile Molder Hand ID - techComprehensive metabolic [id number] 07:42:00 Test Item Value Reference Range Interpretation Comments Protein, Total (test 7.7 6.0- 8.3 gm/dL code = 2885-2) Albumin (test code = 4.0 g/dL 3.5-5 85558-0) Alkaline Phosphatase 73 U/L 40-150 (test code = 6768-6) Total Bilirubin (test 0.4 mg/dL 0.2-1.2 code = 1975-2) Sodium (test code = 136 meq/L 161-022 5566-2) Potassium (test code = 3.9 meq/L 3.5-5.1 2823-3) Chloride (test code = 107 meq/L 98-107 2075-0) CO2 (test code = 21 meq/L 22-29 L 8-9) BUN (test code = 14 mg/dL 7-21 3094-0) Creatinine (test code 0.78 mg/dL 0.57-1.25 = 2160-0) Glucose (test code = 115 mg/dL 70-105 H 2345-7) Calcium (test code = 8.8 mg/dL 8.4-10.2 71299-6) AST (test code = 71 U/L 5-34 H 1920-8) ALT (test code = 49 U/L 6-55 1742-6) EGFR (test code = 78 mL/min/1.73 [place] [address]-5) NOT ACCURATE CREATININE CLEARANCE IN PREDICTING GLOMERULAR FILTRATION RATE . ESTIMATED GFR I S NOT APPLICABLE FOR DIALYSIS PATIENTS. ALYSSA (test code = ALYSSA) Tile Molder Hand ID - AAHAMID Lab Interpretation Abnormal (test code = 40458-2) [facility] HospitalMagnesium2020-10-22 07:42:00 Test Item Value Reference Range Interpretation Comments Magnesium (test code = 2.0 mg/dL 1.6-2.6 97966-1) ALYSSA (test code = ALYSSA) Tile Molder Hand ID - AAHAMID Lab Interpretation (test Normal code = 28410-1) [facility] HospitalCOMPREHENSIVE METABOLIC [id number] 07:42:00 Test Item Value Reference Range Interpretation Comments TOTAL PROTEIN 7.7 gm/dL 6.0-8.3 (BEAKER) (test code = 770) ALBUMIN (BEAKER) 4.0 g/dL 3.5-5.0 (test code = 1145) ALKALINE PHOSPHATASE 73 U/L 40-150 (BEAKER) (test code = 346) BILIRUBIN TOTAL 0.4 mg/dL 0.2-1.2 (BEAKER) (test code = 377) SODIUM (BEAKER) (test 136 meq/L 136-145 code = 381) POTASSIUM (BEAKER) 3.9 meq/L 3.5-5.1 (test code = 379) CHLORIDE (BEAKER) 107 meq/L 98-107 (test code = 382) CO2 (BEAKER) (test 21 meq/L 22-29 L code = 355) BLOOD UREA NITROGEN 14 mg/dL 7-21 (BEAKER) (test code = 354) CREATININE (BEAKER) 0.78 mg/dL 0.57-1.25 (test code = 358) GLUCOSE RANDOM 115 mg/dL 70-105 H (BEAKER) (test code = 652) CALCIUM (BEAKER) 8.8 mg/dL 8.4-10.2 (test code = 697) AST (SGOT) (BEAKER) 71 U/L 5-34 H (test code = 353) ALT (SGPT) (BEAKER) 49 U/L 6-55 (test code = 347) EGFR (BEAKER) (test 78 mL/min/1.73 ESTIMA KENNY GFR IS code = 1092) sq m NOT ACCURATE CREATININE CLEARANCE IN PREDICTING GLOMERULAR FILTRATION RATE . ESTIMATED GFR I S NOT APPLICABLE FOR DIALYSIS PATIEN TS. Tile Molder Hand ID - [id number] 07:42:00 Test Item Value Reference Range Interpretation Comments MAGNESIUM (BEAKER) (test code = 2.0 mg/dL 1.6-2.6 627) Tile Molder Hand ID - AAHAMIDPREGNANCY SCREEN, [id number] 07:34:00 Test Item Value Reference Range Interpretation Comments TEST URINE (BEAKER) (test Negative code = 583) CBC W/PLT COUNT & AUTO [id number] 07:31:00 Test Item Value Reference Range Interpretation Comments WHITE BLOOD CELL COUNT (BEAKER) 8.3 K/ L 3.5-10.5 (test code = 775) RED BLOOD CELL COUNT (BEAKER) 4.41 M/ L 3.93-5.22 (test code = 761) HEMOGLOBIN (BEAKER) (test code = 14.4 GM/DL 11.2-15.7 410) HEMATOCRIT (BEAKER) (test code = 42.2 % 34.1-44.9 411) MEAN CORPUSCULAR VOLUME (BEAKER) 95.7 fL 79.4-94.8 H (test code = 753) MEAN CORPUSCULAR HEMOGLOBIN 32.7 pg 25.6-32.2 H (BEAKER) (test code = 751) MEAN CORPUSCULAR HEMOGLOBIN CONC 34.1 GM/DL 32.2-35.5 (BEAKER) (test code = 752) RED CELL DISTRIBUTION WIDTH 13.4 % 11.7-14.4 (BEAKER) (test code = 412) PLATELET COUNT (BEAKER) (test 312 K/CU MM 150-450 code = 756) MEAN PLATELET VOLUME (BEAKER) 10.4 fL 9.4-12.3 (test code = 754) NUCLEATED RED BLOOD CELLS 0 /100 WBC 0-0 (BEAKER) (test code = 413) NEUTROPHILS RELATIVE PERCENT 82 % (BEAKER) (test code = 429) LYMPHOCYTES RELATIVE PERCENT 16 % (BEAKER) (test code = 430) MONOCYTES RELATIVE PERCENT 1 % (BEAKER) (test code = 431) EOSINOPHILS RELATIVE PERCENT 0 % (BEAKER) (test code = 432) BASOPHILS RELATIVE PERCENT 1 % (BEAKER) (test code = 437) NEUTROPHILS ABSOLUTE COUNT 6.80 K/ L 1.56-6.13 H (BEAKER) (test code = 670) LYMPHOCYTES ABSOLUTE COUNT 1.28 K/ L 1.18-3.74 (BEAKER) (test code = 414) MONOCYTES ABSOLUTE COUNT (BEAKER) 0.10 K/ L 0.24-0.36 L (test code = 415) EOSINOPHILS ABSOLUTE COUNT 0.00 K/ L 0.04-0.36 L (BEAKER) (test code = 416) BASOPHILS ABSOLUTE COUNT (BEAKER) 0.04 K/ L 0.01-0.08 (test code = 417) IMMATURE GRANULOCYTES-RELATIVE 0 % 0-1 PERCENT (BEAKER) (test code = 2801) TSH/Free T4 If [id number] 07:30:00 Test Item Value Reference Range Interpretation Comments TSH (test code = 0.363 0.350- 4.940 uIU/mL 08735-0) ALYSSA (test code = ALYSSA) Tile Molder Hand ID - AAHAMID Lab Interpretation (test Normal code = 31974-4) [facility] T[facility] IF [id number] 07:30:00 Test Item Value Reference Range Interpretation Comments THYROID STIMULATING HORMONE 0.363 uIU/mL 0.350-4.940 (BEAKER) (test code = 772) Tile Molder Hand ID - AAHAMIDPREGNANCY SCREEN, [id number] 07:40:00 Test Item Value Reference Range Interpretation Comments TEST URINE (BEAKER) (test Negative code = 583) BASIC METABOLIC [id number] 07:30:00 Test Item Value Reference Range Interpretation [...] ESTIMATED GFR. CBC W/PLT COUNT & AUTO [id number] 07:20:00 Test Item Value Reference Range Interpretation [...] code = 2801) URINALYSIS W/ REFLEX URINE [id number] 07:17:00 Test Item Value Reference Range Interpretation [...] code = 516) SOURCE(BEAKER) (test code = 0997)
--- OUTSIDE RECORDS SUMMARY | 2020-04-02 10:18 | XMS REPORT | Continuity of Care Document ---
:1970 Author Organization [facility] Address [address] [place] [address] Care Team Providers Name Role Phone PHYSICIAN, NO Primary Care Physician Unavailable Allergies, Adverse Reactions, Alerts Allergen Type Severity Reaction Last Verified Status Updated Aspirin Allergy Unknown December 24, No Active ([id number]) 2015 Penicillins Allergy Unknown December 24, No Active ([id number]) 2015 Medications Medication Status Dose Units Route [...] February 8.4 4.0-11.5 MR , 104 2019 [facility] [address] 9:38am Red Blood Count February 4.97 3.80-5.20 [facility] , 104 2019 [facility] 72138 9:38am Hemoglobin February 16.1 10.5-15.7 [facility], 104 2019 [facility] 72113 9:38am Hematocrit February 47.7 34.0-50.0 [facility], 104 [facility] [address] 2019 [facility] [address]24 9:38am Mean Corpuscular October 96.0 86-100 [facility], 104 [facility] [address] Volume 2019 [facility] 9:38am Mean Corpuscular February 32.4 26.2-33.4 [facility], 104 [facility] [address] Hemoglobin 2019 [facility] 9:38am Mean Corpuscular February 33.8 30-34 [facility], 104 [facility] [address] Hemoglobin Concent 2019 [facility] 9:38am Red Cell February 13.2 12.0-15.5 [facility], 104 [facility] Distribution Width 2019 [facility] 9:38am Platelet Count February 338 165-450 [facility], 104 [facility] [address] 2019 [facility] 9:38am Mean Platelet February 10.0 9.4-12.6 [facility], 104 [facility] [address] Volume 2019 [facility] 9:38am Neutrophils (%) February 45.9 44.4-80.1 [facility] , 104 [facility] [address] (Auto) 2019 [facility] 9:38am Immature February 0.2 0.0-0.4 [facility], 104 Granulocyte % 2019 [facility] (Auto) 9:38am Lymphocytes (%) February 40.3 10.0-50.0 [facility] , 104 [facility] [address] (Auto) 2019 [facility] 9:38am Monocytes (%) February 9.9 3.6-12.0 [facility], [facility] [address] (Auto) 2019 [facility] 9:38am Eosinophils (%) February 2.9 0.0-5.4 [facility] , 104 [facility] [address] (Auto) 2019 [facility] 9:38am Basophils (%) February 0.8 0.1-1.2 [facility], [facility] [address] (Auto) 2019 [facility] 9:38am Neutrophils # October 3.85 1.56-6.13 [facility], 104 [facility] [address] (Auto) 2019 [facility] 9:38am Absolute Immature February 0.0 0.0-0.03 [facility], 104 [facility] [address] Granulocyte (auto 2019 [place] [id number] 9:38am Lymphocytes # February 3.4 1.18-3.74 [facility], [facility] (Auto) 2019 [place] 180504 9:38am Monocytes # (Auto) February 0.83 0.24-0.86 M [facility], 104 2019 [place] 180504 9:38am Eosinophils # February 0.24 0.04-0.36 [facility], 104 [facility] (Auto) 2019 [place] [address] 9:38am Basophils # (Auto) February 0.07 0.01-0.08 M [facility], 104 2019 [place] [id number] 9:38am Nucleated Red February 0 0-0.2 [facility], [facility] Blood Cells % 2019 [place] [id number] 9:38am Nucleated Red February 0 0 [facility], [facility] Blood Cells # 2019 [place] [id number] 9:38am Urine Color February YELLOW [facility], 10 4 2019 [place] [address] 9:38am Urine Appearance February [facility], 2019 [place] [address] 9:38am Urine Glucose (UA) October NEGATIVE NEGATIVE M [facility], 2019 [place] [address] 9:38am Urine Bilirubin October NEGATIVE NEGATIVE [facility] , 2019 [place] [address] 9:38am Urine Ketones February NEGATIVE NEGATIVE [facility], 2019 [place] [address] 9:38am Urine Specific October 1.016 1.003-1.03 [facility] , [address] [place] 2019 [place] [address] 9:38am Urine Blood February NEGATIVE NEGATIVE [facility], 10 4 2019 [place] [id number] 9:38am Urine pH February 6.000 5-9 [facility], 2019 [place] [address] 9:38am Urine Protein February NEGATIVE NEGATIVE [facility], [facility] 2019 [place] [address] 9:38am Urine Urobilinogen February NORMAL 0.2-1.0 M [facility], 2019 [place] [address] 9:38am Urine Nitrate October NEGATIVE NEGATIVE [facility], 104 2019 [facility] [address] 9:38am Urine Leukocyte February NEGATIVE NEGATIVE [facility] , ST Esterase 2019 [facility] [address] 9:38am Urine RBC February 1-5 0-5 [facility], 2019 [facility] [address] 9:38am Urine WBC February <1 0-5 [facility], 2019 [facility] [address] 9:38am Urine Epithelial October 1-5 0-5 [facility], Cells 2019 [facility] 62608 9:38am Urine Bacteria February None None [facility], 104 2019 Detected Detect [facility] [address] 9:38am Urine Casts February 2-5 None [facility], 10 4 2019 Detect [facility] [address]2005 9:38am Urine Culture February NO [facility], Reflexed 2019 [facility] [address] 9:38am Random Glucose February 60 74-106 [facility], 2019 [place] [id number] 9:38am Blood Urea February 9 6-20 [facility], 104 Nitrogen 2019 [facility] [address]37 9:38am Serum Osmolality February 274 280-300 [facility], 2019 [facility] 79372 9:38am Creatinine February 0.7 0.50-0.90 [facility], 2019 [facility] 62427 9:38am Glomerular February > 60.00 GFR RESULTS [facility], Filtration Rate 2019 [place] [id number] Calc 9:38am REPORTED IN mL/min/1.73 m2.Normal GFR: >60mL/minMo derately decreased GFR: 30-59 mL/minSever zak decreased GFR: 15-29 mL/minKidne y Failure (or Dialysis): <15 mL/minThe calculated eGFR is not valid for patients younger than 18 years or older than 75 years. BUN/Creatinine February 12.9 12-20 [facility], 104 Ratio 2019 [place] [id number] 9:38am Sodium Level February 139 135-145 [facility], 1 04 2019 [facility] 40369 9:38am Potassium Level February 3.3 3.5-5.2 [facility] , 2019 [place] [id number] 9:38am Chloride Level February 102 98-108 [facility], [address] [facility] [address] 2019 [place] [id number] 9:38am Carbon Dioxide February 25 21-32 [facility], 104 [facility] [address] Level 2019 [place] [id number] 9:38am Anion Gap February 15.3 12-20 [facility], 104 [facility] [address] 2019 [place] [id number] 9:38am Calcium Level February 9.3 8.6-10.0 [facility], 104 [facility] [address] 2019 [place] [id number] 9:38am Total Protein February 8.3 6.6-8.7 [facility], [address] 2019 [place] [id number] 9:38am Albumin February 4.4 3.5-5.2 [facility], [address] [place] [address] 2019 [place] [id number] 9:38am Globulin February 3.9 [facility], 104 [facility] 2019 [place] [id number] 9:38am Albumin/Globulin February 1.1 >1.0 [facility], 104 [facility] Ratio 2019 [place] [address] 9:38am Total Bilirubin February 0.4 0.0-1.2 [facility] , [address] [place] [address] 2019 [place] [address] 9:38am Aspartate Amino February 68 15-32 [facility] , 104 [facility] Transf (AST/SGOT) 2019 [place] [id number] 9:38am Alanine February 71 0-33 [facility], [address] [facility] [address] Aminotransferase 2019 [place] [id number] (ALT/SGPT) 9:38am Lipase February 31 13-60 [facility], [address] [place] [address] 2019 [place] [id number] 9:38am Total Alkaline February 85 35-105 [facility], 104 [facility] Phosphatase 2019 [place] [id number] 9:38am Health Concerns Health Concerns may be documented in an alternate section. Advance Directives Advance Directive Response Recorded Date/Time Advance Directives No December 25, 2015 6:0 9pm Advance Directive on File No March 01, 2020 9:21am Directive to Physicians/Living No December 6:09pm Will Health Care Proxy No December 25, 2015 6:0 9pm Organ Donor No December 25, 2015 6:0 9pm Medical Power of Stencil Typist No Mena 4th, 20 16 6:09pm Chief Complaint and Reason for Visit Chief Complaint General Complaint Reason for Visit [id number] Encounters Encounter Location(s) Arrival/Admit Date Discharge/Depart Date Provider(s) Departed Carol March 01, 2020 March 01, 2020 [facility] 9:13am 11:51am Ctr Assessments No Assessments Information Available Functional Status No Functional Status information available Goals Goals may be documented in an alternate section. Immunizations No Immunization Information Available Mental Status No Mental Status Information Available Medical Equipment No Medical Equipment Information available Insurance Providers Guarantor Pao Russo Address [address] [address] Contact Info. Home Phone: Payer Policy Id [...] is unavailable Patient Instructions Abdominal Pain, Adult, [id number]-Zxec Social History Smoking Status Status Date of [...]
[2020-04-02] MEDS ORDERED: METOCLOPRAMIDE 10 MG/2mL INJ ONE (10:53)
[2020-04-02] MEDS ORDERED: DIPHENHYDRAMINE 50 MG/ML VIAL ONE (10:53)
[2020-04-02] MEDS ORDERED: NA CHLORIDE 0.9% 250 ML ONE (10:54)
--- NOTE | 2020-04-02 11:01 | EDPHYS ---
Physician Documentation Formerly [facility] Name: Pao Gonzales Age: 49 yrs Sex: Female : 1970 Arrival Date: 04/02/2020 Time: 09:10 Bed 6 Private MD: ED Physician Gurpreet Suarez HPI: 04/02 09:25 This 49 yrs old Female presents to ER via Ambulatory with complaints of jmm Dizziness, Suture Removal, Headache. 09:25 Onset: The symptoms/episode began/occurred gradually, 5 day(s) ago. Modifying factors: jmm The symptoms are alleviated by nothing, the symptoms are aggravated by nothing. Associated signs and symptoms: Pertinent positives: vomiting. This is a 49 year old female with a history of recently diagnosed hydrocephalus that presents to the ED with complaints of headache, dizziness, vomiting beginning 5 days ago. Patient was discharged 2 weeks prior after a fall with initial diagnosis. . [employer]: 04/03 01:06 LMP 2017 rr5 Historical: - Allergies: 04/02 09:20 Aspirin; bb 09:20 PENICILLINS; bb - PMHx: 04/03 01:05 breast cancer; CVA; kidney problems; Myocardial infarction; rr5 - Immunization history:: Adult Immunizations up to date. - Social history:: Smoking status: Patient reports the use of cigarette tobacco products, smokes one pack cigarettes per day. ROS: 04/02 09:25 Constitutional: Negative for fever, chills, and weight loss, Cardiovascular: Negative jmm for chest pain, palpitations, and edema, Respiratory: Negative for shortness of breath, cough, wheezing, and pleuritic chest pain. Neuro: Positive for dizziness, headache. All other systems are negative. Exam: 09:25 Constitutional: This is a well developed, well nourished patient who is awake, alert, jmm and in no acute distress. Head/Face: atraumatic. Eyes: EOMI, no conjunctival erythema appreciated ENT: Moist Mucus Membranes Neck: Trachea midline, Supple Chest/axilla: Normal chest wall appearance and motion. Cardiovascular: Regular rate and rhythm. No edema appreciated Respiratory: Normal respirations, no respiratory distress appreciated Abdomen/GI: Non distended, soft Back: Normal ROM Skin: General appearance color normal MS/ Extremity: Moves all extremities, no obvious deformities appreciated, no edema noted to the lower extremities Neuro: Awake and alert, normal gait Psych: Behavior is normal, Mood is normal, Patient is cooperative and pleasant Vital Signs: 09:16 BP 142 / 109; Pulse 88; Resp 16; Temp 98.1; Pulse Ox 100% on R/A; Pain 9/10; bb 11:27 BP 132 / 81; Pulse 77; Resp 18; Pulse Ox 98% on R/A; ph 13:05 BP 123 / 78; Pulse 68; Resp 18; Pulse Ox 98% on R/A; ph 17:15 BP 145 / 86; Pulse 67; Resp 16; Pulse Ox 99% on R/A; ph 19:00 BP 134 / 82; Pulse 68; Resp 18; Pulse Ox 99% on R/A; wh 20:00 BP 125 / 84; Pulse 71; Resp 18; Pulse Ox 98% on R/A; wh 21:00 BP 120 / 69; Pulse 75; Resp 19; Pulse Ox 99% ; rr5 22:00 BP 125 / 76; Pulse 72; Resp 19; Pulse Ox 98% ; rr5 23:00 BP 101 / 60; Pulse 64; Resp 16; Pulse Ox 99% ; rr5 11/12 00:00 BP 106 / 55; Pulse 76; Resp 16; Pulse Ox 98% ; rr5 01:00 BP 111 / 70; Pulse 69; Resp 15; Pulse Ox 98% ; rr5 02:00 BP 102 / 62; Pulse 64; Resp 17; Pulse Ox 100% ; rr5 03:00 BP 105 / 62; Pulse 68; Resp 17; Pulse Ox 99% ; rr5 03:53 BP 107 / 82; Pulse 63; Resp 18; Temp 98; Pulse Ox 99% ; rr5 06:00 BP 110 / 70; Pulse 69; Resp 19; Pulse Ox 99% ; rr5 08:00 BP 120 / 73; Pulse 65; Resp 16; Pulse Ox 98% on R/A; iw 11:02 BP 100 / 67; Pulse 69; Resp 16; Pulse Ox 98% on R/A; Pain 7/10; iw MDM: 04/02 09:25 Patient medically screened. thelma 10:58 Data reviewed: vital signs, nurses notes. Counseling: I had a detailed discussion with thelma the patient and/or guardian regarding: the historical points, exam findings, and any diagnostic results supporting the discharge/admit diagnosis, the need to transfer to another facility. ED course: I discussed the patient with Dr. Maurer whom accepted transfer. . 04/02 09:33 Order name: CBC with Diff; Complete Time: 11:24 [facility] 04/02 09:33 Order name: CMP; Complete Time: 11:24 [facility] 04/02 09:33 Order name: PT-INR; Complete Time: 11:24 [facility] 04/02 09:33 Order name: CT Head Brain wo Cont; Complete Time: 10:04 [facility] 04/02 11:11 Order name: Urine Dipstick--Ancillary (enter results); Complete Time: 11:30 bd 04/02 11:26 Order name: COVID-19 [facility] 04/02 09:33 Order name: Saline Lock; Complete Time: 10:56 [facility] 04/02 09:33 Order name: EKG - Nurse/Tech; Complete Time: 17:15 [facility] 04/02 13:48 Order name: EKG Electrocardiogram [facility] 04/02 17:16 Order name: Diet Regular; Complete Time: 17:17 ph 04/03 06:56 Order name: Diet Regular; Complete Time: 06:57 rr5 04/03 11:29 Order name: Diet Regular; Complete Time: 11:30 iw Administered Medications: 10:55 Drug: diphenhydrAMINE 12.5 mg Route: IVP; Site: left antecubital; ph 19:20 Follow up: Response: No adverse reaction ph 10:55 Drug: NS 0.9% 250 ml Route: IV; Rate: bolus; Site: left antecubital; ph 10:56 Drug: Reglan 10 mg Route: IVP; Site: left antecubital; ph 19:19 Follow up: Response: No adverse reaction ph 14:44 Drug: Zofran (Ondansetron) 4 mg Route: IVP; Site: left antecubital; ph 19:20 Follow up: Response: No adverse reaction ph 14:45 Drug: morphine 2 mg Route: IVP; Site: left antecubital; ph 18:35 Drug: morphine 2 mg Route: IVP; Site: left antecubital; ph 19:20 Follow up: Response: No adverse reaction; Pain is decreased ph 20:23 Drug: morphine 2 mg {Note: rass 0.} Route: IVP; Site: right wrist; rr5 11/12 00:17 Follow up: Response: No adverse reaction; Pain is decreased; RASS: Alert and Calm (0) 00:17 Drug: morphine 2 mg {Note: RASS 0.} Route: IVP; Site: right wrist; wh 01:30 Follow up: Response: No adverse reaction; Pain is decreased; RASS: Alert and Calm (0) rr5 03:52 Drug: Benadryl 12.5 mg Route: IVP; Site: right wrist; rr5 04:50 Follow up: Response: No adverse reaction rr5 07:54 Drug: morphine 2 mg Route: IVP; Site: right wrist; iw 10:31 Drug: Atarax 50 mg Route: PO; hb 11:29 Drug: Nicotine 21 mg/24 hr 1 patches {Note: right arm.} Route: Transdermal; Site: iw affected area; 11:30 Drug: morphine 2 mg Route: IVP; Site: right antecubital; iw 16:03 Drug: morphine 2 mg Route: IVP; Site: right antecubital; iw Disposition: 04/04 05:11 Co-signature as Attending Physician, Gurpreet Suarez MD I agree with the assessment and [facility] plan of care. Disposition: 04/02/20 11:00 Transfer ordered to [facility]. Diagnosis are Hydrocephalus, unspecified, Vomiting. - Reason for transfer: Higher level of care. - Accepting physician is Erasto. - Condition is Stable. - Problem is new. - Symptoms are unchanged. Signatures: Dispatcher [employer] Gurpreet Bolanos MD MD cha Mickail, Joel, PA PA jmm Ballard, Brenda, RN RN bb Williams, Irene, RN RN Anais Galvez RN RN Elly Jaramillo RN RN Lei Zheng Zaid Polanco, RN RN rr5 Corrections: (The following items were deleted from the chart) 04/03 16:06 04/02 11:00 04/02/2020 11:00 Transfer ordered to [facility]. iw Diagnosis is Hydrocephalus, unspecified; Vomiting. Reason for transfer: Higher level of care. Accepting physician is Erasto. Condition is Stable. Problem is new. Symptoms are unchanged. sofía
--- NOTE | 2020-04-02 11:01 | ER ---
Nurse's Notes [facility] Name: Pao Gonzales Age: 49 yrs Sex: Female : 1970 Arrival Date: 04/02/2020 Time: 09:10 Bed 6 Private MD: Diagnosis: Hydrocephalus, unspecified;Vomiting Presentation: 04/02 09:16 Chief complaint: Chief complaint: Dizziness, headache, and nausea x 4-5 days. bb [address] [facility] 03/13 for hydrocephalus, also needs stitches on top of head removed. 09:16 Coronavirus screen: At this time, the client does not indicate any symptoms associated bb with coronavirus-19. Ebola Screen: No symptoms or risks identified at this time. Initial Sepsis Screen: Does the patient meet any 2 criteria? No. Patient's initial sepsis screen is negative. Does the patient have a suspected source of infection? No. Patient's initial sepsis screen is negative. Risk Assessment: Do you want to hurt yourself or someone else? Patient reports no desire to harm self or others. Onset of symptoms was March 29, 2020. 09:16 Method Of Arrival: Ambulatory 09:16 Acuity: YOSHI 3 bb LOOM SETTER: 04/03 01:06 LMP 2017 rr5 Historical: - Allergies: 04/02 09:20 Aspirin; bb 09:20 PENICILLINS; bb - PMHx: 04/03 01:05 breast cancer; CVA; kidney problems; Myocardial infarction; rr5 - Immunization history:: Adult Immunizations up to date. - Social history:: Smoking status: Patient reports the use of cigarette tobacco products, smokes one pack cigarettes per day. Screenin/11 10:35 Abuse screen: Denies threats or abuse. Denies injuries from another. Nutritional ph screening: No deficits noted. Tuberculosis screening: No symptoms or risk factors identified. Fall Risk None identified. Assessment: 11:25 General: Appears in no apparent distress. comfortable, well groomed, Behavior is calm, ph cooperative, appropriate for age, Denies fever. Pain: Complains of pain in left parietal area, right parietal area and occipital area. Neuro: Level of Consciousness is awake, alert, obeys commands, Oriented to person, place, time, situation, Gait is steady, Speech is normal, Pupils are PERRLA, Reports dizziness, headache occipital area. Cardiovascular: Capillary refill < 3 seconds in bilateral fingers Patient's skin is warm and dry. Respiratory: Airway is patent Respiratory effort is even, unlabored. GI: Reports nausea. Derm: Skin is healthy with good turgor, Skin is pink, warm \\T\\ dry. sutures noted to R frontal area of head. Musculoskeletal: Circulation, motion, and sensation intact. Range of motion: intact in all extremities. 12:30 Reassessment: Patient appears in no apparent distress at this time. Patient and/or ph family updated on plan of care and expected duration. Pain level reassessed. Patient is alert, oriented x 3, equal unlabored respirations, skin warm/dry/pink. 13:30 Reassessment: Patient appears in no apparent distress at this time. Patient and/or ph family updated on plan of care and expected duration. Pain level reassessed. Patient is alert, oriented x 3, equal unlabored respirations, skin warm/dry/pink. 14:30 Reassessment: Patient appears in no apparent distress at this time. Patient and/or ph family updated on plan of care and expected duration. Pain level reassessed. Patient is alert, oriented x 3, equal unlabored respirations, skin warm/dry/pink. 15:30 Reassessment: Patient appears in no apparent distress at this time. No changes from previously documented assessment. Patient and/or family updated on plan of care and expected duration. Pain level reassessed. Patient is alert, oriented x 3, equal unlabored respirations, skin warm/dry/pink. 'Awaiting room assignment at [facility], no neuro beds available at this time. 19:10 Reassessment: Patient appears in no apparent distress at this time. Patient and/or ph family updated on plan of care and expected duration. Pain level reassessed. Patient is alert, oriented x 3, equal unlabored respirations, skin warm/dry/pink. 19:15 General: Appears in no apparent distress. Behavior is calm, cooperative, appropriate wh for age. Pain: Denies pain. Neuro: Level of Consciousness is awake, alert, obeys commands, Oriented to person, place, time, situation, Appropriate for age Reports dizziness, headache. Cardiovascular: Capillary refill < 3 seconds. Respiratory: Airway is patent Respiratory effort is Respiratory pattern is regular, symmetrical. GI: Abdomen is flat, non-distended, Reports nausea. : No signs and/or symptoms were reported regarding the genitourinary system. EENT: No signs and/or symptoms were reported regarding the EENT system. Derm: Skin is intact, is healthy with good turgor, Skin is pink, warm \\T\\ dry. normal. Musculoskeletal: Circulation, motion, and sensation intact. 20:20 Reassessment: complaining of headache pain score 9/10 ED provider aware with order made rr5 and carried out. 21:30 Reassessment: Patient appears in no apparent distress at this time. Patient is alert, rr5 oriented x 3, equal unlabored respirations, skin warm/dry/pink. Patient states feeling better. Patient states symptoms have improved. 22:30 Reassessment: Patient appears in no apparent distress at this time. awaiting for rr5 acceptance from other hospital. 23:30 Reassessment: Patient appears in no apparent distress at this time. Patient is alert, rr5 oriented x 3, equal unlabored respirations, skin warm/dry/pink. 04/03 00:30 Reassessment: Patient appears in no apparent distress at this time. Patient is alert, rr5 oriented x 3, equal unlabored respirations, skin warm/dry/pink. complaining of headache, ED provider aware. 01:30 Reassessment: Patient appears in no apparent distress at this time. Patient is alert, rr5 oriented x 3, equal unlabored respirations, skin warm/dry/pink. Patient states feeling better. Patient states symptoms have improved. 02:30 Reassessment: Patient appears in no apparent distress at this time. Patient and/or rr5 family updated on plan of care and expected duration. Pain level reassessed. 03:50 Reassessment: Patient appears in no apparent distress at this time. Patient is alert, rr5 oriented x 3, equal unlabored respirations, skin warm/dry/pink. complaint of unable to sleep, ED provider aware with order made and carried out. 04:30 Reassessment: Patient appears in no apparent distress at this time. No changes from rr5 previously documented assessment. 05:50 Reassessment: Patient appears in no apparent distress at this time. Patient is alert, rr5 oriented x 3, equal unlabored respirations, skin warm/dry/pink. on semi del cid's position playing games on her phone, no complaints made. 06:30 Reassessment: Patient appears in no apparent distress at this time. No changes from rr5 previously documented assessment. Patient is alert, oriented x 3, equal unlabored respirations, skin warm/dry/pink. 07:55 General: Appears in no apparent distress. Behavior is calm, cooperative. Pain: iw Complains of pain in occipital area and right parietal area and left parietal area Pain currently is 9 out of 10 on a pain scale. Neuro: Level of Consciousness is awake, alert, obeys commands, Oriented to person, place, time, situation, Moves all extremities. Full function Gait is steady, Speech is normal, Facial symmetry appears normal, Reports headache Denies weakness. Cardiovascular: Capillary refill < 3 seconds in bilateral fingers Patient's skin is warm and dry. Respiratory: Respiratory effort is even, unlabored, Respiratory pattern is regular, symmetrical. GI: Abdomen is non-distended, Abd is soft and non tender X 4 quads. Musculoskeletal: Range of motion: intact in all extremities. 09:01 Reassessment: Patient appears in no apparent distress at this time. Patient and/or iw family updated on plan of care and expected duration. Pain level reassessed. Patient is alert, oriented x 3, equal unlabored respirations, skin warm/dry/pink. 11:03 Reassessment: Patient appears in no apparent distress at this time. Patient and/or iw family updated on plan of care and expected duration. Pain level reassessed. Patient is alert, oriented x 3, equal unlabored respirations, skin warm/dry/pink. pt states her headache is coming back and also is requesting nicotine patch. 12:02 Reassessment: [facility] transfer center has called, verifying pt condition and sg requesting if this transfer is still non emergent per EMTALA... updated on pt condition, still pending a transfer, told that transfer center coordinator that I do not know the status of the transfer, instructed that this transfer remains the same so whatever status they initiated the transfer as is what the transfer status remains, dental office coordinator stated understanding. 12:32 Reassessment: Patient appears in no apparent distress at this time. Patient and/or iw family updated on plan of care and expected duration. Pain level reassessed. Patient is alert, oriented x 3, equal unlabored respirations, skin warm/dry/pink. pt sitting up- eating lunch. 13:30 Reassessment: Patient appears in no apparent distress at this time. Patient and/or iw family updated on plan of care and expected duration. Pain level reassessed. Patient is alert, oriented x 3, equal unlabored respirations, skin warm/dry/pink. Patient states feeling better. Vital Signs: 04/02 09:16 BP 142 / 109; Pulse 88; Resp 16; Temp 98.1; Pulse Ox 100% on R/A; Pain 9/10; bb 11:27 BP 132 / 81; Pulse 77; Resp 18; Pulse Ox 98% on R/A; ph 13:05 BP 123 / 78; Pulse 68; Resp 18; Pulse Ox 98% on R/A; ph 17:15 BP 145 / 86; Pulse 67; Resp 16; Pulse Ox 99% on R/A; ph 19:00 BP 134 / 82; Pulse 68; Resp 18; Pulse Ox 99% on R/A; wh 20:00 BP 125 / 84; Pulse 71; Resp 18; Pulse Ox 98% on R/A; wh 21:00 BP 120 / 69; Pulse 75; Resp 19; Pulse Ox 99% ; rr5 22:00 BP 125 / 76; Pulse 72; Resp 19; Pulse Ox 98% ; rr5 23:00 BP 101 / 60; Pulse 64; Resp 16; Pulse Ox 99% ; rr5 11/12 00:00 BP 106 / 55; Pulse 76; Resp 16; Pulse Ox 98% ; rr5 01:00 BP 111 / 70; Pulse 69; Resp 15; Pulse Ox 98% ; rr5 02:00 BP 102 / 62; Pulse 64; Resp 17; Pulse Ox 100% ; rr5 03:00 BP 105 / 62; Pulse 68; Resp 17; Pulse Ox 99% ; rr5 03:53 BP 107 / 82; Pulse 63; Resp 18; Temp 98; Pulse Ox 99% ; rr5 06:00 BP 110 / 70; Pulse 69; Resp 19; Pulse Ox 99% ; rr5 08:00 BP 120 / 73; Pulse 65; Resp 16; Pulse Ox 98% on R/A; iw 11:02 BP 100 / 67; Pulse 69; Resp 16; Pulse Ox 98% on R/A; Pain 7/10; iw ED Course: 04/02 09:10 Patient arrived in ED. ds1 09:19 Triage completed. bb 09:24 Ernesto Carrera PA is PHCP. jmm 09:24 Gurpreet Suarez MD is Attending Physician. jmm 09:43 CT completed. Patient tolerated procedure well. Patient moved to CT via wheelchair. jg6 09:44 CT Head Brain wo Cont In Process Unspecified. EDMS 10:30 Anais Galvez, RN is Primary Nurse. ph 10:35 Arm band placed on Patient placed in an exam room, on a stretcher. ph 10:35 Patient has correct armband on for positive identification. Bed in low position. Call ph light in reach. Side rails up X 1. 10:50 Initial lab(s) drawn, by me, sent to lab. Inserted saline lock: 22 gauge in left em antecubital area, using aseptic technique. Blood collected. 13:14 initiated transfer to [facility]. bd 13:43 talked to Cecilio at [facility] transfer [place], they are waiting on a neuro bed to become bd available. 16:12 talked to Vince at [facility], still waiting on a be to become available. bd 19:24 No provider procedures requiring assistance completed. Patient transferred, IV remains ph in place. 20:06 talked to Amanda at [facility], still waiting on bed to become available. mt 20:15 Inserted saline lock: 20 gauge in right wrist, using aseptic technique. IV rr5 discontinued, intact, bleeding controlled, No redness/swelling at site. Pressure dressing applied, left line removed. 21:57 contacted Bridget at [facility], stated we are still waiting on a bed to become mt available. 11 00:53 contacted [facility] dental office coordinator, still waiting on a bed to become available. mt 07:56 Primary Nurse role handed off by Anais Galvez, RN iw 07:56 Claire Fritz, RN is Primary Nurse. iw 08:27 talked to Gerson Casanova at [facility], "still waiting on a bed". bd 09:12 Inserted saline lock: 20 gauge in right antecubital area, using aseptic technique. dh3 14:26 pt accepted in transfer to [facility] by dr Flower,admin approval given by ricardo Ny. Administered Medications: 04/02 10:55 Drug: diphenhydrAMINE 12.5 mg Route: IVP; Site: left antecubital; ph 19:20 Follow up: Response: No adverse reaction ph 10:55 Drug: NS 0.9% 250 ml Route: IV; Rate: bolus; Site: left antecubital; ph 10:56 Drug: Reglan 10 mg Route: IVP; Site: left antecubital; ph 19:19 Follow up: Response: No adverse reaction ph 14:44 Drug: Zofran (Ondansetron) 4 mg Route: IVP; Site: left antecubital; ph 19:20 Follow up: Response: No adverse reaction ph 14:45 Drug: morphine 2 mg Route: IVP; Site: left antecubital; ph 18:35 Drug: morphine 2 mg Route: IVP; Site: left antecubital; ph 19:20 Follow up: Response: No adverse reaction; Pain is decreased ph 20:23 Drug: morphine 2 mg {Note: rass 0.} Route: IVP; Site: right wrist; rr5 04/03 00:17 Follow up: Response: No adverse reaction; Pain is decreased; RASS: Alert and Calm (0) wh 00:17 Drug: morphine 2 mg {Note: RASS 0.} Route: IVP; Site: right wrist; wh 01:30 Follow up: Response: No adverse reaction; Pain is decreased; RASS: Alert and Calm (0) rr5 03:52 Drug: Benadryl 12.5 mg Route: IVP; Site: right wrist; rr5 04:50 Follow up: Response: No adverse reaction rr5 07:54 Drug: morphine 2 mg Route: IVP; Site: right wrist; iw 10:31 Drug: Atarax 50 mg Route: PO; hb 11:29 Drug: Nicotine 21 mg/24 hr 1 patches {Note: right arm.} Route: Transdermal; Site: iw affected area; 11:30 Drug: morphine 2 mg Route: IVP; Site: right antecubital; iw 16:03 Drug: morphine 2 mg Route: IVP; Site: right antecubital; iw Outcome: 04/02 11:00 ER care complete, transfer ordered by MD. renee 04/03 16:05 Transferred by ground EMS to [facility], Transfer form completed. iw X-rays sent w/ patient. Condition: good Discharge instructions given to patient, Instructed on the need for transfer, Demonstrated understanding of instructions. 16:06 Patient left the ED. iw Addendum: 04/07/2020 08:49 Addendum: COVID-19 Result: Negative result given to RN to notify pt. Notified pt of s s negative COVID 19 swab results. Pt advised that even with a negative test result they should remain in isolation until symptom free for 3 days without medication. Pt also advised to return to the ED for worsening symptoms. Signatures: Dispatcher [employer] EDMS Xochitl Mcdowell Steven, RN Ernesto Bennett PA PA jmm Munoz, Edgar, RN GREG em Kandace Zavala ds1 Maricarmen Rocha RN GREG bb Claire Fritz RN RN Aracely Carlson RN RN Anais Galvez RN RN Elyl Jaramillo RN GREG Jas, [facility], Ana 3 Lei Zheng Jaziel, Beverly 6 Zaid Polanco RN RN rr5 Corrections: (The following items were deleted from the chart) 04/02 09:19 09:16 Chief complaint: bb bb 20:24 20:14 Reassessment: Patient appears in no apparent distress at this time. No changes wh from previously documented assessment. Patient and/or family updated on plan of care and expected duration. Pain level reassessed. Patient is alert, oriented x 3, equal unlabored respirations, skin warm/dry/pink. wh 21:58 21:57 Bridget at [facility], stated we are still waiting on a bed to become available [facility] 04/03 03:55 00:30 Reassessment: Patient appears in no apparent distress at this time. No changes rr5 from previously documented assessment. rr5
[2020-04-02 11:08] LABS: Absolute Lymphocytes (CBC) 2.9 K/uL (0.7-4.9); Basophils % 1.2 % (0-1.3); Hematocrit 41.2 % (36.0-45.0); Lymphocytes % 41.6 % (15.3-44.8); MPV 8.1 fL (7.6-11.3); Protime INR 0.97
[2020-04-02 11:21] LABS: Albumin 3.6 g/dL (3.4-5.0); Bilirubin Total 0.4 mg/dL (0.2-1.0); Protein, Total 7.5 g/dL (6.4-8.2)
[2020-04-02 11:29] LABS: Urine Blood NEGATIVE (NEG); Urine Glucose NEGATIVE (NEG); Urine Protein NEGATIVE (NEG); Urine Specific Gravity 1.025 (1.005-1.030); Urine pH 7.5 (5.0-7.0)
[2020-04-02] MEDS ORDERED: ONDANSETRON 4 MG/2 ML VIAL ONE (14:53)
[2020-04-02] MEDS ORDERED: MORPHINE 2 MG/ML SYR ONE ×3 (14:53→20:31)
--- NOTE | 2020-04-02 18:04 | EKG ---
Test Date: 2020-04-02 Test Time: 11:37:17 [employer]: MARLEN MEASUREMENT RESULTS: Intervals: Rate: 69 MN: 152 QRSD: 84 QT: 432 QTc: 462 [place]: P: 63 MN: 152 QRS: 90 T: 75 INTERPRETIVE STATEMENTS: Normal sinus rhythm Rightward axis Borderline ECG Compared to ECG 03/12/2020 21:36:03 Right-axis deviation now present Electronically Signed On 04-02-20 18:02:33 DIRECTOR FUNDRAISING by Sánchez Iverson
[2020-04-02] MEDS ORDERED: ASPIRIN 81 MG CHEWABLE TABLET ONE (18:38)
[2020-04-03] MEDS ORDERED: MORPHINE 2 MG/ML SYR ONE ×4 (00:19→16:11)
[2020-04-03] MEDS ORDERED: DIPHENHYDRAMINE 50 MG/ML VIAL ONE (04:03)
[2020-04-03] MEDS ORDERED: hydrOXYzine HCL 25 MG TAB ONE (10:40)
[2020-04-03] MEDS ORDERED: NICOTINE 21 MG/PAT TD ONE (11:26)
[2020-04-03 19:11] VITALS: TEMP 98
[2020-04-03 19:14] VITALS: O2SAT 98
[2020-04-03 19:20] VITALS: BP 100/67
== END 2020-04-03 16:06 | disposition short-term general hospital (02) ==
LOC: ER 09:09
DX: G91.9 Hydrocephalus, unspecified (principal); Z20.828 Contact with and (suspected) exposure to other viral communicable diseases; F17.210 Nicotine dependence, cigarettes, uncomplicated; Z85.3 Personal history of malignant neoplasm of breast; Z88.0 Allergy status to penicillin; Z88.6 Allergy status to analgesic agent
CPT/HCPCS: 36415; 70450; 80053; 81003; 85025; 85610; 93005; 99285; J1200; J2270; J2405; J2765; J7050; U0002

== ENCOUNTER 2020-09-06 18:13 | Emergency (ER) | payer SELFPAY ==
--- OUTSIDE RECORDS SUMMARY | 2020-09-06 18:17 | XMS REPORT | Continuity of Care Document ---
:1970 Author Organization [facility] t Address [address] [place] [address] Care Team Providers Name Role Phone Asked, Pcp Primary Care Physician Unavailable Cyrus LEWIS Attending Clinician Kayla GARZA Attending Clinician Unavailable Chaz Andrews MD Attending Clinician [phone] Andrea Mao MD Attending Clinician CHAZ ANDREWS Attending Clinician Unavailable Sunday GAMBOA Attending Clinician Colin Neal MD Attending Clinician Essence Rodríguez MD Attending Clinician Nora Nichole MD Attending Clinician Jaja Estevez MD Attending Clinician Unavailable Abbi Jacobsen MD Attending Clinician Nathan Osei MD Attending Clinician Unavailable SUNDAY Attending Clinician Unavailable MOOKIE BULLARD Attending Clinician Unavailable CHAZ ANDREWS Admitting Clinician Unavailable NORA NICHOLE Admitting Clinician Unavailable Problems Condition Condition Condition Status Onset Resolution Last Treating Co mments Source Name Details Category Date Date Treatment Clinician Date Other Other Disease Active 2019-05 [facility] [address] hydrocepha hydrocepha Kimi kes - rebekah rebekah 00:00: Medical 00 Center Allergies, Adverse Reactions, Alerts Allergy Allergy Status Severity Reaction(s) Onset Inactive Treating Comm ents Source Name Type Date Date Clinician Penicill Drug Active 2019-05 Patient [facility] [address] ins Allergy stated, [facility] - 00:[facility]: [...] Comments Source History of tobacco Cigarette Smoker [facility] - use [facility] History [facility] - Alcohol Binge Medical [facility] Sex Assigned At [facility] Tobacco use and 2020-04-13 2020-04-[address] [facility] kes - exposure 00:00:00 00:00:00 [facility] Alcohol intake 2020-04-13 2020-04-13 [facility] (finding[facility] History [facility] 2020-03-18 2020-03-[address] [facility] - Alcohol Frequency 00:00:00 00:00:00 Medical Center History SDUT 2020-03-18 2020-03-[address] [facility] - [facility] Std Drinks 00:00[facility]00 [facility] Tobacco Comment 2020-03-18 2020-03-18 1/2 pack a day [facility] Center Cigarettes smoked 2019-02-18 2019-02-18 [place] current (pack per 00:00:00 00:00:[address] day) - Reported Smoking Status Start Date Stop Date Source Current every day smoker 2020-04-13 00:00:00 [facility] Medications Ordered Filled Start Stop Current Ordering Indication Dosage Frequency Signature Comments Components Source Medication Medication Date Date Medication? Clinician (SIG) Name Name acetaminoph 2019-05 Yes 1{tbl} Take [address] en-codeine 1-17 tablet by Helio Castillo (TYLENOL 00:00: mouth Medical #3) 300-30 00 every 6 Center mg per (six) tablet hours as needed. HYDROcodone 2019-05 No 1{tbl} Take [address] -acetaminop 0-28 11-07 tablet by Kimi castro (NORCO 00:00: 23:59 mouth Medic al 5-325) 00 :00 every 6 Center 5-325 mg (six) per tablet hours as needed for Pain for up to 10 days. Max Daily Amount: 4 tablets Vital Signs Vital Name Observation Time Observation Value Comments Source Systolic blood 2020-04-04 16:33:00 124 mm[Hg] [facility] Diastolic blood 2020-04-04 16:33:00 77 mm[Hg] [facility] Heart rate 2020-04-04 16:33:00 71 /min [facility] Body temperature 2020-04-04 16:33:00 35.89 Marika [facility] Respiratory rate 2020-04-04 16:33:00 16 /min [facility] Oxygen saturation in 2020-04-04 16:33:00 98 /min [facility] Arterial blood by Medical Ce nter Pulse oximetry Body height 2020-04-04 15:00:00 170.2 cm [facility] Body weight 2020-04-04 15:00:00 77.7 kg [facility] BMI 2020-04-04 15:00:00 26.83 kg/m2 [facility] Procedures Procedure Date / Time Performing Clinician Source Performed CBC W/PLT COUNT & AUTO 2020-04-04 06:28:[address] [facility] BASIC METABOLIC PANEL (7) 2020-04-04 06:28:00 Festus Mao [facility] HEPATIC FUNCTION PANEL 2020-04-04 06:28:00 Festus Mao [facility] I [facility] CT BRAIN WITHOUT IV 2020-03-18 19:57:00 Tacos Nguyen [facility] VENTRICULOSTOMY,THIRD 2020-03-18 16:15:00 Tavon Estevez OsmanDavid [facility] VENTRICLE NEUROENDOSCOPIC [facility] STEREOTACTIC SCREEN, URINE 2020-03-18 14:37:00 Socrates Jacobsen [facility] ABORH, MANUAL 2020-03-17 16:18:00 Dinah Mancia [facility] PT/APTT 2020-03-17 14:50:00 Krzysztof Velasquez [facility] TYPE AND SCREEN, AUTOMATED 2020-03-17 14:50:00 Malorie Velasquez [facility] ECG 12-LEAD 2020-03-17 03:47:24 Karena Neal [facility] XR CHEST 1 VIEW 2020-03-15 12:58:00 Karena Neal [facility] PORTABLE/BEDSIDE [facility] MR BRAIN WITH & WITHOUT IV 2020-03-14 21:57:00 Karena Neal [facility] CBC W/PLT COUNT & AUTO 2020-03-14 05:35:00 Karena Neal [facility] I [facility] BASIC METABOLIC PANEL (7) 2020-03-14 05:35:00 Karena Neal [facility] HEPATIC FUNCTION PANEL 2020-03-14 05:35:00 Karena Neal [facility] MR BRAIN WITHOUT IV 2020-03-13 16:32:00 Hua Brand [facility] 2D ECHO W/ DOPPLER 2020-03-13 11:57:44 Laura Nichole [facility] (CW/PW/COLOR) [facility] URINALYSIS W/ MICROSCOPIC 2020-03-13 06:26:[address] [facility] SCREEN, URINE 2020-03-13 06:26:[address] [facility] COMPREHENSIVE METABOLIC 2020-03-13 05:32:00 Laura Nichole [facility] PANEL [facility] CBC W/PLT COUNT & AUTO 2020-03-13 05:32:00 Laura Nichole [facility] - DIFFERENTIAL [facility] MAGNESIUM 2020-03-13 05:32:00 Laura Nichole [facility] TSH/FREE T4 IF INDICATED 2020-03-13 05:32:00 Laura Nichole I [facility] SARS-COV2/RT-PCR ([facility] & 2020-03-13 05:27:00 Laura Nichole [facility] - REF LABS) [facility] Plan of Care Planned Activity Planned Date Details Comments Source Future Scheduled 2020-12-21 INFLUENZA VACCINE [place] [facility] 00:00:00 [code = INFLUENZA VACCINE] Future Scheduled 2020-05-[address] [facility] - Test 00:00:00 (12+) [code = [facility] Center DEPRESSION SCREENING (12+)] Future Scheduled 2020-01-22 INFLUENZA VACCINE (#1) [facility] Test 00:00:00 [code = INFLUENZA Medical Ce nter VACCINE (#1)] Future Scheduled 2019-11-06 BREAST CANCER [facility] Test 00:00:00 SCREENING [code = BREAST CANCER SCREENING] Future Scheduled 2019-11-06 COLONOSCOPY SCREENING [place] [facility] 00:00:00 [code = COLONOSCOPY SCREENING] Future Scheduled 2019-11-06 SHINGLES VACCINES (#1) [place] [facility] 00:00:00 [code = SHINGLES VACCINES (#1)] Future Scheduled 2019-11-06 SHINGLES VACCINES ([address] [facility] - Test 00:00:00 of 2) [code = SHINGLES Medic al Center VACCINES (1 of 2)] Future Scheduled [address] [facility] Test 00:00:00 (procedure) [code = [facility] Center 50905759] Future Scheduled [facility] malignant neoplasm of cervix (procedure) [code = 145218273] Future Scheduled [address] [facility] - Test 00:00:00 [facility] cervix (procedure) [code = 321903856] Future Scheduled 1988 DTAP/TDAP/TD VACCINES [facility] Test 00:00:00 (1 - Tdap) [code = Medical C enter DTAP/TDAP/TD VACCINES (1 - Tdap)] Future Scheduled 1987-11-06 HEPATITIS C SCREENING [facility] - Test 00:00:00 [code = HEPATITIS C Medical Center SCREENING] Future Scheduled 1987-11-06 Hepatitis C screening [place] [facility] 00:00:00 (procedure) [code = 471898305] Future Scheduled 1985 COVID-19 VACCINE (1) [facility] 00:00:00 [code = COVID-19 VACCINE (1)] Future Scheduled 1975-11-[address] [facility] - Test 00:00:00 0-64 YRS (1 of 1 - Medical C enter PPSV23) [code = PNEUMOCOCCAL VACCINE 0-64 YRS (1 of 1 - PPSV23)] Future Scheduled [address] [facility] - Test 00:00:00 malignant [facility] breast (procedure) [code = 425217666] Future Scheduled [address] [facility] - Test 00:00:00 [facility] colon (procedure) [code = 531094099] Results Test Description Test Time Test Comments Results Result Comments Source Basic metabolic panel 2020-04-04 10:45:00 Test Item Value Reference Range Interpretation Comme nts Sodium (test code = 135 meq/L 136-145 L 2951-2) Potassium (test code = 4.4 meq/L 3.5-5.1 Speci men slightly 2823-3) hemolyzed Chloride (test code = 106 meq/L 98-107 2075-0) CO2 (test code = 2027-9) 21 meq/L 22-29 L BUN (test code = 3094-0) 15 mg/dL 7-21 Creatinine (test code = 0.80 mg/dL 0.57-1.25 Spec imen slightly 2160-0) hemolyzed Glucose (test code = 88 mg/dL 70-105 2345-7) Calcium (test code = 8.6 mg/dL 8.4-10.2 81691-4) EGFR (test code = 33055-7) 76 mL/min/1.73 sq m ESTIMATED GFR IS NOT ACCURATE CREATININE RONALD ROMINA IN PREDICTING GLOMERULAR FILT RATION RATE. ESTIMATED GFR IS NOT APPLICAB LE FOR DIALYSIS PATIEN TS. ALYSSA (test code = ALYSSA) Nut Grader ID - OSVALDO C Lab Interpretation (test Abnormal code = 34367-3) [facility] [id number] 10:45:00 Test Item Value Reference Range Interpretation Comments Protein, Total (test 6.5 See_Comment Specime n slightly code = 2885-2) hemolyzed [Automated message] The system which generated this result transmit kenny reference range : 6.0 - 8.3 gm/dL . The reference range was not u sed to interpret th is result as normal/abnormal . Albumin (test code = 3.3 g/dL 3.5-5 L Specime n slightly 31691-2) hemolyzed Total Bilirubin (test 0.5 mg/dL 0.2-1.2 Specim en slightly code = 1975-2) hemolyzed Bilirubin, Direct 0.3 mg/dL 0.1-0.5 Specimen s lightly (test code = 1968-7) hemolyz ed Alkaline Phosphatase 68 U/L 40-150 (test code = 6768-6) AST (test code = 54 U/L 5-34 H Specimen sl ightly 1920-8) hemolyzed ALT (test code = 37 U/L 6-55 Specimen sl ightly 1742-6) hemolyzed ALYSSA (test code = ALYSSA) Nut Grader ID - OSVALDO C Lab Interpretation Abnormal (test code = 55815-5) [facility] [id number] 10:45:00 Test Item Value Reference Range Interpretation Comments SODIUM (BEAKER) 135 meq/L 136-145 L (test code = 381) POTASSIUM (BEAKER) 4.4 meq/L 3.5-5.1 Specimen slightly (test code = 379) hemolyzed CHLORIDE (BEAKER) 106 meq/L 98-107 (test code = 382) CO2 (BEAKER) (test 21 meq/L 22-29 L code = 355) BLOOD UREA NITROGEN 15 mg/dL 7-21 (BEAKER) (test code = 354) CREATININE (BEAKER) 0.80 mg/dL 0.57-1.25 Specimen slightly (test code = 358) hemolyzed GLUCOSE RANDOM 88 mg/dL 70-105 (BEAKER) (test code = 652) CALCIUM (BEAKER) 8.6 mg/dL 8.4-10.2 (test code = 697) EGFR (BEAKER) (test 76 mL/min/1.73 ESTIMA KENNY GFR IS code = 1092) sq m NOT ACCURATE CREATININE CLEARANCE IN PREDICTING GLOMERULAR FILTRATION RATE . ESTIMATED GFR I S NOT APPLICABLE FOR DIALYSIS PATIEN TS. Nut Grader ID - OSVALDO CHEPATIC FUNCTION [id number] 10:45:00 Test Item Value Reference Range Interpretation Comments TOTAL PROTEIN (BEAKER) 6.5 gm/dL 6.0-8.3 Speci men slightly (test code = 770) hemolyzed ALBUMIN (BEAKER) (test 3.3 g/dL 3.5-5.0 L Speci men slightly code = 1145) hemolyzed BILIRUBIN TOTAL 0.5 mg/dL 0.2-1.2 Specimen sli ghtly (BEAKER) (test code = hemoly zed 377) BILIRUBIN DIRECT 0.3 mg/dL 0.1-0.5 Specimen sl ightly (BEAKER) (test code = hemoly zed 706) ALKALINE PHOSPHATASE 68 U/L 40-150 (BEAKER) (test code = 346) AST (SGOT) (BEAKER) 54 U/L 5-34 H Specimen slightly (test code = 353) hemolyzed ALT (SGPT) (BEAKER) 37 U/L 6-55 Specimen slightly (test code = 347) hemolyzed Nut Grader ID - OSVALDO CCBC W/PLT COUNT & AUTO [id number] 07:25:00 Test Item Value Reference Range Interpretation Comments WHITE BLOOD CELL COUNT 8.8 K/ L 3.5-10.5 Pleas e disregard (BEAKER) (test code = result s. Instrument 775) auto-verified clotted CBC w/d iff. [id number] notifi ed to redraw.This is a corrected resul t. Previous result was 8.8 K/ L on 04/04/2020 at 0 [facility] RED BLOOD CELL COUNT 4.18 M/ L 3.93-5.22 Please disregard (BEAKER) (test code = result s. Instrument 761) auto-verified clotted CBC w/d iff. [id number] notifi ed to redraw.This is a corrected resul t. Previous result was 4.18 M/ L on 04/04/2020 at 0 [facility] HEMOGLOBIN (BEAKER) 13.5 GM/DL 11.2-15.7 Please d isregard (test code = 410) results. I nstrument auto-verified clotted CBC w/d iff. [id number] notifi ed to redraw.This is a corrected resul t. Previous result was 13.5 GM/DL on 04/04/2020 at 0 [facility] HEMATOCRIT (BEAKER) 42.2 % 34.1-44.9 Please d isregard (test code = 411) results. I nstrument auto-verified clotted CBC w/d iff. [id number] notifi ed to redraw.This is a corrected resul t. Previous result was 42.2 % on 04/04 at 0704 [facility] MEAN CORPUSCULAR VOLUME 101.0 fL 79.4-94.8 H Plea se disregard (BEAKER) (test code = result s. Instrument 753) auto-verified clotted CBC w/d iff. B#[id number] notifi ed to redraw.This is a corrected resul t. Previous result was 101.0 fL on 04/04/2020 at 0 704 [facility] MEAN CORPUSCULAR 32.3 pg 25.6-32.2 H Please disr egard HEMOGLOBIN (BEAKER) results. Instrument (test code = 751) auto-verif ied clotted CBC w/d iff. [id number] notifi ed to redraw.This is a corrected resul t. Previous result was 32.3 pg on 04/04/2020 at 0 704 [facility] MEAN CORPUSCULAR 32.0 GM/DL 32.2-35.5 L Please disr egard HEMOGLOBIN CONC results. Ins trument (BEAKER) (test code = auto-v erified 752) clotted CBC w/d iff. [id number] notifi ed to redraw.This is a corrected resul t. Previous result was 32.0 GM/DL on 04/04/2020 at 0 704 [facility] RED CELL DISTRIBUTION 13.2 % 11.7-14.4 Please disregard WIDTH (BEAKER) (test results . Instrument code = 412) auto-verified clotted CBC w/d iff. B#[id number] notifi ed to redraw.This is a corrected resul t. Previous result was 13.2 % on 04/04 at 0[facility] PLATELET COUNT (BEAKER) 56 K/CU MM 150-450 L Plea se disregard (test code = 756) results. I nstrument auto-verified clotted CBC w/d iff. B#[id number] notifi ed to redraw.This is a corrected resul t. Previous result was 56 K/CU MM on 04/04/2020 at 0 704 [facility] MEAN PLATELET VOLUME 10.9 fL 9.4-12.3 Please disregard (BEAKER) (test code = result s. Instrument 754) auto-verified clotted CBC w/d iff. [id number] notifi ed to redraw.This is a corrected resul t. Previous result was 10.9 fL on 04/04/2020 at 0 704 [facility] NUCLEATED RED BLOOD 0 /100 WBC 0-0 This is a corrected CELLS (BEAKER) (test result. Previous code = 413) result was 0 /1 00 WBC on 04/04/20 20 at 0704 [facility] NEUTROPHILS RELATIVE 68 % Please disregard PERCENT (BEAKER) (test resul ts. Instrument code = 429) auto-verified clotted CBC w/d iff. [id number] notifi ed to redraw.This is a corrected resul t. Previous result was 68 % on 020 at 0704 [facility] LYMPHOCYTES RELATIVE 24 % Please disregard PERCENT (BEAKER) (test resul ts. Instrument code = 430) auto-verified clotted CBC w/d iff. [id number] notifi ed to redraw.This is a corrected resul t. Previous result was 24 % on 020 at 0704 [facility] MONOCYTES RELATIVE 6 % Please di sregard PERCENT (BEAKER) (test resul ts. Instrument code = 431) auto-verified clotted CBC w/d iff. [id number] notifi ed to redraw.This is a corrected resul t. Previous result was 6 % on 04/04/20 20 at 0704 [facility] EOSINOPHILS RELATIVE 1 % Please disregard PERCENT (BEAKER) (test resul ts. Instrument code = 432) auto-verified clotted CBC w/d iff. [id number] notifi ed to redraw.This is a corrected resul t. Previous result was 1 % on 04/04/20 20 at 0704 [facility] BASOPHILS RELATIVE 1 % Please di sregard PERCENT (BEAKER) (test resul ts. Instrument code = 437) auto-verified clotted CBC w/d iff. [id number] notifi ed to redraw.This is a corrected resul t. Previous result was 1 % on 04/04/20 20 at 0704 [facility] NEUTROPHILS ABSOLUTE 6.01 K/ L 1.56-6.13 Please disregard COUNT (BEAKER) (test results . Instrument code = 670) auto-verified clotted CBC w/d iff. B#[id number] notifi ed to redraw.This is a corrected resul t. Previous result was 6.01 K/ L on 04/04/2020 at 0 704 [facility] LYMPHOCYTES ABSOLUTE 2.11 K/ L 1.18-3.74 Please disregard COUNT (BEAKER) (test results . Instrument code = 414) auto-verified clotted CBC w/d iff. [id number] notifi ed to redraw.This is a corrected resul t. Previous result was 2.11 K/ L on 04/04/2020 at 0 704 [facility] MONOCYTES ABSOLUTE 0.54 K/ L 0.24-0.36 H Please di sregard COUNT (BEAKER) (test results . Instrument code = 415) auto-verified clotted CBC w/d iff. B#[id number] notifi ed to redraw.This is a corrected resul t. Previous result was 0.54 K/ L on 04/04/2020 at 0 704 [facility] EOSINOPHILS ABSOLUTE 0.10 K/ L 0.04-0.36 Please disregard COUNT (BEAKER) (test results . Instrument code = 416) auto-verified clotted CBC w/d iff. [id number] notifi ed to redraw.This is a corrected resul t. Previous result was 0.10 K/ L on 04/04/2020 at 0 704 [facility] BASOPHILS ABSOLUTE 0.05 K/ L 0.01-0.08 Please di sregard COUNT (HAILEE) (test results . Instrument code = 417) auto-verified clotted CBC w/d iff. B#[id number] notifi ed to redraw.This is a corrected resul t. Previous result was 0.05 K/ L on 04/04/2020 at 0 704 [facility] IMMATURE 0 % 0-1 Please disregar d GRANULOCYTES-RELATIVE result s. Instrument PERCENT (HAILEE) (test auto- verified code = 2801) clotted CBC w/d iff. B#[id number] notifi ed to redraw.This is a corrected resul t. Previous result was 0 % on 04/04/20 20 at 0704 [facility] CBC with platelet count + automated [id number] 07:25:00WBCComment: Please disregard results. Instrument auto-verified clotted CBC w/diff. B#[id number] notifiedto redraw. This is a corrected result. Previous result was 8.8 K/L on 04/04/[address] [place], [place] [address]RBCComment: Please disregard results. Instrument auto-verified clotted CBC w/diff. B#[id number] notified to redraw. This is a corrected result. Previous result was 4.18 M/L on 04/04/[address] [place], [place] [address]HemoglobinComment: Please disregardresults. Instrument auto-verified clotted CBC w/diff. B#[id number] notified to redraw. This is a corrected result. Previous result was 13.5 GM/DL on 04/04/[address] [place], [place] [address]HematocritComment: Please disregard results. Instrument auto- verified clotted CBC w/diff. B#[id number] notified to redraw. This is a corrected result. Previous result was 42.2 % on 04/04/[address] [place], [place] [address]MCVComment: Please disregard results. Instrument auto-verified clotted CBC w/diff. B#[id number] notified to redraw. This is a corrected result. Previous result was 101.0 fL on 04/04/[address] [place], [place] [address]MCHComment: Please disregard results. Instrument auto-verified clotted CBC w/diff. B#[id number] notified to redraw. This is a corrected result. Previous result was 32.3 pg on 04/04/[address] [place], [place] [address]MCHCComment: Please disregard results. Instrument auto-verified clotted CBC w/diff. B#[id number] notified to redraw. This is a corrected result. Previous result was 32.0 GM/DL on 04/04/[address] [place], [place] [address]RDWComment: Please disregard results. Instrument auto-verified clotted CBC w/diff. B#[id number] notified to redraw. This is a corrected result. Previous result was 13.2 % on 04/04/[address] [place], [place] [address]PlateletsComment: Please disregard results. Instrument auto- verified clotted CBC w/diff. B#[id number] notified to redraw. This is a corrected r esult. Previous result was 56 K/CU MM on 04/04/[address] [place], [place] [address]MPVComment: Please disregard results. Instrument auto- verified clotted CBC w/diff. B#[id number] notified to redraw. This is a corrected result. Previous result was 10.9 fL on 04/04/[address] [place], [place] [address]nRBCComment: This is a corrected result. Previous result was 0 /100 WBC on 04/04/[address] [place], [place] [address]% NeutrosComment: Please disregardresults. Instrument auto-verified clotted CBC w/diff. B#[id number] notified to redraw. This is a corrected result. Previous result was 68 % on 04/04/[address] [place], [place] [address]%LymphsComment: Please disregard results. Instrument auto-verified clotted CBC w/diff. B#[id number] notified to redraw. This is a corrected result. Previous result was 24 % on 04/04/[address] [place] [address]% MonosComment: Please disregard results. Instrument auto-verified clotted CBC w/diff. B#[id number] notified to redraw. This is a corrected result. Previous result was 6 % on 04/04/[address] [place] [address]% EosComment: Please disregard results. Instrument auto-verified clotted CBC w/diff. B#[id number] notified to redraw. This is a corrected result. Previous result was 1 % on 04/04/[address] [place] [address]% BasoComment: Please disregard results. Instrument auto-verified clotted CBC w/diff. B#[id number] notified to redraw. This is a corrected result. Previous result was 1 % on 04/04/[address] [place] [address]# NeutrosComment: Please disregard results. Instrument auto- verified clotted CBC w/diff. B#[id number] notified to redraw. This is a corrected result. Previous result was 6.01 K/L on 04/04/[address] [place] [address]# LymphsComment: Please disregard results. Instrument auto-verified clotted CBC w/diff. B#[id number] notified to redraw. This is a corrected result. Previous result was 2.11 K/L on 04/04/[address] [place] [address]# MonosComment: Please disregard results. Instrument auto-verified clotted CBC w/diff. B#[id number] notified to redraw. This is a corrected result. Previous result was 0.54 K/L on 04/04/[address] [place] [address]# EosComment: Please disregard results. Instrument auto-verified clotted CBC w/diff. B#[id number] notified to redraw. This is a corrected result. Previous result was 0.10 K/Fredi 04/04/2020 at 0704 [facility]# BasoComment: Please disregard results. Instrument auto-verified clotted CBC w/diff. B#[id number] notified to redraw. This is a corrected result. Previous result was 0.05 K/L on 04/04/2020 at 0704 [facility] Granulocytes-RelativeComment: Please disregard results. Instrument auto-verified clotted CBCw/diff. B#[id number] notified to redraw. This is a corrected result. Previous result was 0 % on 04/04/[address] [place], [place] [address]CT, BRAIN, WITHOUT [id number] 20:08:00Status post [facility] : 1970 Sex: FFINAL REPORT CT, BRAIN, WITHOUT CONTRAST INDICATION: Hydrocephalus [...] are intact. IMPRESSION: Interval placement and subsequent removalof a right frontal approach ventriculostomy catheter. Ventricular caliber is unchanged. There is trace pneumocephalus. Signed: Mindy Bowlingort Verified Date/Time: 03/18/2020 20:08:27 CT brain without IV [id number] 20:08:00Interface, External Ris In - 03/18/2020 8:[address], BRAIN, WITHOUT CONTRAST INDICATION: Hydrocephalus [...] Osseous structures: Right frontal jacek hole with overlyingsoft tissue air and swelling. No fracture. No suspicious lesion. Paranasal sinuses and mastoid air cells: No evidence of sinusitis. Mastoids are clear. Orbital contents: Globes are intact. IMPRESSION: Interval placement and subsequent removal of a right frontal approach ventriculostomy catheter. Ventricular caliber is unchanged. There is trace pneumocephalus. Signed: Mindy Bowling MDReport Verified Date/Time: 03/18/2020 20:08:27 08:08 [facility] Screen, [id number] 14:52:00 Test Item Value Reference Range Interpretation Comments Preg Test, Ur (test code = 2112-1) Negative [facility], [id number] 14:52:00 Test Item Value Reference Range Interpretation Comments TEST URINE (BEAKER) (test Negative code = 583) ABORH, [id number] 17:05:00 Test Item Value Reference Range Interpretation Comments ABO Grouping (test code = 2588) O Rh Factor (test code = 2589) NEG [facility] screen, [id number] 16:01:00 Test Item Value Reference Range Interpretation Comments ABO/RH AUTOMATED (BEAKER) (test O NEGATIVE code = 2260) Ab Scrn (test code = 890-4) NEGATIVE [facility]PT/[id number] 15:24:00 Test Item Value Reference Interpretation Comments Range Protime (test code = 13.4 See_Comment [Autom ated 5902-2) message] The system which generated this result transmitted reference range : 11.9 - 14.2 seconds. The reference range was not used to interpret this result as normal/abnormal . INR (test code = 1.05 See_Comment [Automated 0511-6) message] The system which generated this result transmitted reference range : <=5.90. The reference range was not used to interpret this result as normal/abnormal . PTT (test code = 25.9 See_Comment [Automated 49145-3) message] The system which generated this result transmitted reference range : 22.5 - 36.0 seconds. The reference range was not used to interpret this result as normal/abnormal . ALYSSA (test code = Effective 10/18/2018: ALYSSA) PT Reference Range ChangeNew: 11.9-14.2 Previous: 11.7-14.7 RECOMMENDED COUMADIN/WARFARIN INR THERAPY RANGESSTANDARD DOSE: 2.0-3.0 Includes: PROPHYLAXIS for venous thrombosis, systemic embolization; TREATMENT for venous thrombosis and/or pulmonary embolus.HIGH RISK: Target INR is 2.5-3.5 for patients wiht mechanical heart valves. Lab Interpretation Normal (test code = 75862-3) [facility]PT/[id number] 15:24:00 Test Item Value Reference Range Interpretation [...] for patients wiht mechanical heart valves.ECG 12 [id number] 14:16:48 Interface, External Ris In - 03/17/2020 2:16 PM CDTVentricular Rate 67 BPMAtrial Rate 67 BPMP-R Interval 156 msQRS Duration 84 msQ-T Interval 424 msQTC Calculation(Bazett) 448 msP [place] 56 degreesR [place] 76 degreesT [place] 82 degreesNormal sinus rhythmNormal ECGNo previous ECGs availableConfirmed by JORGE KUHN MD, COBY ([id number]) on 03/17/2020 2:16:45 [facility]RAIN, [id number] 09:18:00Needs to include cine study to assess CSF flow through the aqueductUnlisted Reason for Exam - Click Yes and Enter Reason Below- >YesUnlisted Reason for Exam->Needs to include cine study to assess CSF flow through the aqueduct [facility] 1970 Sex: FFINAL REPORT MR, BRAIN, WITH \\T\\ WITHOUT CONTRAST INDICATION: [place] cephalusNeeds to include cine study to assess [...] attempted again Tuesday03/17/2020 following consultation with vendor account maintenance representative.If phase contrast images are added to this accession, this report may be addended. Signed: Mee Montemayor MDReport Verified Date/Time: 03/16/2020 09:18:26 Reading Location: [facility] C013V Neuro ReadingRoom MR brain without & with IV [id number] 09:18:00Interface, External Ris In - 03/16/2020 9:20 [...] be attempted again Tuesday03/17/2020 followingconsultation with vendor account maintenance representative. If phase contrast images are added to this accession, this report may be addended. Signed: Mee Montemayor MDReport Verified Date/Time: 03/16/2020 09:18:26 Reading Location: [address] Neuro Reading [facility] 1 VIEW, NON [id number] 13:48:00Reason for exam:->pre opShould this be performed at the bedside?->Yes [facility] : 1970 Sex: FFINAL [...] lung bases, likely atelectasis. Signed: Antonella Yañez JobspottingepStreetLight Data Verified Date/Time: 03/15/2020 13:48:00 Reading Location: [address] Body Reading Room XR chest 1 view portable / [id number] 13:48:00 Interface, External Ris In - 03/15/2020 [...] MDReport Verified Date/Time: 03/15/2020 13:48:00 Reading Location: [address] Body Reading Room Electronically signedby: ANTONELLA YAÑEZ MD on 03/15/2020 01:48 PM [facility] W/PLT COUNT & AUTO [id number] 06:54:00 Test Item Value Reference Range Interpretation [...] 0-1 PERCENT (BEAKER) (test code = 2801) BASIC METABOLIC [id number] 06:46:00 Test Item Value Reference Range Interpretation [...] 697) EGFR (BEAKER) (test 73 mL/min/1.73 ESTIMA KENNY GFR IS code = 1092) sq m NOT ACCURATE CREATININE CLEARANCE IN PREDICTING GLOMERULAR FILTRATION RATE . ESTIMATED GFR I S NOT APPLICABLE FOR DIALYSIS PATIEN TS. Nut Grader ID - EDASIHEPATIC FUNCTION [id number] 06:46:00 Test Item Value Reference Range Interpretation [...] (test code = 43 U/L 6-55 347) Nut Grader ID - EDASIMR, BRAIN, WITHOUT [id number] 18:03:00Needs to include cine study to assess CSF flow through the aqueduct Unlisted Reason for Exam - ClickYes and Enter Reason Below->Yes Unlisted Reason for Exam- >Needs to include cine study to assess CSF flow through the aqueduct Deos the patient have an implanted electronic device?->No [facility] : 1970 Sex: FFINAL [...] to sulci, and mild transependymal edema. Signed: Meservy, Mindy MDReport Verified Date/Time: 03/13/2020 18:03:00 MR brain without IV [id number] 18:03:00Interface, External Ris In - 03/13/2020 6:05 [...] edema. Signed: Mindy Bowling MDReport Verified Date/Time: 18:03:00 [facility]2D Echo W/Doppler(CW/PW/Color) 2020-03-13 17:29:26Ejection FractionSLEH ECHO HEARTLAB MKCKESSON CPACSInterface, External Ris In - 03/13/2020 5:29 PM CDTTransthoracic Echocardiography Report (TTE) Demographics Patient Name GLADYS RUSSO Date of Study 03/13/2020 FELIPE GenderFemale Visit Number [id number] Race Unknown Room Number 2447 Number Date of 1970 Referring Physician LAURA NICHOLE Age 49 year(s) [place]arr[place] Helper Juany Cortes [facility] Interpreting Cyrus Velasquez Physician Fellow Cyrus Barrett [...] LVOT CO: 5.42 l/min LVOT CI: 2.95 l/min/m^2CSan [facility]-CoV2/RT-PCR (Asymptomatic ONLY)2020-03-13 11:02:00 Test Item Value Reference Range Interpretation Comments SARS-COV2/RT-PCR Negative Not Detected, (test code = Negative, See 21449-6) external report for linked test SARS-COV-2 [facility] PERFORMING LAB (test code = 99104-0) ALYSSA (test code = Negative result for [...] of the Act. Fact Sheet for Healthcare Providers:https://www.[employer]/sites/default/f melvin/product/documents/F act_Sheet_HC_Providers_L vnh_PFFP-FgZ-6.pdf Fact Sheet for Healthcare Patients:https://www.404 Found!/sites/default/fi les/product/documents/Fa ct_Sheet_Patients_Lyra_S ARS-CoV-2.pdf Performing Laboratory:[facility] [place] [address] [place], [place] [address]ARS-COV2/RT-PCR ([facility])2020-03-13 11:02:00 Test Item Value Reference Range Interpretation Comments SARS-COV2/RT-PCR (test Negative Not Detected, Negative, code = 2041439) See external report for linked test SARS-COV-2 PERFORMING LAB [facility] (test code = 7306314) Negative result for this test determines that [...] 564(g) of the Act.Fact Sheet for Healthcare Providers:https://www.[employer].Beintoo/sites/default/files/product/documents/Fact_Shee y_AX_Awvluuqxs_Olhq_AQRZ-PoS-4.pdfFact Sheet for Healthcare Patients:https://www.[employer].com/sites/default/files/product/ documents/Rwkh_Kzsrc_Mhzdwagq_Qbwi_KUZE-SqG-8.pdfPerforming Laboratory:[facility], [place] [address]Fmujykxssz w/[id number] 07:57:00 Test Item Value Reference Range Interpretation Comments Color, UA (test code Yellow = 5778-6) Clarity, UA (test Hazy code = 5767-9) Specific [place], UA 1.021 1.001-1.035 (test code = 5811-5) pH, UA (test code = 7.0 5.0-8.0 5803-2) Protein, UA (test 20 mg/dL Negative A code = 92979-4) Glucose, UA (test Negative Negative code = 365) Ketones, UA (test 40 mg/dL Negative A code = 2514-8) Bilirubin, UA (test Negative Negative code = 18256-3) Blood, UA (test code Negative Negative = 10643-3) Nitrite, UA (test Positive Negative A code = 5802-4) Leukocytes, UA (test Moderate Negative A code = 5799-2) Urobilinogen, UA 0.2 mg/dL 0.2-1 (test code = 18036-2) RBC, UA (test code = 2 See_Comment [Autom ated 43282-1) message] The system which generated this result transmit kenny reference range : /HPF. The reference range was not used to interpret this result as normal/abnormal . WBC, UA (test code = 46 See_Comment [Autom ated 5821-4) message] The system which generated this result transmit kenny reference range : /HPF. The reference range was not used to interpret this result as normal/abnormal . Bacteria, UA (test Few code = 68097-9) Squam Epithel, UA 1 See_Comment [Automate d (test code = 89219-7) messag e] The system which generated this result transmit kenny reference range : /HPF. The reference range was not used to interpret this result as normal/abnormal . Specimen Source (test code = 2795) ALYSSA (test code = ALYSSA) Nut Grader ID - [auto]Nut Grader ID - tech Lab Interpretation Abnormal (test code = 05668-9) [facility] W/ [id number] 07:57:00 Test Item Value Reference Range Interpretation [...] = 516) SOURCE(BEAKER) (test code = 2795) Nut Grader ID - [auto]Nut Grader ID - techComprehensive metabolic [id number] 07:42:00 Test Item Value Reference Range Interpretation Comments Protein, Total (test 7.7 See_Comment [Autom ated code = 2885-2) message] The system which generated this result transmit kenny reference range : 6.0 - 8.3 gm/dL . The reference range was not u sed to interpret th is result as normal/abnormal . Albumin (test code = 4.0 g/dL 3.5-5 47957-7) Alkaline Phosphatase 73 U/L 40-150 (test code = 6768-6) Total Bilirubin (test 0.4 mg/dL 0.2-1.2 code = 1974-2) Sodium (test code = 136 meq/L 985-887 3707-2) Potassium (test code 3.9 meq/L 3.5-5.1 = 2823-3) Chloride (test code = 107 meq/L 98-107 5-0) CO2 (test code = 21 meq/L 22-29 L 8-9) BUN (test code = 14 mg/dL 7-21 3094-0) Creatinine (test code 0.78 mg/dL 0.57-1.25 = 2160-0) Glucose (test code = 115 mg/dL 70-105 H 2345-7) Calcium (test code = 8.8 mg/dL 8.4-10.2 52970-1) AST (test code = 71 U/L 5-34 H 1920-8) ALT (test code = 49 U/L 6-55 1742-6) EGFR (test code = 78 mL/min/1.73 [place] [address]-6) NOT ACCURATE CREATININE CLEARANCE IN PREDICTING GLOMERULAR FILTRATION RATE . ESTIMATED GFR I S NOT APPLICABLE FOR DIALYSIS PATIEN TS. ALYSSA (test code = ALYSSA) Nut Grader ID - AAHAMID Lab Interpretation Abnormal (test code = 02046-7) [facility] HospitalMagnesium2020-10-22 07:42:00 Test Item Value Reference Range Interpretation Comments Magnesium (test code = 2.0 mg/dL 1.6-2.6 56795-8) ALYSSA (test code = ALYSSA) Nut Grader ID - AAHAMID Lab Interpretation (test Normal code = 14986-6) [facility] HospitalCOMPREHENSIVE METABOLIC [id number] 07:42:00 Test Item Value Reference Range Interpretation [...] S NOT APPLICABLE FOR DIALYSIS PATIEN TS. Nut Grader ID - [id number] 07:42:00 Test Item Value Reference Range Interpretation Comments MAGNESIUM (BEAKER) (test code = 2.0 mg/dL 1.6-2.6 627) Nut Grader ID - AAHAMIDPREGNANCY SCREEN, [id number] 07:34:00 Test Item Value Reference Range Interpretation Comments TEST URINE (BEAKER) (test Negative code = 583) CBC W/PLT COUNT & AUTO [id number] 07:31:00 Test Item Value Reference Range Interpretation [...] (test code = 2801) TSH/Free T4 If [id number] 07:30:00 Test Item Value Reference Range Interpretation Comments TSH (test code = 0.363 See_Comment [Automated 71771-4) message] The system which generated this result transmit kenny reference range : 0.350 - 4.940 uIU/mL. The reference range was not used to interpret this result as normal/abnormal . ALYSSA (test code = ALYSSA) Nut Grader ID - AAHAMID Lab Interpretation Normal (test code = 63089-0) [facility] HospitalTSH/FREE T4 IF [id number] 07:30:00 Test Item Value Reference Range Interpretation Comments THYROID STIMULATING HORMONE 0.363 uIU/mL 0.350-4.940 (BEAKER) (test code = 772) Nut Grader ID - AAHAMIDPREGNANCY SCREEN, [id number] 07:40:00 Test Item Value Reference Range Interpretation Comments TEST URINE (BEAKER) (test Negative code = 583) BASIC METABOLIC [id number] 07:30:00 Test Item Value Reference Range Interpretation [...] ESTIMATED GFR. CBC W/PLT COUNT & AUTO [id number] 07:20:00 Test Item Value Reference Range Interpretation [...] code = 2801) URINALYSIS W/ REFLEX URINE [id number] 07:17:00 Test Item Value Reference Range Interpretation [...] code = 516) SOURCE(BEAKER) (test code = 0231)
[2020-09-06 20:05] LABS: Absolute Lymphocytes (CBC) 3.6 K/uL (0.7-4.9); Basophils % 1.3 % (0-1.3); Hematocrit 41.6 % (36.0-45.0); Lymphocytes % 41.6 % (15.3-44.8); RBC Red Blood Cell Count 4.41 M/uL (3.86-4.86)
[2020-09-06 20:24] LABS: ALT/SGPT 113 U/L (12-78); AST/SGOT 98 U/L (15-37); Albumin 3.5 g/dL (3.4-5.0); Alkaline Phosphatase 103 U/L (45-117); BUN Blood Urea Nitrogen 14 mg/dL (7-18); Bicarbonate 27 mmol/L (21-32); Bilirubin Direct 0.1 mg/dL (0-0.2); Bilirubin Total 0.3 mg/dL (0.2-1.0); Glucose Level 90 mg/dL (74-106); Magnesium 2.1 mg/dL (1.8-2.4); NT PRO-BNP 32 pg/mL (<125); Potassium 3.7 mmol/L (3.5-5.1); Protein, Total 7.9 g/dL (6.4-8.2); Sodium Level 140 mmol/L (136-145); Troponin (Emerg Dept Use Only) < 0.02 ng/mL (0.0-0.045)
--- NOTE | 2020-09-06 20:25 | RAD REPORT ---
EXAM DESCRIPTION: CT - CTHCSPWOC - 09/06/2020 8:07 pm CLINICAL HISTORY: multiple falls;Weakness COMPARISON: Head C Spine Mpr Wo Con dated 03/12/2020; Stone Protocol dated 09/06/2020 TECHNIQUE: Axial 5 mm thick images of the head were obtained. Axial 2 mm thick images of the cervic al spine were obtained with sagittal and coronal reconstruction images generated and reviewed. All CT scans are performed using dose optimization technique as appropriate and may include automated exposure control or mA/KV adjustment according to patient size. FINDINGS: No intracranial hemorrhage, mass, edema or acute intracranial finding. No acute cortical b ased infarction seen. No cortical edema or sulcal effacement. Ventriculomegaly is present involving t he lateral and third ventricles. This is out of proportion to any volume loss. Degree ventricular dil atation is not clearly different from the comparison study. There is a right frontal bone defect and diminished attenuation in the right frontal lobe indicating an ventriculostomy tube or similar proced ure during the interval. There is no indwelling shunt tube. Mastoid air cells and paranasal sinuses a re clear. No globe or orbit abnormality seen. Cervical bodies are normal in height. There is reversal of the usual cervical lordosis with the apex at C5. C4-5, C5-6 and C6-7 disc space narrowing and endplate spurring changes are present. Bony jeff inal encroachment is present at these levels. No fracture or acute bony abnormality. Central canal d etail is inherently limited. No paraspinal mass or hematoma. IMPRESSION: No acute intracranial finding identifiable. Ventriculomegaly is present out of proportio n to any volume loss. Pattern is similar to comparison. Correlation is needed with any exam findings of normal pressure hydrocephalus. Prominent cervical spine degenerative change as detailed. Findings are similar to comparison. No acut e component.
--- NOTE | 2020-09-06 20:26 | RAD REPORT ---
EXAM DESCRIPTION: RAD - Chest Single View - 09/06/2020 8:14 pm CLINICAL HISTORY: COUGH COMPARISON: None TECHNIQUE: AP portable chest image was obtained 09/06/2020 8:14 pm . FINDINGS: Lungs are clear. Heart and vasculature are normal. No measurable pleural effusion and no p neumothorax. No acute bony abnormality seen. No acute aortic findings suspected. IMPRESSION: No acute cardiopulmonary process.
--- NOTE | 2020-09-06 20:29 | RAD REPORT ---
EXAM DESCRIPTION: CT - Stone Protocol - 09/06/2020 8:07 pm CLINICAL HISTORY: FLANK PAIN, right-side COMPARISON: Abdomen Pelvis W Contrast dated 05/18/2019 TECHNIQUE: Axial [address] imaging of the abdomen and pelvis was performed without IV contrast. No IV contrast was given because of allergy, abnormal renal function, patient refusal or physician re quest. No oral contrast administered. All CT scans are performed using dose optimization technique as appropriate and may include automated exposure control or mA/KV adjustment according to patient size. FINDINGS: No suspicious findings in the lung bases. The liver, spleen and pancreas show no suspicious findings on non-contrast imaging. Gallbladder and b iliary tree are also without suspicious finding. No hydronephrosis or suspicious renal mass. Punctate nonobstructing calyx calculus seen in mid right kidney. No bladder or ureteral calculi seen. No significant adrenal finding. Isodense renal masses an d pyelonephritis cannot be excluded in the absence of IV contrast. Urinary bladder is tightly contrac morena limiting assessment. No uterine or ovarian suspicious finding. No dilated bowel loops or bowel wall thickening. Appendix is normal. Hyperdense material within the c olon is presumed to be medication. No contrast was administered for this examination. No free air, fr ee fluid or inflammatory stranding. No hernia, mass or bulky lymphadenopathy. Degenerative bony changes are present. No pathologic or destructive bone findings identified. IMPRESSION: Non-contrast enhanced CT abdomen and pelvis imaging show no acute or emergent finding fi nding. Full assessment is limited is the absence of IV contrast.
[2020-09-06 20:52] LABS: Urine Bacteria LOADED /HPF (<20); Urine RBC <5 /HPF (NONE SEEN)
[2020-09-06 21:06] LABS: SARS-COV-2 RT PCR NEGATIVE (NEGATIVE)
[2020-09-06] MEDS ORDERED: Levofloxacin500mg IV 500 MG/100 ML BAG IV ONE (21:17)
[2020-09-06] MEDS ORDERED: NA CHLORIDE 0.9% 500 ML ONE (21:18)
--- NOTE | 2020-09-06 22:37 | ER ---
Nurse's Notes [facility] Name: Pao Gonzales Age: 49 yrs Sex: Female : 1970 Arrival Date: 09/06/2020 Time: 18:14 Bed 24 Private MD: Diagnosis: Pyelonephritis;Hydrocephalus-Chronic Presentation: 09/06 18:37 Chief complaint: Patient states: I woke up this morning I just couldn't get up. I am ca1 just weak. I couldn't get out of bed. I need to have assistance. The last this happened to me I had a brain surgery, they had to drain fluids from my brain. This was Mar 2020. Been having a cough x 2 days, low back pain on R x 1 week. Neck pain, R, X 2 days. Coronavirus screen: Client denies travel out of the [place] in the last 14 days. At this time, the client does not indicate any symptoms associated with coronavirus-19. Ebola Screen: Patient negative for fever greater than or equal to 101.5 degrees Fahrenheit, and additional compatible Ebola Virus Disease symptoms Patient denies exposure to infectious person. Patient denies travel to an Ebola-affected area in the 21 days before illness onset. No symptoms or risks identified at this time. Initial Sepsis Screen: Does the patient meet any 2 criteria? No. Patient's initial sepsis screen is negative. Does the patient have a suspected source of infection? No. Patient's initial sepsis screen is negative. Risk Assessment: Do you want to hurt yourself or someone else? Patient reports no desire to harm self or others. Onset of symptoms was September 06, 2020 at 08:00. 18:37 Method Of Arrival: Ambulatory ca1 18:37 Acuity: YOSHI 3 ca1 Triage Assessment: 22:47 General: Behavior is. zb PHERESIS NURSE: 18:42 LMP N/A - Irregular menses ca1 Historical: - Allergies: 18:42 Aspirin; ca1 18:42 PENICILLINS; ca1 - PMHx: 18:42 breast cancer; CVA; kidney problems; Myocardial infarction; ca1 - PSHx: 18:42 brain Surgery; ; ca1 - Immunization history:: Flu vaccine is not up to date. - Social history:: Smoking status: Patient reports the use of cigarette tobacco products, smokes one pack cigarettes per day. Screenin:05 Abuse screen: Denies threats or abuse. Denies injuries from another. Nutritional zb screening: No deficits noted. Tuberculosis screening: No symptoms or risk factors identified. Fall Risk Fall in past 12 months (25 points). No secondary diagnosis (0 pts). No IV (0 pts). Ambulatory Aid- None/Bed Rest/Nurse Assist (0 pts). Gait- Weak (10 pts.). Mental Status- Oriented to own ability (0 pts). Total Lott Fall Scale indicates Low Risk Score (25-44 pts). Fall prevention measures have been instituted. Side Rails Up X 2 Placed close to Nursing Station Frequent Obs/Assesments occuring As available Patient and Family Educated on Fall Prevention Program and strategies. Assessment: 18:59 General: Appears in no apparent distress. uncomfortable. Pain: Complains of pain in zb right low back Pain radiates to right leg Pain currently is 9 out of 10 on a pain scale. Neuro: Level of Consciousness is awake, alert, obeys commands, Oriented to person, place, time, situation. Neuro: Reports dizziness, a syncopal episode weakness. Cardiovascular: Heart tones S1 S2 present Patient's skin is warm and dry. Cardiovascular: Denies chest pain, shortness of breath. Respiratory: Airway is patent Respiratory effort is even, unlabored, Respiratory pattern is regular, symmetrical. Respiratory:. GI: Abdomen is obese, Bowel sounds present X 4 quads. Abdomen is tender to palpation in right upper quadrant. : Reports pain with urination, urgency. Derm: Skin is intact, is healthy with good turgor. Musculoskeletal: Range of motion: intact in all extremities. 20:00 Reassessment: Patient appears in no apparent distress at this time. Patient and/or zb family updated on plan of care and expected duration. Pain level reassessed. Patient is alert, oriented x 3, equal unlabored respirations, skin warm/dry/pink. 21:32 Reassessment: Patient appears in no apparent distress at this time. Patient and/or zb family updated on plan of care and expected duration. Pain level reassessed. Patient is alert, oriented x 3, equal unlabored respirations, skin warm/dry/pink. notified ecp of orthostatics and patients request for pain medication. 22:48 Reassessment: d/c instructions given. gait even and steady. zb Vital Signs: 18:37 BP 111 / 71; Pulse 88; Resp 16 S; Temp 97.2(TE); Pulse Ox 96% on R/A; Weight 77.11 kg ca1 (R); Height 5 ft. 7 in. (170.18 cm) (R); Pain 9/10; 20:20 BP 100 / 57; Pulse 75; Resp 16; Pulse Ox 98% on R/A; zb 21:22 BP 107 / 82 Supine; Pulse 77; zb 21:25 BP 113 / 87 Sitting; Pulse 87; zb 21:30 BP 92 / 74 Standing; Pulse 91; Resp 16; Pulse Ox 100% on R/A; zb 18:37 Body Mass Index 26.63 (77.11 kg, 170.18 cm) ca1 ED Course: 18:14 Patient arrived in ED. am2 18:41 Triage completed. ca1 18:42 Arm band placed on right wrist. ca1 18:43 Jeane Baez, RN is Primary Nurse. zb 19:01 Milo Mcdaniel MD is Attending Physician. mh7 19:06 Patient has correct armband on for positive identification. Placed in gown. Bed in low zb position. Call light in reach. Pulse ox on. NIBP on. Door closed. Noise minimized. Warm blanket given. 19:41 Radiology exam delayed due to test not completed at this time. mw3 19:55 EKG done, by ED staff, reviewed by Milo Mcdaniel MD. zb 20:00 Straight cath inserted, using sterile technique, 16 Fr. Specimen obtained. Returned zb orange urine 150ml . Patient tolerated well. 20:07 CT Head C Spine In Process Unspecified. EDMS 20:07 CT Stone Protocol In Process Unspecified. EDMS 20:12 XRAY Chest (1 view) In Process Unspecified. EDMS 22:34 Sam Marques MD is Referral Physician. 7 22:47 No provider procedures requiring assistance completed. IV discontinued, intact, zb bleeding controlled, No redness/swelling at site. Pressure dressing applied. Administered Medications: 21:29 Drug: LevaQUIN (levofloxacin) 500 mg Volume: 100 ml; Route: IVPB; Infused Over: 60 zb mins; Site: left antecubital; 22:33 Follow up: Response: No adverse reaction; Marked relief of symptoms; IV Status: zb Completed infusion; IV Intake: 100ml 21:30 Drug: NS 0.9% 500 ml Route: IV; Rate: bolus; Site: left antecubital; zb 22:33 Follow up: Response: No adverse reaction; Marked relief of symptoms; IV Status: zb Completed infusion; IV Intake: 500ml 22:34 Drug: Tylenol 1000 mg Route: PO; zb 22:47 Follow up: Response: Medication administered at discharge. zb Intake: 22:33 IV: 100ml; Total: 100ml. zb 22:33 IV: 500ml; Total: 600ml. zb Outcome: 22:36 Discharge ordered by . rick 22:47 Discharged to home ambulatory. zb 22:47 Discharged to home with family. 22:47 Condition: stable 22:47 Discharge instructions given to patient, family, Instructed on discharge instructions, follow up and referral plans. medication usage, Demonstrated understanding of instructions, follow-up care, medications, Prescriptions given X 2. 22:49 Patient left the ED. zb Addendum: 09/09/2020 07:51 Addendum: Culture Results: Positive urine culture. No further action required. Bacteria s s sensitive to prescribed antibiotic. Signatures: Dispatcher [employer] EDMS Aracely Carlson RN RN Molly Nava am2 Nichol Gonzalez mw3 Kala Samuels RN RN ca1 Milo Mcdaniel MD MD mh7 Brown, Zipporah, RN RN zb Corrections: (The following items were deleted from the chart) 09/06 18:42 18:37 Chief complaint: Patient states: I woke up this morning I just couldn't get up. I ca1 am just weak. I couldn't get out of bed. I need to have assistance. The last this happened to me I had a brain surgery, they had to drain fluids from my brain. This was Mar 2020. Been having a cough x 2 days, low back pain on R x 1 week. ca1 21:32 21:30 BP 92 / 74 Standing; Pulse 91bpm; zb zb
--- NOTE | 2020-09-06 22:37 | EDPHYS ---
Physician Documentation [facility] Name: Pao Gonzales Age: 49 yrs Sex: Female : 1970 Arrival Date: 09/06/2020 Time: 18:14 Bed 24 Private MD: ED Physician Milo Mcdaniel HPI: 09/06 19:16 This 49 yrs old Female presents to ER via Ambulatory with complaints of mh7 General Weakness, Dizziness. 19:18 The patient's problem is reported as weakness, that is generalized. Onset: The mh7 symptoms/episode began/occurred this morning, today. Duration: The episodes are intermittent. Context: the episode(s) was witnessed, by no one, symptoms became apparent on September 06, 2020, in the morning, occurred at home, occurred while the patient was sitting, standing, Possible contributing factors include: none. The symptoms are alleviated by nothing. The symptoms are aggravated by standing. Associated signs and symptoms: Pertinent positives: back pain, dizziness, weakness, cough, multiple falls, Pertinent negatives: abdominal pain, agitation, blurred vision, chest pain, combativeness, confusion, diaphoresis, diarrhea, headache, nausea, numbness, palpitations, seizure, shortness of breath, tingling, vertigo, vomiting. Severity of symptoms: At their worst the symptoms were moderate this morning, today, in the emergency department the symptoms have improved mildly. The patient has experienced similar episodes in the past, a few times. 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 - Social history:: Smoking status: Patient reports the use of cigarette tobacco products, smokes one pack cigarettes per day. ROS: 19:18 Constitutional: Negative for fever, chills, and weight loss, Eyes: Negative for injury, mh7 pain, redness, and discharge, ENT: Negative for injury, pain, and discharge, Neck: Negative for injury, pain, and swelling, Cardiovascular: Negative for chest pain, palpitations, and edema, Abdomen/GI: Negative for abdominal pain, nausea, vomiting, diarrhea, and constipation, : Negative for injury, bleeding, discharge, and swelling, MS/Extremity: Negative for injury and deformity, Skin: Negative for injury, rash, and discoloration, Psych: Negative for depression, anxiety, suicide ideation, homicidal ideation, and hallucinations, Allergy/Immunology: Negative for hives, rash, and allergies, Endocrine: Negative for neck swelling, polydipsia, polyuria, polyphagia, and marked weight changes, Hematologic/Lymphatic: Negative for swollen nodes, abnormal bleeding, and unusual bruising. Exam: 19:18 Constitutional: This is a well developed, well nourished patient who is awake, alert, mh7 and in no acute distress. Head/Face: Normocephalic, atraumatic. Eyes: Pupils equal round and reactive to light, extra-ocular motions intact. Lids and lashes normal. Conjunctiva and sclera are non-icteric and not injected. Cornea within normal limits. Periorbital areas with no swelling, redness, or edema. Neck: Trachea midline, no thyromegaly or masses palpated, and no cervical lymphadenopathy. Supple, full range of motion without nuchal rigidity, or vertebral point tenderness. No Meningismus. Chest/axilla: Normal chest wall appearance and motion. Nontender with no deformity. No lesions are appreciated. Cardiovascular: Regular rate and rhythm with a normal S1 and S2. No gallops, murmurs, or rubs. Normal PMI, no JVD. No pulse deficits. Respiratory: Lungs have equal breath sounds bilaterally, clear to auscultation and percussion. No rales, rhonchi or wheezes noted. No increased work of breathing, no retractions or nasal flaring. Abdomen/GI: Soft, non-tender, with normal bowel sounds. No distension or tympany. No guarding or rebound. No evidence of tenderness throughout. 19:18 Skin: Warm, dry with normal turgor. Normal color with no rashes, no lesions, and no evidence of cellulitis. MS/ Extremity: Pulses equal, no cyanosis. Neurovascular intact. Full, normal range of motion. 19:18 Psych: Awake, alert, with orientation to person, place and time. Behavior, mood, and affect are within normal limits. 19:18 Back: ROM is normal, normal spinal alignment noted, CVA tenderness, that is moderate, is noted on the right, vertebral tenderness, is not appreciated, muscle spasm, is not present. 19:18 Neuro: Orientation: is normal, Mentation: is normal, Memory: is normal, Cranial nerves: grossly normal, Cerebellar function: is grossly normal, Motor: is normal, Sensation: is normal, Gait: not tested. seizure activity, is not displayed by the patient, Abnormal movements: there are no abnormal movements. 09/07 04:30 Radiologist reports: No acute intracranial findings identifiable. Ventriculomegaly is mh7 present out of proportion to volume loss. Pattern is similar to comparison. Vital Signs: 09/06 18:37 BP 111 / 71; Pulse 88; Resp 16 S; Temp 97.2(TE); Pulse Ox 96% on R/A; Weight 77.11 kg ca1 (R); Height 5 ft. 7 in. (170.18 cm) (R); Pain 9/10; 20:20 BP 100 / 57; Pulse 75; Resp 16; Pulse Ox 98% on R/A; zb 21:22 BP 107 / 82 Supine; Pulse 77; zb 21:25 BP 113 / 87 Sitting; Pulse 87; zb 21:30 BP 92 / 74 Standing; Pulse 91; Resp 16; Pulse Ox 100% on R/A; zb 18:37 Body Mass Index 26.63 (77.11 kg, 170.18 cm) ca1 MDM: 22:25 Differential diagnosis: metabolic disorder, hydrocephalus, pyelonephritis. Data mh7 reviewed: vital signs, nurses notes, old medical records, lab test result(s), cardiac enzymes, CBC, electrolytes, urinalysis, EKG, radiologic studies, CT scan, plain films. Data interpreted: Pulse oximetry: on room air is 100 %. Interpretation: normal. Counseling: I had a detailed discussion with the patient and/or guardian regarding: the historical points, exam findings, and any diagnostic results supporting the discharge/admit diagnosis, lab results, radiology results, the need for outpatient follow up, to return to the emergency department if symptoms worsen or persist or if there are any questions or concerns that arise at home. Response to treatment: the patient's symptoms have resolved after treatment, the patient's blood pressure is in an acceptable range, mental status has returned to baseline, the patient no longer shows bradycardia, the patient is not short of breath, the patient is not tachycardic, the patient's pain is gone, the patient's temperature has normalized, the patient is now symptom free, patient is well hydrated. Physician consultation: Sam Marques MD was contacted at 21:15, regarding patient's condition, and will see patient in office, in 2-3 days. ED course: Well appearing, NAD, VSS, no focal neurological deficits. Ambulating without difficulty and no complaints. Patient requests to be discharged from the ED. Discussed with Dr. Marques (Neurology) who recommended Diamox 250 mg BID and follow up. Does not require transfer at this time.. 22:36 Patient medically screened. 09/06 19:15 Order name: Basic Metabolic Panel; Complete Time: 20:33 09/06 19:15 Order name: CBC with Diff; Complete Time: 20:12 09/06 19:15 Order name: LFT's; Complete Time: 20:33 [facility] 09/06 19:15 Order name: Magnesium; Complete Time: 20:33 09/06 19:15 Order name: NT PRO-BNP; Complete Time: 20:33 09/06 19:15 Order name: PT-INR; Complete Time: 20:33 09/06 19:15 Order name: Troponin (emerg Dept Use Only); Complete Time: 20:33 09/06 19:15 Order name: XRAY Chest (1 view); Complete Time: 20:33 09/06 19:15 Order name: CT Head C Spine; Complete Time: 20:33 09/06 20:04 Order name: Urine Culture 09/06 20:09 Order name: UA MICROSCOPIC; Complete Time: 20:59 09/06 21:06 Order name: COVID-19/FLU A+B/RSV; Complete Time: 21:13 [facility] 09/06 19:15 Order name: EKG; Complete Time: 19:16 09/06 19:15 Order name: Cardiac monitoring; Complete Time: 19:57 [facility] 09/06 19:15 Order name: EKG - Nurse/Tech; Complete Time: 19:57 [facility] 09/06 19:15 Order name: IV Saline Lock; Complete Time: 19:57 09/06 19:15 Order name: Labs collected and sent; Complete Time: 19:57 [facility] 09/06 19:15 Order name: O2 Per Protocol; Complete Time: 19:57 [facility] 09/06 19:15 Order name: O2 Sat Monitoring; Complete Time: 19:57 [facility] 09/06 19:15 Order name: Urine Dipstick-Ancillary (obtain specimen); Complete Time: 20:05 [facility] 09/06 19:15 Order name: CT Stone Protocol; Complete Time: 20:33 [facility] 09/06 19:15 Order name: Orthostatics; Complete Time: 22:47 mh7 Administered Medications: 21:29 Drug: LevaQUIN (levofloxacin) 500 mg Volume: 100 ml; Route: IVPB; Infused Over: 60 zb mins; Site: left antecubital; 22:33 Follow up: Response: No adverse reaction; Marked relief of symptoms; IV Status: zb Completed infusion; IV Intake: 100ml 21:30 Drug: NS 0.9% 500 ml Route: IV; Rate: bolus; Site: left antecubital; zb 22:33 Follow up: Response: No adverse reaction; Marked relief of symptoms; IV Status: zb Completed infusion; IV Intake: 500ml 22:34 Drug: Tylenol 1000 mg Route: PO; zb 22:47 Follow up: Response: Medication administered at discharge. zb Disposition: 09/06/20 22:36 Discharged to Home. Impression: Pyelonephritis, Hydrocephalus - Chronic. - Condition is Stable. - Discharge Instructions: Pyelonephritis, Adult, [id number], Normal-Pressure Hydrocephalus. - Prescriptions for acetazolamide 250 mg Oral tablet - take 1 tablet by ORAL route 2 times per day; 10 tablet. Levaquin 500 mg Oral Tablet - take 1 tablet by ORAL route once daily for 10 days; 10 tablet. - Medication Reconciliation Form, Thank You Letter, Antibiotic Education, Prescription Opioid Use form. - Follow up: Private Physician; When: 1 - 2 days; Reason: Worsening of condition, Recheck today's complaints, Continuance of care, Re-evaluation by your physician. Follow up: Sam Marques MD; When: 2 - 3 days; Reason: Worsening of condition, Recheck today's complaints. - Problem is an acute exacerbation. - Symptoms have improved. Signatures: Dispatcher [employer] EDMS Kala Samuels RN RN ca1 Milo Mcdaniel MD MD mh7 Jeane Baez RN RN zb Corrections: (The following items were deleted from the chart) 19:57 19:15 Urine Test ordered. [facility] zb 20:16 19:39 CORONAVIRUS+MR.LAB.BRZ ordered. [facility] 20:17 19:39 Influenza Screen (A \T\ B)+BA.LAB.BRZ ordered. [facility] 22:49 22:36 09/06/2020 22:36 Discharged to Home. Impression: Pyelonephritis; Hydrocephalus - zb Chronic. Condition is Stable. Forms are Medication Reconciliation Form, Thank You Letter, Antibiotic Education, Prescription Opioid Use. Follow up: Private Physician; When: 1 - 2 days; Reason: Worsening of condition, Recheck today's complaints, Continuance of care, Re-evaluation by your physician. Follow up: Sam Marques; When: 2 - 3 days; Reason: Worsening of condition, Recheck today's complaints. Problem is an acute exacerbation. Symptoms have improved. 7
[2020-09-06] MEDS ORDERED: ACETAMINOPHEN 500 MG TAB ONE (22:45)
[2020-09-06 23:13] VITALS: TEMP 97.2
[2020-09-06 23:18] VITALS: BP 92/74; O2SAT 100
[2020-09-09 14:45] LABS: Urine Blood 1+ (Negative); Urine Glucose Trace (Negative); Urine Protein 2+ (Negative); Urine Specific Gravity >=1.030 (1.005-1.030)
== END 2020-09-06 22:49 | disposition home or self-care (01) ==
LOC: ER 18:13
DX: N12 Tubulo-interstitial nephritis, not specified as acute or chronic (principal); G91.9 Hydrocephalus, unspecified; F17.210 Nicotine dependence, cigarettes, uncomplicated; Z85.3 Personal history of malignant neoplasm of breast; I25.2 Old myocardial infarction; Z86.73 Personal history of transient ischemic attack (TIA), and cerebral infarction without residual deficits; Z20.822 Contact with and (suspected) exposure to COVID-19
CPT/HCPCS: 0241U; 36415; 51702; 70450; 71045; 72125; 74176; 76377; 80048; 80076; 81003; 81015; 83735; 83880; 84484; 85025; 85610; 87077; 87086; 87088; 87186; 93005; 96365; 99284; J7040

== ENCOUNTER 2021-03-10 14:20 | Emergency (ER) | payer SELFPAY ==
[2021-03-10 16:23] LABS: Urine Blood 2+ (Negative); Urine Glucose Negative (Negative); Urine Protein 2+ (Negative)
[2021-03-10] MEDS ORDERED: ONDANSETRON 4 MG/2 ML VIAL ONE (16:32)
[2021-03-10] MEDS ORDERED: MORPHINE 4 MG/ML SYR ONE (16:32)
[2021-03-10] MEDS ORDERED: CEFTRIAXONE 1000 MG/VIAL ONE (16:32)
[2021-03-10] MEDS ORDERED: NA CHLORIDE 0.9% 1,000 ML ONE (16:32)
[2021-03-10 16:33] LABS: Basophils % 2.2 % (0-1.3); Hematocrit 40.1 % (36.0-45.0); Lymphocytes % 30.4 % (15.3-44.8); RBC Red Blood Cell Count 4.23 M/uL (3.86-4.86)
[2021-03-10 16:44] LABS: Albumin 3.4 g/dL (3.4-5.0); Bilirubin Direct 0.2 mg/dL (0-0.2); Bilirubin Total 0.4 mg/dL (0.2-1.0); Potassium 3.8 mmol/L (3.5-5.1); Protein, Total 7.8 g/dL (6.4-8.2)
--- NOTE | 2021-03-10 18:15 | ER ---
Nurse's Notes [facility] Name: Pao Gonzales Age: 50 yrs Sex: Female : 1970 Arrival Date: 03/10/2021 Time: 14:22 Bed 26 Private MD: Diagnosis: Acute cystitis Presentation: 03/10 14:37 Chief complaint: Patient states: For the past three days has been having Right hip pain vg1 that radiates down to Right foot. States that has a UTI, and it houser to urinate and states 'im raw down there'. States has had UTI symptoms for about a month but has not seen a doctor for it but has been taking AZO. Denies NV but states Diarrhea. Coronavirus screen: Vaccine status: Patient reports being unvaccinated. Ebola Screen: Patient negative for fever greater than or equal to 101.5 degrees Fahrenheit, and additional compatible Ebola Virus Disease symptoms. Initial Sepsis Screen: Does the patient meet any 2 criteria? No. Patient's initial sepsis screen is negative. Does the patient have a suspected source of infection? No. Patient's initial sepsis screen is negative. Risk Assessment: Do you want to hurt yourself or someone else? Patient reports no desire to harm self or others. Onset of symptoms was February 08, 2021. 14:37 Method Of Arrival: Ambulatory vg1 14:37 Acuity: YOSHI 3 vg1 Triage Assessment: 14:40 General: Appears in no apparent distress. uncomfortable, Behavior is calm, cooperative. vg1 Pain: Complains of pain in right leg, right hip, lower ABD. 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 - Social history:: Smoking status: Patient reports the use of cigarette tobacco products, smokes one-half pack cigarettes per day, Patient/guardian denies using alcohol, street drugs, The patient lives with family. - Family history:: not pertinent. Screenin:28 Abuse screen: Denies threats or abuse. Denies injuries from another. Nutritional ld1 screening: No deficits noted. Tuberculosis screening: No symptoms or risk factors identified. Fall Risk None identified. Assessment: 16:28 General: Appears in no apparent distress. comfortable, Behavior is cooperative, ld1 appropriate for age, anxious. Pain: Complains of pain in abdomen Pain does not radiate. Pain currently is 8 out of 10 on a pain scale. Quality of pain is described as throbbing, Pain began 2-3 days ago. Is continuous. Neuro: Level of Consciousness is awake, alert, obeys commands, Oriented to person, place, time, situation. Cardiovascular: Capillary refill < 3 seconds Patient's skin is warm and dry. Respiratory: Airway is patent Respiratory effort is even, unlabored, Respiratory pattern is regular, symmetrical. GI: Abdomen is flat, non-distended. : Reports burning with urination, urgency, urinary frequency. EENT: No signs and/or symptoms were reported regarding the EENT system. Derm: No signs and/or symptoms reported regarding the dermatologic system. Musculoskeletal: No signs and/or symptoms reported regarding the musculoskeletal system. 18:00 Reassessment: Patient appears in no apparent distress at this time. No changes from ld1 previously documented assessment. Patient and/or family updated on plan of care and expected duration. Pain level reassessed. Patient is alert, oriented x 3, equal unlabored respirations, skin warm/dry/pink. Vital Signs: 14:37 BP 133 / 89; Pulse 122; Resp 18; Temp 98.8; Pulse Ox 97% ; Weight 81.65 kg; Height 5 vg1 ft. 7 in. (170.18 cm); Pain 6/10; 16:28 BP 133 / 106; Pulse 106; Resp 18; Pulse Ox 98% on R/A; Pain 8/10; ld1 14:37 Body Mass Index 28.19 (81.65 kg, 170.18 cm) vg1 ED Course: 14:22 Patient arrived in ED. am2 14:40 Triage completed. vg1 14:40 Arm band placed on. vg1 15:28 Martin Marie MD is Attending Physician. ma2 15:29 Yoselin Greene RN is Primary Nurse. ld1 16:28 Patient has correct armband on for positive identification. Placed in gown. Bed in low ld1 position. Call light in reach. Side rails up X2. laboratory monitor on. Pulse ox on. NIBP on. Door closed. Noise minimized. Warm blanket given. 16:28 No provider procedures requiring assistance completed. Inserted saline lock: 20 gauge ld1 in left antecubital area, using aseptic technique. Blood collected. 19:03 IV discontinued, intact, bleeding controlled, No redness/swelling at site. ld1 Administered Medications: 16:28 Drug: NS 0.9% 1000 ml Route: IV; Rate: 1 bolus; Site: left antecubital; ld1 16:28 Drug: morphine 4 mg Route: IVP; Site: left antecubital; ld1 16:28 Drug: Zofran (Ondansetron) 4 mg Route: IVP; Site: left antecubital; ld1 16:28 Drug: Rocephin (cefTRIAXone) 1 grams Route: IV; Rate: calculated rate; Site: left ld1 antecubital; Outcome: 18:14 Discharge ordered by . an 19:03 Discharged to home ambulatory. ld1 19:03 Condition: stable 19:03 Discharge instructions given to patient, Instructed on discharge instructions, follow up and referral plans. medication usage, Demonstrated understanding of instructions, follow-up care, medications, Prescriptions given X 4. 19:03 Patient left the ED. ld1 Signatures: Molly Casanova Mohammad, MD MD ma2 Amarilis Sheriff, RN RN vg1 Yoselin Greene RN RN ld1
--- NOTE | 2021-03-10 18:15 | EDPHYS ---
Physician Documentation [facility] Name: Pao Gonzales Age: 50 yrs Sex: Female : 1970 Arrival Date: 03/10/2021 Time: 14:22 Bed 26 Private MD: ED Physician Martin Marie HPI: 03/10 15:52 This 50 yrs old Female presents to ER via Ambulatory with complaints of Leg ma2 Pain, Pain All Over. 15:52 This 50 yrs old Female presents to ER via Ambulatory with complaints of ma2 dysuria, supra pubic pain, riht leg pain . 15:52 Onset: The symptoms/episode began/occurred gradually, 2 day(s) ago. Associated signs ma2 and symptoms: Pertinent negatives rash, tingling, vomiting. Treatment prior to arrival includes: no previous treatment. Severity of symptoms: At their worst the symptoms were moderate, in the emergency department the symptoms have improved. The patient has experienced similar episodes in the past. 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 - Social history:: Smoking status: Patient reports the use of cigarette tobacco products, smokes one-half pack cigarettes per day, Patient/guardian denies using alcohol, street drugs, The patient lives with family. - Family history:: not pertinent. ROS: 15:52 Constitutional: Negative for fever, chills, and weight loss. ma2 15:52 All other systems are negative. Exam: 15:52 Constitutional: This is a well developed, well nourished patient who is awake, alert, ma2 and in no acute distress. Eyes: Pupils equal round and reactive to light, extra-ocular motions intact. Lids and lashes normal. Conjunctiva and sclera are non-icteric and not injected. Cornea within normal limits. Periorbital areas with no swelling, redness, or edema. ENT: Nares patent. No nasal discharge, no septal abnormalities noted. Tympanic membranes are normal and external auditory canals are clear. Oropharynx with no redness, swelling, or masses, exudates, or evidence of obstruction, uvula midline. Mucous membranes moist. Neck: Trachea midline, no thyromegaly or masses palpated, and no cervical lymphadenopathy. Supple, full range of motion without nuchal rigidity, or vertebral point tenderness. No Meningismus. Chest/axilla: Normal chest wall appearance and motion. Nontender with no deformity. No lesions are appreciated. Cardiovascular: Regular rate and rhythm with a normal S1 and S2. No gallops, murmurs, or rubs. Normal PMI, no JVD. No pulse deficits. Respiratory: Lungs have equal breath sounds bilaterally, clear to auscultation and percussion. No rales, rhonchi or wheezes noted. No increased work of breathing, no retractions or nasal flaring. Abdomen/GI: Soft, non-tender, with normal bowel sounds. No distension or tympany. No guarding or rebound. No evidence of tenderness throughout. Back: No spinal tenderness. No costovertebral tenderness. Full range of motion. Skin: Warm, dry with normal turgor. Normal color with no rashes, no lesions, and no evidence of cellulitis. MS/ Extremity: Pulses equal, no cyanosis. Neurovascular intact. Full, normal range of motion. Neuro: Awake and alert, GCS 15, oriented to person, place, time, and situation. Cranial nerves II-XII grossly intact. Motor strength 5/5 in all extremities. Sensory grossly intact. Cerebellar exam normal. Normal gait. Psych: Awake, alert, with orientation to person, place and time. Behavior, mood, and affect are within normal limits. Vital Signs: 14:37 BP 133 / 89; Pulse 122; Resp 18; Temp 98.8; Pulse Ox 97% ; Weight 81.65 kg; Height 5 vg1 ft. 7 in. (170.18 cm); Pain 6/10; 16:28 BP 133 / 106; Pulse 106; Resp 18; Pulse Ox 98% on R/A; Pain 8/10; ld1 14:37 Body Mass Index 28.19 (81.65 kg, 170.18 cm) vg1 MDM: 15:29 Patient medically screened. ma2 15:52 Differential diagnosis: contusion, abrasion, tendonitis, uti. ma2 18:13 Data reviewed: vital signs, nurses notes, EMS record, half-way records. Counseling: ma2 I had a detailed discussion with the patient and/or guardian regarding: the historical points, exam findings, and any diagnostic results supporting the discharge/admit diagnosis, the presence of at least one elevated blood pressure reading (>120/80) during this emergency department visit, the need for outpatient follow up. Response to treatment: the patient's symptoms have markedly improved after treatment. 03/10 15:44 Order name: Basic Metabolic Panel [facility] 03/10 15:44 Order name: CBC with Diff; Complete Time: 17:08 dc2 03/10 15:44 Order name: Hepatic Function; Complete Time: 17:08 [facility] 03/10 15:44 Order name: Lipase; Complete Time: 17:08 [facility] 03/10 15:44 Order name: Basic Metabolic Panel; Complete Time: 17:08 EDLA 03/10 16:23 Order name: Urine Dipstick-Ancillary; Complete Time: 16:34 EDMS 03/10 15:44 Order name: IV Saline Lock; Complete Time: 16:28 [facility] 03/10 15:44 Order name: Labs collected and sent; Complete Time: 16:28 [facility] 03/10 15:44 Order name: Urine Dipstick-Ancillary (obtain specimen); Complete Time: 16:28 [facility] Administered Medications: 16:28 Drug: NS 0.9% 1000 ml Route: IV; Rate: 1 bolus; Site: left antecubital; ld1 16:28 Drug: morphine 4 mg Route: IVP; Site: left antecubital; ld1 16:28 Drug: Zofran (Ondansetron) 4 mg Route: IVP; Site: left antecubital; ld1 16:28 Drug: Rocephin (cefTRIAXone) 1 grams Route: IV; Rate: calculated rate; Site: left ld1 antecubital; Disposition Summary: 03/10/21 18:14 Discharge Ordered Location: Home ma2 Condition: Stable ma2 Diagnosis - Acute cystitis ma2 Followup: ma2 - With: Private Physician - When: Tomorrow - Reason: If symptoms return Discharge Instructions: - Discharge Summary Sheet ma2 - Urinary Tract Infection, Adult, [id number] ma2 Forms: - Medication Reconciliation Form ma2 - Thank You Letter ma2 - Antibiotic Education ma2 - Prescription Opioid Use ma2 Prescriptions: - Cyclobenzaprine 10 mg Oral Tablet - take 1 tablet by ORAL route every 8 hours As needed; 30 tablet; Refills: 0, ma2 Product Selection Permitted - Diclofenac Sodium 75 mg Oral Tablet Sustained Release - take 1 tablet by ORAL route 2 times per day; 30 tablet; Refills: 0, Product ma2 Selection Permitted - Bactrim DS 800-160 mg Oral Tablet - take 1 tablet by ORAL route every 12 hours for 5 days; 21 tablet; Refills: 0, ma2 Product Selection Permitted - Zofran 4 mg Oral Tablet - take 1 tablet by ORAL route every 12 hours As needed; 20 tablet; Refills: 0, ma2 Product Selection Permitted Signatures: Dispatcher [employer] EDMartin Tierney MD MD ma2 Amarilis Sheriff RN RN vg1 Yoselin Greene RN RN ld1
[2021-03-10 19:16] VITALS: TEMP 98.8
[2021-03-10 19:18] VITALS: BP 133/106; O2SAT 98
== END 2021-03-10 19:03 | disposition home or self-care (01) ==
LOC: ER 14:20
DX: N30.00 Acute cystitis without hematuria (principal); F17.210 Nicotine dependence, cigarettes, uncomplicated; Z85.3 Personal history of malignant neoplasm of breast; Z88.0 Allergy status to penicillin; Z88.6 Allergy status to analgesic agent
CPT/HCPCS: 36415; 80048; 80076; 81003; 83690; 85025; 96374; 96375; 99284; J2405; J7030

== ENCOUNTER 2021-12-30 18:49 | Emergency (ER) | payer SELFPAY ==
--- OUTSIDE RECORDS SUMMARY | 2021-12-30 18:54 | XMS REPORT | Continuity of Care Document ---
:1970 Author Organization [facility] t Address [address] [place] [address] Care Team Providers Name Role Phone Asked, No Pcp Primary Care Physician Unavailable MALIK TAPIA, YEE WARE Attending Clinician Unavailable PETER Attending Clinician Unavailable Cyrus LEWIS, Tete Attending Clinician TETE LOWE Attending Clinician Unavailable Mita GARZA, Patsy Attending Clinician Unavailable tonya Attending Clinician Unavailable Malik Tapia MD, Yee Ware Attending Clinician [phone] Mayco GAMBOA, Festus Mendez Attending Clinician [phone] MARISEL Attending Clinician Unavailable Selwyn GAMBOA, Yannick Attending Clinician Ángel GAMBOA, Karena Shaw Attending Clinician Marcos GAMBOA, Darrell Lowry Attending Clinician Laura Nichole MD Attending Clinician Herb GAMBOA, Tavon Wilkinson Attending Clinician Unavailable Ritter GAMBOA, Socrates Go Attending Clinician Farnaz GAMBOA, Melo Evans Attending Clinician Unavailable YANNICK BRAND Attending Clinician Unavailable ELPIDIO BULLARD Attending Clinician Unavailable YEE ANDREWS Admitting Clinician Unavailable KRYSTYNADaryaANTONELLA Admitting Clinician Unavailable tonya Admitting Clinician Unavailable MARISEL Admitting Clinician Unavailable LAURA NICHOLE Admitting Clinician Unavailable YANNICK BRAND Admitting Clinician Unavailable Payers Payer Name Policy Type Policy Number Effective Date Expiration Date S ource CDC REVIEW [id number] 2020 00:00:00 Problems Condition Condition Condition Status Onset Resolution Last Treating Co mments Source Name Details Category Date Date Treatment Clinician Date Hydrocepha Hydrocepha Disease Active 2019-[address] [facility] Allergies, Adverse Reactions, Alerts Allergy Allergy Status Severity Reaction(s) Onset Inactive Treating Comm ents Source Name Type Date Date Clinician Penicill Drug Active 2019-[address] [facility] 0[facility]27 [facility], [facility]: "I am Medical 00 allergic Center to penicilli ns". PENICILL Allergy Active 2019-[address] [facility] 0-27 [facility] Aspirin Propensi Active Itching Method i ty to 02-17 st adverse 00:00: Hospita reaction 00 l s to drug Penicill Propensi Active Itching Metho di ins ty to 02-17 st adverse 00:00: Hospita reaction 00 l s to drug ASPIRIN Allergy Active [facility] 12-21 00:00: 00 Aspirin Propensi Active Stomach [facility] 12[facility]21 upset [facility] adverse 00:[facility]: Medical reaction 00 Center s Social History Social Habit Start Date Stop Date Quantity Comments Source History of tobacco Cigarette Smoker [facility] use [facility] History SDOH [facility] Alcohol Binge Medical [facility] History SDOH [facility] Alcohol Comment Medical C enter Alcohol intake 2020-04-13 2020-04-13 [facility] alcohol [facility] Center (finding) History [facility] 2020-03-19 2020-03-[address] [facility] Alcohol Frequency 00:00:00 00:00:00 Medical Center History [facility] 2020-03-19 2020-03-[address] [facility] Alcohol Std Drinks 00:00:00 00:00:00 [facility] Tobacco use and 2020-03-18 2020-03-[address] [facility] exposure 00:00:00 00:00:00 Medical Center Tobacco Comment 2020-03-18 2020-03-18 1/2 pack a day [facility] Center Cigarettes smoked 2019-02-18 2019-02-[address] current (pack [facility] 00:00[facility]00 [facility] - Reported Sex Assigned At [address] [facility] 00:00:00 00:[facility]:00 Medical Center Smoking Status Start Date Stop Date Source Current every day smoker 2019-02-18 00:00:00 Met [facility] Medications Ordered Filled Start Stop Current Ordering Indication Dosage Frequency Signature Comments Components Source Medication Medication Date Date Medication? Clinician (SIG) Name Name acetaminoph 2019-05 Yes 1{tbl} Take [address] en-codeine 1-17 tablet by Helio benton (TYLENOL 00:00: mouth Medical #3) 300-30 00 every 6 Center mg per (six) tablet hours as needed. acetaminoph 2019-05 Yes 1{tbl} Take [address] en-codeine 1-17 tablet by Helio benton (TYLENOL 00:00: mouth Medical #3) 300-30 00 every 6 Center mg per (six) tablet hours as needed. HYDROcodone 2019-05 2020- No 1{tbl} Take [address] -acetaminop 0-28 11-07 tablet by Kimi castro (NORCO 00:00: 23:59 mouth Medic al 5-325) 00 :00 every 6 Center 5-325 mg (six) per tablet hours as needed for Pain for up to 10 days. Max Daily Amount: 4 tablets HYDROcodone 2019-05- No 1{tbl} Take [address] -acetaminop 0-28 03-29 tablet by Kimi castro (NORCO 00:00: 23:59 mouth Medic al 5-325) 00 :00 every 6 Center 5-325 mg (six) per tablet hours as needed for Pain for up to 10 days. Max Daily Amount: 4 tablets No known No [facility] Vital Signs Vital Name Observation Time Observation Value Comments Source HEIGHT 2020-04-04 15:00:00 170.2 cm WEIGHT 2020-04-04 15:00:00 77.7 kg WEIGHT 2020-04-04 10:00:00 77.656 kg HEIGHT 2020-04-04 15:00:00 170.2 cm WEIGHT 2020-04-04 15:00:00 77.7 kg WEIGHT 2020-04-04 10:00:00 77.656 kg Systolic blood 2020-04-04 16:33:00 124 mm[Hg] [facility] Diastolic blood 2020-04-04 16:33:00 77 mm[Hg] [facility] Heart rate 2020-04-04 16:33:00 71 /min [facility] Body temperature 2020-04-04 16:33:00 35.89 Marika [facility] Respiratory rate 2020-04-04 16:33:00 16 /min [facility] Oxygen saturation in 2020-04-04 16:33:00 98 /min [facility] Arterial blood by Medical Ce nter Pulse oximetry Body height 2020-04-04 15:00:00 170.2 cm [facility] Body weight 2020-04-04 15:00:00 77.7 kg [facility] BMI 2020-04-04 15:00:00 26.83 kg/m2 [facility] Procedures Procedure Date / Time Performing Clinician Source Performed BASIC METABOLIC PANEL (7) 2020-04-04 06:28:[address] [facility] CBC W/PLT COUNT & AUTO 2020-04-04 06:28:00 Festus Mao [facility] I [facility] HEPATIC FUNCTION PANEL 2020-04-04 06:28:00 Festus Mao CH I [facility] CBC W/PLT COUNT & AUTO 2020-04-04 06:28:00 Festus Mao [facility] CT BRAIN WITHOUT IV 2020-03-18 19:57:[address] [facility] VENTRICULOSTOMY,THIRD 2020-03-18 16:15:00 Tavon Estevez OsmanDavid [facility] VENTRICLE NEUROENDOSCOPIC [facility] STEREOTACTIC SCREEN, URINE 2020-03-18 14:37:00 Socrates Jacobsen Abbi [facility] ABORH, MANUAL 2020-03-17 16:18:00 Dinah Mancia [facility] PT/APTT 2020-03-17 14:50:00 Krzysztof Velasquez [facility] TYPE AND SCREEN, AUTOMATED 2020-03-17 14:50:00 Malorie Velasquez [facility] ECG 12-LEAD 2020-03-17 03:47:24 Karena Neal [facility] ECG 12-LEAD 2020-03-17 03:47:24 Unknown, Hl7 [facility] XR CHEST 1 VIEW PORTABLE / 2020-03-15 12:58:00 Karena Neal [facility] MR BRAIN WITH & WITHOUT IV 2020-03-14 21:57:[address] [facility] CBC W/PLT COUNT & AUTO 2020-03-14 05:35:[address] [facility] BASIC METABOLIC PANEL (7) 2020-03-14 05:35:00 Karena Neal [facility] HEPATIC FUNCTION PANEL 2020-03-14 05:35:00 Karena Neal [facility] CBC W/PLT COUNT & AUTO 2020-03-14 05:35:[address] [facility] MR BRAIN WITHOUT IV 2020-03-13 16:32:[address] [facility] 2D ECHO W/ DOPPLER 2020-03-13 11:57:[address] [facility] (CW/PW/COLOR) [facility] URINALYSIS W/ MICROSCOPIC 2020-03-13 06:26:[address] [facility] SCREEN, URINE 2020-03-13 06:26:00 Laura Nichole [facility] COMPREHENSIVE METABOLIC 2020-03-13 05:32:[address] [facility] PANEL [facility] CBC W/PLT COUNT & AUTO 2020-03-13 05:32:[address] [facility] DIFFERENTIAL [facility] MAGNESIUM 2020-03-13 05:32:00 Laura Nichole [facility] TSH/FREE T4 IF INDICATED 2020-03-13 05:32:00 Laura Nichole [facility] CBC W/PLT COUNT & AUTO 2020-03-13 05:32:[address] [facility] DIFFERENTIAL [facility] SARS-COV2/RT-PCR ([facility] & 2020-03-13 05:27:[address] [facility] REF LABS) [facility] Plan of Care Planned Activity Planned Date Details Comments Source Future Scheduled 2021-01-21 INFLUENZA VACCINE (#1) [facility] 00:00[facility]00 [code = INFLUENZA Medical Ce nter VACCINE (#1)] Future Scheduled 2021-01-21 INFLUENZA VACCINE (#1) [facility] 00:00:00 [code = INFLUENZA Medical Ce nter VACCINE (#1)] Future Scheduled 2020-05-[address] [facility] Test 00:00:00 (12+) [code = Medical Center DEPRESSION SCREENING (12+)] Future Scheduled 2020-05-[address] [facility] Test 00:00:00 (12+) [code = Medical Center DEPRESSION SCREENING (12+)] Future Scheduled 2019-11-06 SHINGLES VACCINES ([address] [facility] Test 00:00:00 of 2) [code = SHINGLES Medic al Center VACCINES (1 of 2)] Future Scheduled 2019-11-06 SHINGLES VACCINES ([address] [facility] Test 00:00:00 of 2) [code = SHINGLES Medic al Center VACCINES (1 of 2)] Future Scheduled [address] [facility] 00:00:00 (procedure) [code = Medical Center 18079999] Future Scheduled [address] [facility] Test 00:00:00 (procedure) [code = Medical Center 69460200] Future Scheduled [address] [facility] 00:00[facility]00 [facility] cerv[facility] (procedure) [code = 065576010] Future Scheduled [address] [facility] Test 00:00:00 malignant neoplasm of Medica l Center cervix (procedure) [code = 937277973] Future Scheduled 1988 DTAP/TDAP/TD VACCINES [facility] 00:00:00 (1 - Tdap) [code = Medical C enter DTAP/TDAP/TD VACCINES (1 - Tdap)] Future Scheduled 1988 DTAP/TDAP/TD VACCINES [facility] 00:00:00 (1 - Tdap) [code = Medical C enter DTAP/TDAP/TD VACCINES (1 - Tdap)] Future Scheduled 1987-11-06 HEPATITIS C SCRE[facility]ING [facility] 00:00:00 [code = HEPATITIS C Medical Center SCREENING] Future Scheduled 1987-11-06 HEPATITIS C SCREENING [facility] 00:00:00 [code = HEPATITIS C Medical Center SCREENING] Future Scheduled 1981 COVID-19 VACCINE (1) [facility] Test 00:00:00 [code = COVID-[address] VACCINE (1)] Future Scheduled 1981 COVID-19 VACCINE (1) [facility] Test 00:00:00 [code = COVID-[address] VACCINE (1)] Future Scheduled 1975-11-[address] [facility] Test 00:00:00 0-64 YRS (1 of 2 - Medical C enter PPSV23) [code = PNEUMOCOCCAL VACCINE 0-64 YRS (1 of 2 - PPSV23)] Future Scheduled 1975-11-[address] [facility] Test 00:00:00 0-64 YRS (1 of 2 - Medical C enter PPSV23) [code = PNEUMOCOCCAL VACCINE 0-64 YRS (1 of 2 - PPSV23)] Future Scheduled [address] [facility] Test 00:00:00 malignant neoplasm of Medica l Center breast (procedure) [code = 475572496] Future Scheduled [address] [facility] Test 00:00:00 malignant neoplasm of Medica l Center colon (procedure) [code = 794883917] Future Scheduled [address] [facility] Test 00:00:00 malignant neoplasm of Medica l Center breast (procedure) [code = 200501980] Future Scheduled [address] [facility] Test 00:00:00 [facility] colon (procedure) [code = 094359418] Future Scheduled COVID-19 [facility]INE ([facility] [code = COVID-19 VACCINE (1)] Future Scheduled [facility] (procedure[facility] [code = 840563741] Future Scheduled [facility] Test malignant neoplasm of cervix (procedure) [code = 053560272] Future Scheduled BREAST CANCER [facility] Test SCREENING [code = BREAST CANCER SCREENING] Future Scheduled COL[facility]OSCOPY [facility] [code = COLONOSCOPY SCREENING] Future Scheduled SHINGLES VACCINES (#[facility]) [facility] [code = SHINGLES VACCINES (#1)] Future Scheduled [facility]INE [facility] [code = INFLUENZA VACCINE] Encounters Start End Encounter Admission Attending Care Care Encounter Source Date/Time Date/Time Type Type Clinicians Facility Department ID 2020-04-03 Inpatient UR [facility] Internal [id number] SLE 17:24:00 Jose TAPIA 2020-06-17 2020-06-17 Outpatient NIKKY_JULIO [facility] [id number] [place] 09:30:00 09:30:00 _ANN [id number] [facility] 2020-06-03 2020-06-03 [address] NIKKY_JULIO [facility] [id number] [place] 10:24:00 10:24:00 _ANN [id number] [facility] 2020-04-11 2020-04-11 [id number] [facility] 12:41:07 13:11:07 [facility] 2020-04-11 2020-04-11 Outpatient TIGIST PAUL SLE [id number] [facility] 00:00:00 00:00:00 TETE 2020-04-10 2020-04-10 Telephone Mita [facility] [id number] 00:[facility]00 00:00:00 Patys [facility] 2020-04-09 2020-04-09 [facility] [id number] [place] 02:29:00 02:29:00 1118 [facility] 2020-04-03 2020-04-04 [facility] Yee Adnrews [facility] [id number] [facility] 17:24:00 22:08:00 Encounter Festus Mao [facility] 2020-04-04 2020-04-04 Outpatient [facility] [id number] [place] 12:37:00 12:37:00 [id number] da [facility] 2020-04-03 2020-04-03 Travel [facility] [id number] [facility] 00:[facility]00 00:00:00 [facility] 2020-04-02 2020-04-[address] [facility] [id number] 00:00:00 00:00:00 carol ann WallsamyHelio dahl [facility] 2020-03-13 2020-03-[address] [facility] [id number] 01:25:00 12:12:00 Encounter [facility]a [facility] 2020-03-18 2020-03-18 Surgery Herb [facility] [id number] 15:25:00 18:55:00 Tavon Wilkinson [facility] 2020-03-18 2020-03-18 Anesthesia Socrates Jacobsen [facility] [id number] 16:30:00 17:57:00 Event Melo Osei [facility] 2020-03-18 2020-03-18 Travel [facility] [id number] [facility] 00:00:00 00:00:00 [facility] 2020-03-17 2020-03-17 Orders [facility] [id number] [facility] 00:00:00 00:00:00 Only [facility] 2020-03-13 2020-03-13 Outpatient ER SELWYN [facility] Neurology [id number] [facility] 01:25:00 01:25:00 MAHMOUD Results Test Description Test Time Test Comments Results Result Comments Source Basic metabolic panel 2020-04-04 10:45:00 Test Item Value Reference Range Interpretation Comme nts Sodium (test code = 135 meq/L 136-145 L 2951-2) Potassium (test code = 4.4 meq/L 3.5-5.1 Speci men slightly 2823-3) hemolyzed Chloride (test code = 106 meq/L 98-107 2075-0) CO2 (test code = 8-9) 21 meq/L 22-29 L BUN (test code = 3094-0) 15 mg/dL 7-21 Creatinine (test code = 0.80 mg/dL 0.57-1.25 Spec imen slightly 2160-0) hemolyzed Glucose (test code = 88 mg/dL 70-105 2345-7) Calcium (test code = 8.6 mg/dL 8.4-10.2 47076-7) EGFR (test code = 37806-5) 76 mL/min/1.73 sq m ESTIMATED GFR IS NOT ACCURATE CREATININE RONALD ROMINA IN PREDICTING GLOMERULAR FILT RATION RATE. ESTIMATED GFR IS NOT APPLICAB LE FOR DIALYSIS PATIEN TSDavid ALYSSA (test code = ALYSSA) Screener And Blender ID - OSVALDO C Lab Interpretation (test Abnormal code = 23932-1) [facility] [id number] 10:45:00 Test Item Value Reference Range Interpretation Comments Protein, Total (test 6.5 See_Comment Specime n slightly code = 2885-2) hemolyzed [Automated message] The system which generated this result transmit morena reference range : 6.0 - 8.3 gm/dL . The reference range was not u sed to interpret th is result as normal/abnormal . Albumin (test code = 3.3 g/dL 3.5-5.0 L Specime n slightly 27969-0) hemolyzed Total Bilirubin (test 0.5 mg/dL 0.2-1.2 Specim en slightly code = 1974-2) hemolyzed Bilirubin, Direct 0.3 mg/dL 0.1-0.5 Specimen s lightly (test code = 1968-7) hemolyz ed Alkaline Phosphatase 68 U/L 40-150 (test code = 6768-6) AST (test code = 54 U/L 5-34 H Specimen sl ightly 1920-8) hemolyzed ALT (test code = 37 U/L 6-55 Specimen sl ightly 1742-6) hemolyzed ALYSSA (test code = ALYSSA) Screener And Blender ID - OSVALDO C Lab Interpretation Abnormal (test code = 03068-7) [facility] [id number] 10:45:00 Test Item Value Reference Range Interpretation Comments Sodium (test code = 135 meq/L 136-145 L 2951-2) Potassium (test code = 4.4 meq/L 3.5-5.1 Speci men slightly 2823-3) hemolyzed Chloride (test code = 106 meq/L 98-107 2075-0) CO2 (test code = 21 meq/L 22-29 L 2028-9) BUN (test code = 15 mg/dL 7-21 3094-0) Creatinine (test code 0.80 mg/dL 0.57-1.25 Specim en slightly = 2160-0) hemolyzed Glucose (test code = 88 mg/dL 70-105 2345-7) Calcium (test code = 8.6 mg/dL 8.4-10.2 32190-7) EGFR (test code = 76 mL/min/1.73 [place] [address]-1) NOT ACCURATE CREATININE CLEARANCE IN PREDICTING GLOMERULAR FILTRATION RATE . ESTIMATED GFR I S NOT APPLICABLE FOR DIALYSIS PATIENTS. ALYSSA (test code = ALYSSA) Screener And Blender ID - OSVALDO C Lab Interpretation Abnormal (test code = 34686-5) [facility] [id number] 10:45:00 Test Item Value Reference Range Interpretation Comments Protein, Total (test 6.5 See_Comment Specime n slightly code = 2885-2) hemolyzed [Automated message] The system which generated this result transmit morena reference range : 6.0 - 8.3 gm/dL . The reference range was not u sed to interpret th is result as normal/abnormal . Albumin (test code = 3.3 g/dL 3.5-5.0 L Specime n slightly 46570-7) hemolyzed Total Bilirubin (test 0.5 mg/dL 0.2-1.2 Specim en slightly code = 1975-2) hemolyzed Bilirubin, Direct 0.3 mg/dL 0.1-0.5 Specimen s lightly (test code = 1967-7) hemolyz ed Alkaline Phosphatase 68 U/L 40-150 (test code = 6768-6) AST (test code = 54 U/L 5-34 H Specimen sl ightly 1920-8) hemolyzed ALT (test code = 37 U/L 6-55 Specimen sl ightly 1742-6) hemolyzed ALYSSA (test code = ALYSSA) Screener And Blender ID - OSVALDO C Lab Interpretation Abnormal (test code = 58423-9) [facility]IC [id number] 10:45:00 Test Item Value Reference Range Interpretation [...] 697) EGFR (BEAKER) (test 76 mL/min/1.73 ESTIMA MORENA GFR IS code = 1092) sq m NOT ACCURATE CREATININE CLEARANCE IN PREDICTING GLOMERULAR FILTRATION RATE . ESTIMATED GFR I S NOT APPLICABLE FOR DIALYSIS PATIEN TS. Screener And Blender ID - OSVALDO [facility] FUNCTION [id number] 10:45:00 Test Item Value Reference Range Interpretation [...] Specimen slightly (test code = 347) hemolyzed Screener And Blender ID - MAY CCBC W/PLT COUNT & AUTO [id number] 07:25:00 Test Item Value Reference Range Interpretation Comments WHITE BLOOD CELL COUNT 8.8 K/ L 3.5-10.5 Pleas e disregard (BEAKER) (test code = result s. Instrument 775) auto-verified clotted CBC w/d iff. [id number] notifi ed to redraw.This is a corrected resul t. Previous result was 8.8 K/ L on 04/04/2020 at 0 704 [employer] RED BLOOD CELL COUNT 4.18 M/ L 3.93-5.22 Please disregard (BEAKER) (test code = result s. Instrument 761) auto-verified clotted CBC w/d iff. [id number] notifi ed to redraw.This is a corrected resul t. Previous result was 4.18 M/ L on 04/04/2020 at 0 704 [employer] HEMOGLOBIN (BEAKER) 13.5 GM/DL 11.2-15.7 Please d isregard (test code = 410) results. I nstrument auto-verified clotted CBC w/d iff. [id number] notifi ed to redraw.This is a corrected resul t. Previous result was 13.5 GM/DL on 04/04/2020 at 0 704 [employer] HEMATOCRIT (BEAKER) 42.2 % 34.1-44.9 Please d isregard (test code = 411) results. I nstrument auto-verified clotted CBC w/d iff. [id number] notifi ed to redraw.This is a corrected resul t. Previous result was 42.2 % on 04/04 at 0704 [employer] MEAN CORPUSCULAR VOLUME 101.0 fL 79.4-94.8 H Plea se disregard (BEAKER) (test code = result s. Instrument 753) auto-verified clotted CBC w/d iff. [id number] notifi ed to redraw.This is a corrected resul t. Previous result was 101.0 fL on 04/04/2020 at 0 704 [employer]ITS CONSULTANT MEAN CORPUSCULAR 32.3 pg 25.6-32.2 H Please disr egard HEMOGLOBIN (BEAKER) results. Instrument (test code = 751) auto-verif ied clotted CBC w/d iff. [id number] notifi ed to redraw.This is a corrected resul t. Previous result was 32.3 pg on 04/04/2020 at 0 704 [employer]EFITS CONSULTANT MEAN CORPUSCULAR 32.0 GM/DL 32.2-35.5 L Please disr egard HEMOGLOBIN CONC results. Ins trument (BEAKER) (test code = auto-v erified 752) clotted CBC w/d iff. [id number] notifi ed to redraw.This is a corrected resul t. Previous result was 32.0 GM/DL on 04/04/2020 at 0 704 [employer] RED CELL DISTRIBUTION 13.2 % 11.7-14.4 Please disregard WIDTH (BEAKER) (test results . Instrument code = 412) auto-verified clotted CBC w/d iff. [id number] notifi ed to redraw.This is a corrected resul t. Previous result was 13.2 % on 04/04 at 0704 [employer] CONS[employer] PLATELET COUNT (BEAKER) 56 K/CU MM 150-450 L Plea se disregard (test code = 756) results. I nstrument auto-verified clotted CBC w/d iff. [id number] notifi ed to redraw.This is a corrected resul t. Previous result was 56 K/CU MM on 04/04/2020 at 0 704 [employer]ENEFITS CONSULTANT MEAN PLATELET VOLUME 10.9 fL 9.4-12.3 Please disregard (BEAKER) (test code = result s. Instrument 754) auto-verified clotted CBC w/d iff. [id number] notifi ed to redraw.This is a corrected resul t. Previous result was 10.9 fL on 04/04/2020 at 0 704 [employer] NUCLEATED RED BLOOD 0 /100 WBC 0-0 This is a corrected CELLS (BEAKER) (test result. Previous code = 413) result was 0 /1 00 WBC on 04/04/20 20 at 0704 [employer] NEUTROPHILS RELATIVE 68 % Please disregard PERCENT (BEAKER) (test resul ts. Instrument code = 429) auto-verified clotted CBC w/d iff. [id number] notifi ed to redraw.This is a corrected resul t. Previous result was 68 % on 020 at 0704 [employer] LYMPHOCYTES RELATIVE 24 % Please disregard PERCENT (BEAKER) (test resul ts. Instrument code = 430) auto-verified clotted CBC w/d iff. [id number] notifi ed to redraw.This is a corrected resul t. Previous result was 24 % on 020 at 0704 [employer]EFITS CONSULTANT MONOCYTES RELATIVE 6 % Please di sregard PERCENT (BEAKER) (test resul ts. Instrument code = 431) auto-verified clotted CBC w/d iff. [id number] notifi ed to redraw.This is a corrected resul t. Previous result was 6 % on 04/04/20 20 at 0704 [employer]EFITS CONSULTANT EOSINOPHILS RELATIVE 1 % Please disregard PERCENT (BEAKER) (test resul ts. Instrument code = 432) auto-verified clotted CBC w/d iff. [id number] notifi ed to redraw.This is a corrected resul t. Previous result was 1 % on 04/04/20 20 at 0704 B[employer]EFITS CONSULTANT BASOPHILS RELATIVE 1 % Please di sregard PERCENT (BEAKER) (test resul ts. Instrument code = 437) auto-verified clotted CBC w/d iff. [id number] notifi ed to redraw.This is a corrected resul t. Previous result was 1 % on 04/04/20 20 at 0704 [employer]EFITS CONSULT[employer] NEUTROPHILS ABSOLUTE 6.01 K/ L 1.56-6.13 Please disregard COUNT (BEAKER) (test results . Instrument code = 670) auto-verified clotted CBC w/d iff. [id number] notifi ed to redraw.This is a corrected resul t. Previous result was 6.01 K/ L on 04/04/2020 at 0 704 [employer]ITS [employer]ANT LYMPHOCYTES ABSOLUTE 2.11 K/ L 1.18-3.74 Please disregard COUNT (BEAKER) (test results . Instrument code = 414) auto-verified clotted CBC w/d iff. [id number] notifi ed to redraw.This is a corrected resul t. Previous result was 2.11 K/ L on 04/04/2020 at 0 [facility] [employer] MONOCYTES ABSOLUTE 0.54 K/ L 0.24-0.36 H Please di sregard COUNT (BEAKER) (test results . Instrument code = 415) auto-verified clotted CBC w/d iff. B#[id number] notifi ed to redraw.This is a corrected resul t. Previous result was 0.54 K/ L on 04/04/2020 at 0 704 [employer] EOSINOPHILS ABSOLUTE 0.10 K/ L 0.04-0.36 Please disregard COUNT (BEAKER) (test results . Instrument code = 416) auto-verified clotted CBC w/d iff. B#[id number] notifi ed to redraw.This is a corrected resul t. Previous result was 0.10 K/ L on 04/04/2020 at 0 704 [employer] BASOPHILS ABSOLUTE 0.05 K/ L 0.01-0.08 Please di sregard COUNT (BEAKER) (test results . Instrument code = 417) auto-verified clotted CBC w/d iff. B#[id number] notifi ed to redraw.This is a corrected resul t. Previous result was 0.05 K/ L on 04/04/2020 at 0 704 [employer] IMMATURE 0 % 0-1 Please disregar d GRANULOCYTES-RELATIVE result s. Instrument PERCENT (BEAKER) (test auto- verified code = 2801) clotted CBC w/d iff. B#[id number] notifi ed to redraw.This is a corrected resul t. Previous result was 0 % on 04/04/20 [address] [place] [address] CBC with platelet count + automated [id number] 07:25:00WBCComment: Please disregard results. Instrument auto-verified clotted CBC w/diff. B#[id number] notifiedto redraw. This is a corrected result. Previous result was 8.8 K/L on 04/04/[address] [place], [place] [address]RBCComment: Please disregard results. Instrument auto-verified clotted CBC w/diff. B#[id number] notified to redraw. This is a corrected result. Previous result was 4.18 M/L on 04/04/[address] [place], [place] [address]HemoglobinComment: Please disregardresults. Instrument auto-verified clotted CBC w/diff. B#[id number] notified to redraw. This is a corrected result. Previous result was 13.5 GM/DL on 04/04/[address] [place], [place] [address]HematocritComment: Please disregard results. Instrument auto- verified clotted CBC w/diff. B#[id number] notified to redraw. This is a corrected result. Previous result was 42.2 % on 04/04/[address] [place], [place] [address]MCVComment: Please disregard results. Instrument auto-verified clotted CBC w/diff. B#[id number] notified to redraw. This is a corrected result. Previous result was 101.0 fL on 04/04/[address] [place], [place] [address]MCHComment: Please disregard results. Instrument auto-verified clotted CBC w/diff. B#[id number] notified to redraw. This is a corrected result. Previous result was 32.3 pg on 04/04/[address] [place], [place] [address]MCHCComment: Please disregard results. Instrument auto-verified clotted CBC w/diff. B#[id number] notified to redraw. This is a corrected result. Previous result was 32.0 GM/DL on 04/04/[address] [place], [place] [address]RDWComment: Please disregard results. Instrument auto-verified clotted CBC w/diff. B#[id number] notified to redraw. This is a corrected result. Previous result was 13.2 % on 04/04/[address] [place], [place] [address]PlateletsComment: Please disregard results. Instrument auto- verified clotted CBC w/diff. B#[id number] notified to redraw. This is a corrected r esult. Previous result was 56 K/CU MM on 04/04/[address] [place], [place] [address]MPVComment: Please disregard results. Instrument auto- verified clotted CBC w/diff. B#[id number] notified to redraw. This is a corrected result. Previous result was 10.9 fL on 04/04/[address] [place], [place] [address]nRBCComment: This is a corrected result. Previous result was 0 /100 WBC on 04/04/[address] [place], [place] [address]% NeutrosComment: Please disregardresults. Instrument auto-verified clotted CBC w/diff. B#[id number] notified to redraw. This is a corrected result. Previous result was 68 % on 04/04/[address] [place] [place], [place] [address]%LymphsComment: Please disregard results. Instrument auto-verified clotted CBC w/diff. B#[id number] notified to redraw. This is a corrected result. Previous result was 24 % on 04/04/[address] [place] [address]% MonosComment: Please disregard results. Instrument auto-verified clotted CBC w/diff. B#[id number] notified to redraw. This is a corrected result. Previous result was 6 % on 04/04/[address] [place] [address]% EosComment: Please disregard results. Instrument auto-verified clotted CBC w/diff. B#[id number] notified to redraw. This is a corrected result. Previous result was 1 % on 04/04/[address] [place] [address]% BasoComment: Please disregard results. Instrument auto-verified clotted CBC w/diff. B#[id number] notified to redraw. This is a corrected result. Previous result was 1 % on 04/04/[address] [place] [address]# NeutrosComment: Please disregard results. Instrument auto- verified clotted CBC w/diff. B#[id number] notified to redraw. This is a corrected result. Previous result was 6.01 K/L on 04/04/[address] [place] [address]# LymphsComment: Please disregard results. Instrument auto-verified clotted CBC w/diff. B#[id number] notified to redraw. This is a corrected result. Previous result was 2.11 K/L on 04/04/[address] [place] [address]# MonosComment: Please disregard results. Instrument auto-verified clotted CBC w/diff. B#[id number] notified to redraw. This is a corrected result. Previous result was 0.54 K/L on 04/04/[address] [place] [address]# EosComment: Please disregard results. Instrument auto-verified clotted CBC w/diff. B#[id number] notified to redraw. This is a corrected result. Previous result was 0.10 K/Fredi 04/04/[address] [place] [address]# BasoComment: Please disregard results. Instrument auto-verified clotted CBC w/diff. B#[id number] notified to redraw. This is a corrected result. Previous result was 0.05 K/L on 04/04/[address] [place], [place] [address]Immature Granulocytes-RelativeComment: Please disregard results. Instrument auto-verified clotted CBCw/diff. B#[id number] notified to redraw. This is a corrected result. Previous result was 0 % on 04/04/[address] [place], [place] [address]CBC with platelet count + automated [id number] 07:25:00WBCComment: Please disregard results. Instrument auto- verified clotted CBC w/diff. B#[id number] notifiedto redraw. This is a corrected result. Previous result was 8.8 K/L on 04/04/[address] [place], [place] [address]RBCComment: Please disregard results. Instrument auto- verified clotted CBC w/diff. B#[id number] notified to redraw. This is a corrected result. Previous result was 4.18 M/L on 04/04/[address] [place], [place] [address]HemoglobinComment: Please disregardresults. Instrument auto-verified clotted CBC w/diff. B#[id number] notified to redraw. This is a corrected result. Previous result was 13.5 GM/DL on 04/04/[address] [place], [place] [address]HematocritComment: Please disregard results. Instrument auto-verified clotted CBC w/diff. B#[id number] notified to redraw. This is a corrected result. Previous result was 42.2 % on 04/04/[address] [place], [place] [address]MCVComment: Please disregard results. Instrument auto-verified clotted CBC w/diff. B#[id number] notified to redraw. This is a corrected result. Previous result was 101.0 fL on 04/04/[address] [place], [place] [address]MCHComment: Please disregard results. Instrument auto-verified clotted CBC w/diff. B#[id number] notified to redraw. This is a corrected result. Previous result was 32.3 pg on 04/04/[address] [place], [place] [address]MCHCComment: Please disregard results. Instrument auto-verified clotted CBC w/diff. B#[id number] notified to redraw. This is a corrected result. Previous result was 32.0 GM/DL on 04/04/[address] [place], [place] [address]RDWComment: Please disregard results. Instrument auto-verified clotted CBC w/diff. B#[id number] notified to redraw. This is a corrected result. Previous result was 13.2 % on 04/04/[address] [place], [place] [address]PlateletsComment: Please disregard results. Instrument auto-verified clotted CBC w/diff. B#[id number] notified to redraw. This is a corrected result. Previous result was 56 K/CU MM on 04/04/[address] [place], [place] [address]MPVComment: Please disregard results. Instrument auto-verified clotted CBC w/diff. B#[id number] notified to redraw. This is a corrected result. Previous result was 10.9 fL on 04/04/[address] [place], [place] [address]nRBCComment: This is a corrected result. Previous result was 0 /100 WBC on 04/04/[address] [place], [place] [address]% NeutrosComment: Please disregardresults. Instrument auto- verified clotted CBC w/diff. B#[id number] notified to redraw. This is a corrected result. Previous result was 68 % on 04/04/[address] [place] [place], [place] [address]%LymphsComment: Please disregard results. Instrument auto- verified clotted CBC w/diff. B#[id number] notified to redraw. This is a corrected result. Previous result was 24 % on 04/04/[address] [place] [address]% MonosComment: Please disregard results. Instrument auto- verified clotted CBC w/diff. B#[id number] notified to redraw. This is a corrected result. Previous result was 6 % on 04/04/[address] [place] [address]% EosComment: Please disregard results. Instrument auto- verified clotted CBC w/diff. B#[id number] notified to redraw. This is a corrected result.Previous result was 1 % on 04/04/[address] [place] [address]% BasoComment: Please disregard results. Instrument auto-verified clotted CBC w/diff. B#[id number] notified to redraw. This is a corrected result. Previous result was 1 % on 04/04/[address] [place] [address]# NeutrosComment: Please disregard results. Instrument auto- verified clotted CBC w/diff. B#[id number] notified to redraw. This is a corrected result. Previous result was 6.01 K/L on 04/04/[address] [place] [address]# LymphsComment: Please disregard results. Instrument auto-verified clotted CBC w/diff. B#[id number] notified to redraw. This is a corrected result. Previous result was 2.11 K/L on 04/04/[address] [place] [address]# MonosComment: Please disregard results. Instrument auto-verified clotted CBC w/diff. B#[id number] notified to redraw. This is a corrected result. Previous result was 0.54 K/L on 04/04/[address] [place] [address]# EosComment: Please disregard results. Instrument auto-verified clotted CBC w/diff. B#[id number] notified to redraw. This is a corrected result. Previous result was 0.10 K/Fredi 04/04/[address] [place] [address]# BasoComment: Please disregard results. Instrument auto-verified clotted CBC w/diff. B#[id number] notified to redraw. This is a corrected result. Previous result was 0.05 K/L on 04/04/[address] [place], [place] [address]Immature Granulocytes-RelativeComment: Please disregard results. Instrument auto-verified clotted CBCw/diff. B#[id number] notified to redraw. This is a corrected result. Previous result was 0 % on 04/04/2020 [facility] [address] [facility] WITHOUT [id number] 20:08:00Status post E[facility] : 1970 Sex: FFINAL REPORT CT, BRAIN, WITHOUT CONTRAST INDICATION: Hydrocephalus TECHNIQUE: Noncontrast axial imaging was obtained from the vertex to the skull base. Axial images were reconstructedusing a bone algorithm. DOSE REDUCTION: Dose modulation, [...] caliber is unchanged. No intracranial hemorrhage or abnorm al extra-axial collection. No evidence of acute territorial [...] is unchanged. There is trace pneumocephalus. Signed: Sally Bowling Verified Date/Time: 03/18/2020 20:08:27 Pregnancy Screen, [id number] 14:52:00 Test Item Value Reference Range Interpretation Comments Preg Test, Ur (test code = 2112-1) Negative [facility] [id number] 14:52:00 Test Item Value Reference Range Interpretation Comments Preg Test, Ur (test code = 2112-1) Negative [facility] S[facility], [id number] 14:52:00 Test Item Value Reference Range Interpretation Comments TEST URINE (BEAKER) (test Negative code = 583) ABORH, [id number] 17:05:00 Test Item Value Reference Range Interpretation Comments ABO Grouping (test code = 2588) O Rh Factor (test code = 2589) NEG [facility]AB[facility], [id number] 17:05:00 Test Item Value Reference Range Interpretation Comments ABO Grouping (test code = 2588) O Rh Factor (test code = 2589) NEG [facility] HospitalType [facility] screen, [id number] 16:01:00 Test Item Value Reference Range Interpretation Comments ABO/RH AUTOMATED (BEAKER) (test O NEGATIVE code = 2260) Ab Scrn (test code = 890-4) NEGATIVE [facility], [id number] 16:01:00 Test Item Value Reference Range Interpretation Comments ABO/RH AUTOMATED (BEAKER) (test O NEGATIVE code = 2260) Ab Scrn (test code = 890-4) NEGATIVE [facility] HospitalPT/[id number] 15:24:00 Test Item Value Reference Interpretation Comments Range Protime (test code = 13.4 See_Comment [Autom ated 8682-2) message] The system which generated this result transmitted reference range : 11.9 - 14.2 seconds. The reference range was not used to interpret this result as normal/abnormal . INR (test code = 1.05 See_Comment [Automated 2741-6) message] The system which generated this result transmitted reference range : <=5.90. The reference range was not used to interpret this result as normal/abnormal . PTT (test code = 25.9 See_Comment [Automated 02964-2) message] The system which generated this result [...] valves. Lab Interpretation Normal (test code = 88703-0) [facility]PT/[id number] 15:24:00 Test Item Value Reference Interpretation Comments Range Protime (test code = 13.4 See_Comment [Autom ated 5902-2) message] The system which generated this result transmitted reference range : 11.9 - 14.2 seconds. The reference range was not used to interpret this result as normal/abnormal . INR (test code = 1.05 See_Comment [Automated 9721-6) message] The system which generated this result transmitted reference range : <=5.90. The reference range was not used to interpret this result as normal/abnormal . PTT (test code = 25.9 See_Comment [Automated 60449-0) message] The system which generated this result [...] valves. Lab Interpretation Normal (test code = 62545-2) [facility]PT/[id number] 15:24:00 Test Item Value Reference Range Interpretation Comments PROTIME (BEAKER) (test code = 13.4 seconds 11.9-14.2 759) INR (HAILEE) (test code = 370) 1.05 <=5.90 PARTIAL THROMBOPLASTIN TIME 25.9 seconds 22.5-36.0 (HAILEE) (test code = 760) Effective 10/18/2018: PT Reference Range ChangeNew: 11.9-14.2 Previous: 11.7- 14.7RECOMMENDED COUMADIN/WARFARIN INR THERAPY RANGESSTANDARD DOSE: 2.0-3.0 Includes: PROPHYLAXIS for venous thrombosis, systemic embolization; TREATMENT for venous thrombosis and/or pulmonary embolus.HIGH RISK: Target INR is 2.5-3.5 for patients wiht mechanical heart valves.MR, BRAIN, [id number] 09:18:00 Needs to include cine study to assess CSF flow through the aqueductUnlisted Reason for Exam - Click Yes and Enter Reason Below->YesUnlisted Reason for Exam->Needs to include cine study to assess CSF flow through the aqueduct [facility] : 1970 Sex: FFINAL REPORT MR, BRAIN, WITH \\T\\ WITHOUT CONTRAST INDICATION: HydrocephalusNeeds to include cine study to assess CSF flow through the aqueduct Technique: MRI of the brain utilizing axial T1, T2, FLAIR, GRE, DWI, sagittal T1; and postgadolinium axial, sagittal, and coronal T1-weightedimages. COMPARISON: March 13, 2020 FINDINGS: Ventricular size is unchanged with the third ventricle measuring up to 1.7 cm in transverse dimension. Minimal T2/FLAIR hyperintense signal surrounding the lateral ventricles concerning for mild transependymal flow. There is disproportionate dilatation ofthe lateral and third ventricles with thinning of the corpus callosum and flattening of the fornices. Fourth ventricle appears relatively decompressed. 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 Brain parenchyma is otherwise normal in morphology. Midline structures are normally developed.No restricted diffusion to suggest recent ischemic insult. [...] attempted again Tuesday03/17/2020 following consultation with vendor fraud representative. If phase contrast images are added to this accession, this report may be addended. Signed: Danielle Montemayor MDReport Verified Date/Time: 03/16/2020 09:18:26 Reading Location: [address] Neuro Reading Room , CHEST, 1 VIEW, NON [id number] 13:48:00Reason for exam:->pre opShould this be performed at the bedside?->Yes [facility] : 1970 Sex: FFINAL REPORT TECHNIQUE: Frontal view of the chest. INDICATION: 49-year-old woman for preoperative evaluation. COMPARISON: None. FINDINGS: LINES/TUBES: None. LUNGS: Lungs are well inflated. Mild curvilinear opacities in both lung bases. PLEURA: No pneumothorax or significant pleural effusion. HEART AND MEDIASTINUM: Cardiomediastinal silhouette is within normal limits. Atheroscleroticcalcifications in the thoracic aorta. BONES AND SOFT TISSUES: Unremarkable. IMPRESSION:No acute cardiopulmonary abnormalities. Mild curvilinear opacities in both lung bases, likely atelectasis. Signed:Antonella Yañez MDReport Verified Date/Time: 03/15/2020 13:48:00 Reading Location: [facility] B1 C013Y CT Body Reading Room CBC W/PLT COUNT & AUTO [id number] 06:54:00 Test Item Value Reference Range Interpretation [...] (BEAKER) (test code = 2801) BASIC METABOLIC [id number] 06:46:00 Test Item Value Reference Range Interpretation [...] 697) EGFR (BEAKER) (test 73 mL/min/1.73 ESTIMA MORENA GFR IS code = 1092) sq m NOT ACCURATE CREATININE CLEARANCE IN PREDICTING GLOMERULAR FILTRATION RATE . ESTIMATED GFR I S NOT APPLICABLE FOR DIALYSIS PATIEN TS. Screener And Blender ID - EDASIHEPATIC FUNCTION [id number] 06:46:00 Test Item Value Reference Range Interpretation [...] (test code = 43 U/L 6-55 347) Screener And Blender ID - EDASIMR, BRAIN, WITHOUT [id number] 18:03:00Needs to include cine study to assess CSF flow through the aqueduct Unlisted Reason for Exam - ClickYes and Enter Reason Below->Yes Unlisted Reason for Exam- >Needs to include cine study to assess CSF flow through the aqueduct Deos the patient have an implanted electronic device?->No [facility] : 1970 Sex: FFINAL REPORT MR, BRAIN, WITHOUT CONTRAST INDICATION: HydrocephalusNeeds to includecine study to assess CSF flow through the [...] to sulci, and mild transependymal edema. Signed: Sally Bowling Verified Date/Time: 03/13/2020 18:03:00 2D Echo W/Doppler(CW/PW/Color)2020-03-13 17:29:26Ejection FractionSLEH ECHO HEARTLAB [facility] W/Doppler(CW/PW/Color)2020-03-13 17:29:26Ejection FractionSLEH ECHO [facility]ARTLAB [facility]omatic [facility] 2020-03-13 11:02:00 Test Item Value Reference Range Interpretation Comments SARS-COV2/RT-PCR Negative Not Detected, (test code = Negative, See 46375-6) external report for linked test SARS-COV-2 [facility] PERFORMING LAB (test code = 02077-6) ALYSSA (test code = Negative result for [...] of the Act. Fact Sheet for Healthcare Providers:https://www.[employer].com/sites/default/f melvin/product/documents/F act_Sheet_HC_Providers_L pba_JSIP-TdB-2.pdf Fact Sheet for Healthcare Patients:https://www.[employer]/sites/default/fi les/product/documents/Fa ct_Sheet_Patients_Lyra_S ARS-CoV-2.pdf Performing Laboratory:[facility] [place] [address] [facility]omatic ONLY[facility]2020-03-13 11:02:00 Test Item Value Reference Range Interpretation Comments SARS-COV2/RT-PCR Negative Not Detected, (test code = Negative, See 60878-6) external report for linked test SARS-COV-2 [facility] PERFORMING LAB (test code = 78304-2) ALYSSA (test code = Negative result for [...] of the Act. Fact Sheet for Healthcare Providers:https://www.[employer].com/sites/default/f melvin/product/documents/F act_Sheet_HC_Providers_L ycp_WALW-JaB-0.pdf Fact Sheet for Healthcare Patients:https://www.[employer]/sites/default/fi les/product/documents/Fa ct_Sheet_Patients_Lyra_S ARS-CoV-2.pdf Performing Laboratory:[facility], [place] [address] [place], [place] [address]ARS-COV2/RT-PCR ([facility])2020-03-13 11:02:00 Test Item Value Reference Range Interpretation Comments SARS-COV2/RT-PCR (test Negative Not Detected, Negative, code = 9292589) See external report for linked test SARS-COV-2 PERFORMING LAB [facility] (test code = 9575701) Negative result for this test determines that [...] individuals suspected of COVID-19 by their healthcare provider.This test [...] justifying the authorization of the emergency use ofin vitro diagnostic tests for detection and/or diagnosis of COVID-19 is terminated under Section 564(b)(2) of the Act or the EUA is revoked under Section 564(g) of the Act.Fact Sheet for Healthcare Prov iders:https://www.[employer]/sites/default/files/product/documents/Fact_Sheet_HC _Omjyqvhdh_Owpz_YZFC-CqA-9.pdfFact Sheet for Healthcare Patients:https://www.[employer]/sites/default/files/product/docume nts/Jhcx_Clwjm_Vtgjryvn_Bbcw_TJPX-InY-6.pdfPerforming Laboratory:[facility] [place], [place] [address]Yleurmbaou w/Microscopic 2020-03-13 07:57:00 Test Item Value Reference Range Interpretation Comments Color, UA (test code Yellow = 5778-6) Clarity, UA (test Hazy code = 5767-9) Specific Dexter, UA 1.021 1.001-1.035 (test code = 5811-5) pH, UA (test code = 7.0 5.0-8.0 5803-2) Protein, UA (test 20 mg/dL Negative A code = 60200-5) Glucose, UA (test Negative Negative code = 365) Ketones, UA (test 40 mg/dL Negative A code = 2514-8) Bilirubin, UA (test Negative Negative code = 92143-8) Blood, UA (test code Negative Negative = 73436-9) Nitrite, UA (test Positive Negative A code = 5802-4) Leukocytes, UA (test Moderate Negative A code = 5799-2) Urobilinogen, UA 0.2 mg/dL 0.2-1.0 (test code = 89227-1) RBC, UA (test code = 2 See_Comment [Autom ated 85295-4) message] The system which generated this result transmit morena reference range : /HPF. The reference range was not used to interpret this result as normal/abnormal . WBC, UA (test code = 46 See_Comment [Autom ated 5821-4) message] The system which generated this result transmit morena reference range : /HPF. The reference range was not used to interpret this result as normal/abnormal . Bacteria, UA (test Few code = 60852-7) Squam Epithel, UA 1 See_Comment [Automate d (test code = 27154-9) messag e] The system which generated this result transmit morena reference range : /HPF. The reference range was not used to interpret this result as normal/abnormal . Specimen Source (test code = 2795) ALYSSA (test code = ALYSSA) Screener And Blender ID - [auto]Screener And Blender ID - tech Lab Interpretation Abnormal (test code = 77412-5) [facility] w/[id number] 07:57:00 Test Item Value Reference Range Interpretation Comments Color, UA (test code Yellow = 5778-6) Clarity, UA (test Hazy code = 5767-9) Specific Dexter, UA 1.021 1.001-1.035 (test code = 5811-5) pH, UA (test code = 7.0 5.0-8.0 5803-2) Protein, UA (test 20 mg/dL Negative A code = 91268-0) Glucose, UA (test Negative Negative code = 365) Ketones, UA (test 40 mg/dL Negative A code = 2514-8) Bilirubin, UA (test Negative Negative code = 57089-3) Blood, UA (test code Negative Negative = 42587-2) Nitrite, UA (test Positive Negative A code = 5802-4) Leukocytes, UA (test Moderate Negative A code = 5799-2) Urobilinogen, UA 0.2 mg/dL 0.2-1.0 (test code = 91560-5) RBC, UA (test code = 2 See_Comment [Autom ated 95848-6) message] The system which generated this result transmit morena reference range : /HPF. The reference range was not used to interpret this result as normal/abnormal . WBC, UA (test code = 46 See_Comment [Autom ated 5821-4) message] The system which generated this result transmit morena reference range : /HPF. The reference range was not used to interpret this result as normal/abnormal . Bacteria, UA (test Few code = 48207-8) Squam Epithel, UA 1 See_Comment [Automate d (test code = 19324-9) messag e] The system which generated this result transmit morena reference range : /HPF. The reference range was not used to interpret this result as normal/abnormal . Specimen Source (test code = 2795) ALYSSA (test code = ALYSSA) Screener And Blender ID - [auto]Screener And Blender ID - tech Lab Interpretation Abnormal (test code = 78111-4) [facility] [id number] 07:57:00 Test Item Value Reference Range Interpretation [...] = 516) SOURCE(BEAKER) (test code = 2795) Screener And Blender ID - [auto]Screener And Blender ID - techComprehensive metabolic [id number] 07:42:00 Test Item Value Reference Range Interpretation Comments Protein, Total (test 7.7 See_Comment [Autom ated code = 2885-2) message] The system which generated this result transmit morena reference range : 6.0 - 8.3 gm/dL . The reference range was not u sed to interpret th is result as normal/abnormal . Albumin (test code = 4.0 g/dL 3.5-5.0 13267-6) Alkaline Phosphatase 73 U/L 40-150 (test code = 6768-6) Total Bilirubin (test 0.4 mg/dL 0.2-1.2 code = 1975-2) Sodium (test code = 136 meq/L 683-147 8426-2) Potassium (test code 3.9 meq/L 3.5-5.1 = 2823-3) Chloride (test code = 107 meq/L 98-107 2075-0) CO2 (test code = 21 meq/L 22-29 L 2028-9) BUN (test code = 14 mg/dL 7-21 3094-0) Creatinine (test code 0.78 mg/dL 0.57-1.25 = 2160-0) Glucose (test code = 115 mg/dL 70-105 H 2345-7) Calcium (test code = 8.8 mg/dL 8.4-10.2 73299-5) AST (test code = 71 U/L 5-34 H 1920-8) ALT (test code = 49 U/L 6-55 1742-6) EGFR (test code = 78 mL/min/1.73 [place] [address]-8) NOT ACCURATE CREATININE CLEARANCE IN PREDICTING GLOMERULAR FILTRATION RATE . ESTIMATED GFR I S NOT APPLICABLE FOR DIALYSIS PATIEN TS. ALYSSA (test code = ALYSSA) Screener And Blender ID - AAHAMID Lab Interpretation Abnormal (test code = 59408-7) [facility] 07[facility]42:00 Test Item Value Reference Range Interpretation Comments Magnesium (test code = 2.0 mg/dL 1.6-2.6 69044-2) ALYSSA (test code = ALYSSA) Screener And Blender ID - AAHAMID Lab Interpretation (test Normal code = 04151-9) [facility] [id number] 07:42:00 Test Item Value Reference Range Interpretation Comments Protein, Total (test 7.7 See_Comment [Autom ated code = 2885-2) message] The system which generated this result transmit morena reference range : 6.0 - 8.3 gm/dL . The reference range was not u sed to interpret th is result as normal/abnormal . Albumin (test code = 4.0 g/dL 3.5-5.0 49111-4) Alkaline Phosphatase 73 U/L 40-150 (test code = 6768-6) Total Bilirubin (test 0.4 mg/dL 0.2-1.2 code = 1975-2) Sodium (test code = 136 meq/L 910-410 3193-2) Potassium (test code 3.9 meq/L 3.5-5.1 = 2823-3) Chloride (test code = 107 meq/L 98-107 2075-0) CO2 (test code = 21 meq/L 22-29 L 2028-9) BUN (test code = 14 mg/dL 7-21 3094-0) Creatinine (test code 0.78 mg/dL 0.57-1.25 = 2160-0) Glucose (test code = 115 mg/dL 70-105 H 2345-7) Calcium (test code = 8.8 mg/dL 8.4-10.2 45968-2) AST (test code = 71 U/L 5-34 H 1920-8) ALT (test code = 49 U/L 6-55 1742-6) EGFR (test code = 78 mL/min/1.[place] [address]-0) NOT ACCURATE CREATININE CLEARANCE IN PREDICTING GLOMERULAR FILTRATION RATE . ESTIMATED GFR I S NOT APPLICABLE FOR DIALYSIS PATIEN TS. ALYSSA (test code = ALYSSA) Screener And Blender ID - AAHAMID Lab Interpretation Abnormal (test code = 48895-5) [facility] 07:42:00 Test Item Value Reference Range Interpretation Comments Magnesium (test code = 2.0 mg/dL 1.6-2.6 50798-1) ALYSSA (test code = ALYSSA) Screener And Blender ID - AAGRETCHENID Lab Interpretation (test Normal code = 44281-4) [facility] MET[facility] [id number] 07:42:00 Test Item Value Reference Range Interpretation [...] 347) EGFR (BEAKER) (test 78 mL/min/1.73 ESTIMA MORENA GFR IS code = 1092) sq m NOT ACCURATE CREATININE CLEARANCE IN PREDICTING GLOMERULAR FILTRATION RATE . ESTIMATED GFR I S NOT APPLICABLE FOR DIALYSIS PATIEN TS. Screener And Blender ID - [id number] 07:42:00 Test Item Value Reference Range Interpretation Comments MAGNESIUM (BEAKER) (test code = 2.0 mg/dL 1.6-2.6 627) Screener And Blender ID - AAGRETCHENIDPREGNANCY SCREEN, [id number] 07:34:00 Test Item Value Reference Range Interpretation Comments TEST URINE (BEAKER) (test Negative code = 583) CBC W/PLT COUNT & AUTO [id number] 07:31:00 Test Item Value Reference Range Interpretation [...] (test code = 2801) TSH/Free T4 If [id number] 07:30:00 Test Item Value Reference Range Interpretation Comments TSH (test code = 0.363 See_Comment [Automated 49117-1) message] The system which generated this result transmit morena reference range : 0.350 - 4.940 uIU/mL. The reference range was not used to interpret this result as normal/abnormal . ALYSSA (test code = ALYSSA) Screener And Blender ID - AAMongoHQID Lab Interpretation Normal (test code = 05461-9) [facility] T[facility] If [id number] 07:30:00 Test Item Value Reference Range Interpretation Comments TSH (test code = 0.363 See_Comment [Automated 57627-1) message] The system which generated this result transmit morena reference range : 0.350 - 4.940 uIU/mL. The reference range was not used to interpret this result as normal/abnormal . ALYSSA (test code = ALYSSA) Screener And Blender ID - AAHAMID Lab Interpretation Normal (test code = 02130-4) [facility] T4 IF [id number] 07:30:00 Test Item Value Reference Range Interpretation Comments THYROID STIMULATING HORMONE 0.363 uIU/mL 0.350-4.940 (BEAKER) (test code = 772) Screener And Blender ID - AAHAMIDPREGNANCY SCREEN, [id number] 07:40:00 Test Item Value Reference Range Interpretation Comments TEST URINE (BEAKER) (test Negative code = 583) BASIC METABOLIC [id number] 07:30:00 Test Item Value Reference Range Interpretation [...] ESTIMATED GFR. CBC W/PLT COUNT & AUTO [id number] 07:20:00 Test Item Value Reference Range Interpretation [...] code = 2801) URINALYSIS W/ REFLEX URINE [id number] 07:17:00 Test Item Value Reference Range Interpretation [...] code = 516) SOURCE(BEAKER) (test code = 1321)
[2021-12-30] MEDS ORDERED: MULTIVITAMINS 10 ML VIAL (INJ) IV ONE (22:45)
[2021-12-30] MEDS ORDERED: THIAMINE 200 MG/2 ML INJ ONE (22:45)
[2021-12-30] MEDS ORDERED: FOLIC ACID 5 MG/ML VIAL ONE (22:46)
[2021-12-30] MEDS ORDERED: NA CHLORIDE 0.9% 1,000 ML ONE (22:46)
--- NOTE | 2021-12-31 02:15 | ER ---
Nurse's Notes [facility] Name: Pao Gonzales Age: 51 yrs Sex: Female : 1970 Arrival Date: 12/30/2021 Time: 18:49 Bed 8 Private MD: Diagnosis: Abuse of other non-psychoactive substances;Altered mental status, unspecified;Alcohol abuse Presentation: 12/30 18:55 Chief complaint: Patient states: EMS toned out for possible CVA. Upon arrival - zero eh3 deficits. Pt reports pain 10/10 to right side for seven days - no injuries. Pt reports drinking 1 Liter of fireball today - slurred speech noted. Coronavirus screen: At this time, the client does not indicate any symptoms associated with coronavirus-19. Ebola Screen: No symptoms or risks identified at this time. Initial Sepsis Screen: Does the patient meet any 2 criteria? No. Patient's initial sepsis screen is negative. Does the patient have a suspected source of infection? No. Patient's initial sepsis screen is negative. Risk Assessment: Do you want to hurt yourself or someone else? Patient reports no desire to harm self or others. Onset of symptoms was December 30, 2021 at 18:58. 18:55 Method Of Arrival: EMS: [facility] 3 18:55 Acuity: YOSHI 3 eh3 12/31 00:26 Note per lab blood is hemolyzed Phlebotomy here to obtain specimen reports kl bloodhemolyzed with draw Dwaine notified. Triage Assessment: 12/30 18:59 General: Appears in no apparent distress. comfortable, Behavior is calm, cooperative, eh3 appropriate for age. Pain: Complains of pain in right arm and right leg Pain does not radiate. Pain currently is 10 out of 10 on a pain scale. EENT: No signs and/or symptoms were reported regarding the EENT system. Neuro: Level of Consciousness is awake, alert, obeys commands, Oriented to person, place, time, situation. Cardiovascular: Capillary refill < 3 seconds Patient's skin is warm and dry. Respiratory: Airway is patent Respiratory effort is even, unlabored. GI: Abdomen is flat, non-distended. : No signs and/or symptoms were reported regarding the genitourinary system. Derm: No signs and/or symptoms reported regarding the dermatologic system. Musculoskeletal: No signs and/or symptoms reported regarding the musculoskeletal system. 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 - Social history:: Smoking status: Patient denies any tobacco usage or history of. Patient uses alcohol, on a daily basis. Screenin:02 Abuse screen: Denies threats or abuse. Nutritional screening: No deficits noted. kl Tuberculosis screening: No symptoms or risk factors identified. Fall Risk Secondary diagnosis (15 points) AMS. IV access (20 points). Mental Status- Overestimates/Forgets Limitations (15 pts.). Total Lott Fall Scale indicates High Risk Score (45 or more points). Side Rails Up X 2 Frequent Obs/Assessments Occuring Family Present and informed to notify staff if the need to leave the bedside. Assessment: 23:03 General: Appears in no apparent distress. comfortable, Behavior is calm, cooperative. kl Pain: Denies pain. Neuro: Level of Consciousness is awake, alert, obeys commands, Reports drank a botle of fireball and took 2 soma that a friend gave here. Cardiovascular: No deficits noted. Heart tones S1 S2. Respiratory: No deficits noted. Airway is patent Trachea midline Respiratory effort is even, unlabored, Respiratory pattern is regular, symmetrical, Breath sounds are clear bilaterally. GI: No deficits noted. No signs and/or symptoms were reported involving the gastrointestinal system. : No deficits noted. No signs and/or symptoms were reported regarding the genitourinary system. EENT: No deficits noted. No signs and/or symptoms were reported regarding the EENT system. Derm: No deficits noted. No signs and/or symptoms reported regarding the dermatologic system. Vital Signs: 18:55 BP 135 / 88; Pulse 104; Resp 20; Temp 97.9(O); Pulse Ox 96% on R/A; Weight 63.5 kg; 3 Height 5 ft. 6 in. (167.64 cm); Pain 03/01; 12/31 00:14 BP 134 / 86; Pulse 99; Resp 19; Pulse Ox 99% on R/A; kd3 02:43 BP 138 / 82; Pulse 92; Resp 19; Pulse Ox 99% ; kd3 12/30 18:55 Body Mass Index 22.60 (63.50 kg, 167.64 cm) 3 ED Course: 12/30 18:49 Patient arrived in ED. as 18:58 Triage completed. 3 18:59 Arm band placed on right wrist. eh3 21:18 Carol Contreras FNP-C is PHCP. snw 21:19 Gurpreet Suarez MD is Attending Physician. sn 23:02 Inserted saline lock: 22 gauge in left hand, using aseptic technique. kl 23:02 Missed attempt(s): 20 gauge in left antecubital area. 12/31 00:04 Temitope Prado RN is Primary Nurse. kd3 00:14 No provider procedures requiring assistance completed. kd3 00:25 No apparent distress. Resting quietly. Appears to be sleeping. kl 02:43 Patient has correct armband on for positive identification. kd3 02:43 IV discontinued, intact, bleeding controlled, No redness/swelling at site. Pressure kd3 dressing applied. Administered Medications: 12/30 23:10 Drug: Banana Bag - (NS 0.9% 1000 ml, foLIC Acid 1 mg, Thiamine 100 mg, Multivitamin 1 kl amp) Route: IV; Rate: calculated rate; Site: left hand; 12/31 02:44 Follow up: IV Status: Completed infusion kd3 Medication: 00:14 VIS not applicable for this client. kd3 Outcome: 02:15 Discharge ordered by . angelo 02:43 Discharged to home via wheelchair. kd3 02:43 Condition: stable 02:43 Discharge instructions given to patient, Instructed on discharge instructions, follow up and referral plans. Demonstrated understanding of instructions, follow-up care. 02:44 Patient left the ED. kd3 Signatures: Marilu Mccarthy RN RN kl Anderson, Corey, MD MD cha Waters, Shelly, FNP-C FNP-Csnw Nelly Bosch as Temitope Prado RN RN 3 Bridgette Galvez RN RN [facility] Corrections: (The following items were deleted from the chart) 12/30 18:59 18:59 PSHx: None; eh3 eh3
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
[2021-12-31 02:35] LABS: Absolute Lymphocytes (CBC) 3.9 K/uL (0.7-4.9); Hematocrit 38.9 % (36.0-45.0); Lymphocytes % 48.8 % (15.3-44.8); MCV 93.3 fL (80-100); MPV 7.9 fL (7.6-11.3); RBC Red Blood Cell Count 4.17 M/uL (3.86-4.86)
[2021-12-31 02:41] LABS: Protime INR 1.09
[2021-12-31 02:58] LABS: Blood Morphology Comment NOT SEEN (NOT SEEN); Platelet Estimate ADEQ
[2021-12-31 02:59] LABS: ALT/SGPT 111 U/L (12-78); AST/SGOT 128 U/L (15-37); Albumin 3.1 g/dL (3.4-5.0); Alkaline Phosphatase 81 U/L (45-117); BUN Blood Urea Nitrogen 13 mg/dL (7-18); Bicarbonate 24 mmol/L (21-32); Bilirubin Direct 0.2 mg/dL (0-0.2); Bilirubin Total 0.4 mg/dL (0.2-1.0); Glomerular Filtration Rate 105 ml/min (=/>90); Glucose Level 86 mg/dL (74-106); Potassium 3.7 mmol/L (3.5-5.1); Sodium Level 142 mmol/L (136-145)
[2021-12-31 03:53] VITALS: TEMP 97.9
[2021-12-31 04:01] VITALS: O2SAT 99
[2021-12-31 04:04] VITALS: BP 138/82
== END 2021-12-31 02:44 | disposition home or self-care (01) ==
LOC: ER 18:49
DX: R41.82 Altered mental status, unspecified (principal); F55.8 Abuse of other non-psychoactive substances; F10.10 Alcohol abuse, uncomplicated; Z85.3 Personal history of malignant neoplasm of breast; Z88.0 Allergy status to penicillin; Z88.6 Allergy status to analgesic agent; Z86.73 Personal history of transient ischemic attack (TIA), and cerebral infarction without residual deficits
CPT/HCPCS: 36415; 80048; 80076; 80320; 80329; 85025; 85610; 85730; 93005; 96365; 96366; 99283; J3411; J7030